=== PATIENT | female | born 1935 | race Caucasian/White ===

== ENCOUNTER 2020-07-25 08:01 | Emergency (ER) | payer MEDICARE, SELFPAY ==
--- NOTE | ~2020-07-25 | XR_ITS ---
XR wrist RT min 3V DATE: 07/25/2020 08:55 INDICATION: Fall. Right wrist injury. TECHNIQUE: 4 views COMPARISON: None FINDINGS: There is diffuse osteopenia. There are is prominent osteoarthritis at the triscaphe joint. There is mild osteoarthritis at the fir st carpometacarpal joint. There is prominent osteoarthritic change at the second and third metacarpop halangeal joints and especially the interphalangeal joint of the first digit and proximal interphalan geal joints of the third, fourth and fifth digits. No fracture or dislocation, periosteal reaction or bone destruction is detected. IMPRESSION: Polyarticular osteoarthritic arthritis Diffuse osteopenia No fracture or dislocation Reviewed, dictated and finalized at location A.
[2020-07-25 08:12] VITALS: BP 179/89; PULSE 86; RESP 16; TEMP 36.6; O2SAT 98
--- NOTE | 2020-07-25 10:47 | ED.GENADULT ---
HPI - General Adult General Chief complaint: Extremity Injury, Upper Stated complaint: fall, right wrist injury Time Seen by Provider: 07/25/20 08:59 Source: patient, family and RN notes reviewed Mode of arrival: ambulatory Limitations: dementia History of Present Illness HPI narrative: Patient is a 84-year-old female who presented to emergency department for concern of right wrist injury and pain patient presents with her son patient is at a memory care unit they were unsure as to the etiology of the pain son believes that she may have fallen patient on arrival is in the room alert and oriented to self pleasant and only complains of right wrist pain son denies other injuries or concerns Review of Systems Review of Systems: ROS unobtainable: Yes unobtainable due to medical condition PMFSH Past Medical History Medical History (Updated 07/25/20 @ 10:51 by Hira Galo PA-C) Chronic kidney disease (CKD) Dementia Hypertension Social History Social History (Updated 07/25/20 @ 10:49 by Hira Galo PA-C) Smoking status: Never smoker Exam Narrative: Exam Narrative: GENERAL: Well-appearing, well-nourished, and in no acute distress. HEAD: Normocephalic, atraumatic. EYES: PERRLA and EOMI. ENT: Nares clear, no rhinorrhea or epistaxis. Mucous membranes moist. CHEST: Clear to auscultation. No respiratory distress. No wheezes rales or rhonchi HEART: Regular rate and rhythm. No murmur heard. Normal peripheral pulses. ABDOMEN: Soft, nontender, nondistended EXTREMITIES: N tenderness in slight swelling and pain of the right wrist joint SKIN: Warm, dry, no rash. NEURO: Alert and oriented to self. . Neurovascularly intact. Cranial nerves II through XII grossly intact PSYCH: Normal mood and affect. Course Course Emergency Course: Patient will be placed in Aj wrap referred back to primary care son agrees with this plan does not want further evaluation and feels comfortable with her to go home Vital Signs Vital signs: Vital Signs Temperature 97.8 F 07/25/20 08:12 Pulse Rate 86 07/25/20 08:12 Respiratory Rate 16 07/25/20 08:12 Blood Pressure 179/89 H 07/25/20 08:12 Pulse Oximetry 98 07/25/20 08:12 Temperature 97.8 F 07/25/20 08:12 Pulse Rate 86 07/25/20 08:12 Respiratory Rate 16 07/25/20 08:12 Blood Pressure 179/89 H 07/25/20 08:12 Pulse Oximetry 98 07/25/20 08:12 Medical Decision Making MDM Narrative Medical decision making narrative: Patients injury or pain is consistent with musculoskeletal etiology. No signs of neurological or vascular compromise on exam. Compartments and tisues are soft without signs of compartment syndrome. Pain is felt appropriate for further evaluation on an outpatient basis. Vital Signs Vital Signs: Vital Signs Temperature 97.8 F 07/25/20 08:12 Pulse Rate 86 07/25/20 08:12 Respiratory Rate 16 07/25/20 08:12 Blood Pressure 179/89 H 07/25/20 08:12 Pulse Oximetry 98 07/25/20 08:12 Temperature 97.8 F 07/25/20 08:12 Pulse Rate 86 07/25/20 08:12 Respiratory Rate 16 07/25/20 08:12 Blood Pressure 179/89 H 07/25/20 08:12 Pulse Oximetry 98 07/25/20 08:12 Imaging Data Radiologist's impression: ITS Impressions Wrist X-Ray 07/25/20 09:02 IMPRESSION: Polyarticular osteoarthritic arthritis Diffuse osteopenia No fracture or dislocation Discharge Plan Discharge Clinical Impression: Injury of right wrist Patient Disposition: NH Nursing Home/Asst Living Condition: Stable Instructions: Antibiotic Form, Arthralgia (ED) Additional Instructions: Follow up with your primary care doctor in 5 days for re-evaluation. Go to ER for worsening pain, vision changes, nausea/vomiting, fever/chills, weakness, chest pain, shortness of breath, numbness/tingling, slurred speech, difficulty walking, change in mental status etc. or any other concerns. Take any prescribed medications as directed. Adam
[2020-07-25 11:12] VITALS: BP 134/75; PULSE 72; RESP 18; O2SAT 100
== END 2020-07-25 11:13 ==
PROVIDERS: Emergency Provider Emergency Medicine; PCP Internal Medicine
DX: S69.91XA Unspecified injury of right wrist, hand and finger(s), initial encounter (principal); X58.XXXA Exposure to other specified factors, initial encounter
CPT/HCPCS: 73110; 99283

== ENCOUNTER 2020-08-28 12:05 | Emergency (ER) | payer MEDICARE, SELFPAY ==
[2020-08-28] VITALS (14 sets, daily range): BP systolic 138–154; BP diastolic 66–83; PULSE 62–76; RESP 12–27; O2SAT 23–100
[2020-08-28 13:32] LABS: Basophils Absolute Auto 0.1 K/mm3 (0.0-0.1); Basophils Percent Auto 0.6 % (0.2-1.2); Eosinophils Absolute Auto 0.1 K/mm3 (0-0.3); Eosinophils Percent Auto 0.6 % (0-4.4); Hematocrit 33.6 % (37.0-47.0); Hemoglobin 10.9 g/dL (12.0-15.0); Immature Granulocyte Absolute 0.03 K/mm3 (0.00-0.031); Immature Granulocyte Percent A 0.3 % (0-0.5); Lymphocytes Absolute Auto 1.11 K/mm3 (0.9-3.2); Lymphocytes Percent Auto 11.1 % (18.3-44.2); Mean Corpuscular HGB Conc 32.4 g/dl (32-36); Mean Corpuscular Hemoglobin 32.3 pg (26-34); Mean Corpuscular Volume 99.7 fl (80-100); Mean Platelet Volume 9.3 fl (7.4-10.4); Monocytes Absolute Auto 0.8 K/mm3 (0.1-0.6); Monocytes Percent Auto 8.3 % (2.6-8.5); Neutrophils Absolute Auto 7.9 K/mm3 (1.3-6.7); Neutrophils Percent Auto 79.1 % (45.5-73.1); Platelet Count Result 240 k/mm3 (150-375); Red Blood Count 3.37 M/mm3 (4.2-5.4); Red Cell Distribution Width 13.7 % (11.5-14.5)
--- NOTE | 2020-08-28 13:37 | ECG_ITS ---
Measurements Intervals [place] Rate: 67 P: [place]: 0 QRS: -14 QRSD: 94 T: 10 QT: 446 QTc: 474 Interpretive Statements ATRIAL FIBRILLATION VOLTAGE CRITERIA FOR LVH BORDERLINE ST-T WAVE ABNORMALITY- DIFFUSE LEADS BASELINE ARTIFACT- II, III, AVR, AVF, V1-V6 ABNORMAL ECG Electronically Signed On 08-28-2020 13:40:56 CDT by Lencho Bermudez D.O.
[2020-08-28 13:42] LABS: Alanine Aminotransferase 28 U/L (4-35); Albumin Level 4.3 g/dL (3.5-5.1); Alkaline Phosphatase 78 U/L (38-126); Anion Gap 14 mmol/L (8-16); Aspartate Amino Transferase 39 U/L (14-36); Bilirubin,Total 0.6 mg/dL (0.2-1.3); Blood Urea Nitrogen 48 mg/dL (7-17); Calcium 8.9 mg/dL (8.4-10.2); Carbon Dioxide 25 mmol/L (22-30); Chloride 102 mmol/L (98-107); Estimated CRCL calculation 9 ml/min; Estimated Glomerular Filt Rate 10; Glucose 111 mg/dL (65-105); Lipase 193 U/L (23-300); Potassium 3.4 mmol/L (3.4-5.0); Sodium 141 mmol/L (137-145)
--- NOTE | 2020-08-28 13:48 | ED.GENADULT ---
HPI - General Adult General Chief complaint: Unspecified Stated complaint: MUSCLE SPASMS,NAUSEA Time Seen by Provider: 08/28/20 12:09 History of Present Illness HPI narrative: Patient is an 85-year-old female who presents ER with jerking movements of the arms and legs. Began today. Patient lives at [facility] due to dementia and being chronically ill. Receives dialysis Friday. Due for dialysis tomorrow. No recent medication change or other change. Son reports during dialysis on Friday patient had some intermittently low blood pressures. Staff was concerned about intermittent jerking of the arms and legs and referred patient to the ER. Patient has no history of restless leg syndrome or seizure. Related Data Allergies Allergy/AdvReac Type Severity Reaction Status Date / Time clonidine Allergy Unknown Verified 08/28/20 14:11 Review of Systems Review of Systems: ROS unobtainable: Yes unobtainable due to mental status PMFSH Past Medical History Medical History (Updated 08/28/20 @ 14:23 by Filipe Cisse MD) Chronic kidney disease (CKD) Dementia Dialysis patient Hypertension Social History Social History (Updated 07/25/20 @ 10:49 by Hira Galo PA-C) Smoking status: Never smoker Exam Narrative: Exam Narrative: GENERAL: Well-appearing, well-nourished, and in no acute distress. HEAD: Normocephalic, atraumatic. EYES: PERRL and EOMI. CHEST: Clear to auscultation. No respiratory distress. HEART: Regular rate and rhythm. Normal peripheral pulses. ABDOMEN: Soft, nontender, nondistended. EXTREMITIES: Normal range of motion. 2+ edema. SKIN: Warm, dry, no rash. NEURO: Alert and oriented x2. Patient will have 2 or 3 whole body jerks and then rest comfortably. She is in no distress and is conscious throughout. Does not appear to reflect seizure activity. Course Course Emergency Course: Unremarkable evaluation. No UTI. Will start on muscle x-ray to see if it helps with these intermittent jerks. Vital Signs Vital signs: Vital Signs Respiratory Rate 16 08/28/20 12:11 Blood Pressure 138/83 08/28/20 12:11 Pulse Oximetry 23 L 08/28/20 12:11 Pulse Rate 70 08/28/20 14:11 Respiratory Rate 24 H 08/28/20 14:11 Blood Pressure 154/71 H 08/28/20 13:31 Pulse Oximetry 99 08/28/20 14:11 Medical Decision Making Vital Signs Vital Signs: Vital Signs Respiratory Rate 16 08/28/20 12:11 Blood Pressure 138/83 08/28/20 12:11 Pulse Oximetry 23 L 08/28/20 12:11 Pulse Rate 70 08/28/20 14:11 Respiratory Rate 24 H 08/28/20 14:11 Blood Pressure 154/71 H 08/28/20 13:31 Pulse Oximetry 99 08/28/20 14:11 Lab Data Result diagrams: 08/28/20 13:25 08/28/20 13:25 Labs: Lab Results 08/28/20 08/28/20 08/28/20 Range/Units 13:25 13:25 13:57 WBC 10.0 (4.5-10.0) K/mm3 RBC 3.37 L (4.2-5.4) M/mm3 Hgb 10.9 L (12.0-15.0) g/dL Hct 33.6 L (37.0-47.0) % MCV 99.7 (80-100) fl MCH 32.3 (26-34) pg MCHC 32.4 (32-36) g/dl RDW 13.7 (11.5-14.5) % Plt Count 240 (150-375) k/mm3 MPV 9.3 (7.4-10.4) fl Immature Gran % (Auto) 0.3 (0-0.5) % Neut % (Auto) 79.1 H (45.5-73.1) % Lymph % (Auto) 11.1 L (18.3-44.2) % [place] % (Auto) 8.3 (2.6-8.5) % Eos % (Auto) 0.6 (0-4.4) % Baso % (Auto) 0.6 (0.2-1.2) % Lymph # (Auto) 1.11 (0.9-3.2) K/mm3 [place] # (Auto) 0.8 H (0.1-0.6) K/mm3 Eos # (Auto) 0.1 (0-0.3) K/mm3 Baso # (Auto) 0.1 (0.0-0.1) K/mm3 Abs Immat Gran (auto) 0.03 (0.00-0.031) K/mm3 Absolute Neuts (auto) 7.9 H (1.3-6.7) K/mm3 Absolute Nucleated RBC 0.0 (0.0-0.012) K/mm3 Nucleated RBC % 0.0 (0.0-0.2) % Sodium 141 (137-145) mmol/L Potassium 3.4 (3.4-5.0) mmol/L Chloride 102 (98-107) mmol/L Carbon Dioxide 25 (22-30) mmol/L Anion Gap 14 (8-16) mmol/L BUN 48 H (7-17) mg/dL Creatinine 4.20 H
[2020-08-28 14:12] LABS: Add Urine Microscopic? YES; Appearance Urine Clear (Clear); Bilirubin Urine Negative (Negative); Blood Urine Negative (Negative); Color Urine Yellow (Yellow); Glucose Urine UA Negative (Negative); Ketones Urine Negative (Negative); Leukocyte Esterase Ur Negative LEU/UL (Negative); Mucus Urine Rare /lpf; Nitrate Urine Negative (Negative); Protein Urine 2+ mg/dL (Negative); RBC Urine 0-2 /hpf (0-2); Specific Grav Ur 1.011 (1.001-1.035); Squamous Epithelial Cell Urine Few /hpf (Few); Urobilinogen Urine Negative mg/dL (<2.0); WBC Urine 0-3 /hpf
== END 2020-08-28 14:58 ==
PROVIDERS: Emergency Provider Emergency Medicine; PCP Nurse Practitioner Family
DX: G25.3 Myoclonus (principal); I12.0 Hypertensive chronic kidney disease with stage 5 chronic kidney disease or end stage renal disease; N18.6 End stage renal disease; Z99.2 Dependence on renal dialysis; F03.90 Unspecified dementia, unspecified severity, without behavioral disturbance, psychotic disturbance, mood disturbance, and anxiety; I48.91 Unspecified atrial fibrillation; R94.31 Abnormal electrocardiogram [ECG] [EKG]
CPT/HCPCS: 36415; 51701; 80053; 81001; 83690; 85025; 93005; 99283

== ENCOUNTER 2020-09-05 14:02 | Emergency (ER) | payer MEDICARE, SELFPAY ==
[2020-09-05 14:08] VITALS: BP 168/61; PULSE 74; RESP 28; TEMP 36.6; O2SAT 100
[2020-09-05 14:17] VITALS: BP 168/61; PULSE 74; RESP 28; TEMP 36.6; O2SAT 100
--- NOTE | 2020-09-05 14:30 | ED.GENADULT ---
HPI - General Adult General Chief complaint: Anxiety Stated complaint: anxiety/POS UTI Source: family Mode of arrival: ambulatory Limitations: dementia History of Present Illness HPI narrative: This is a 85-year-old female who presented to urgent care with increased confusion. According to patient daughter she has noted that her mother confusion has increased in the last couple of days. She is here today to rule out a urinary tract infection patient does have a history of UTIs. Patient notes that in the past with her UTIs she does become confused. Patient does deny any abdominal or back pain dysuria, hematuria urgency or frequency. The patient denies SOB, CP, palpitation, extremity numbness, lightheadedness, dizziness, constipation, diarrhea, chills, or fever. Patient was unable to urinate this day. UTI not ruled out due to patient's inability to urinate. Daughter will take patient back to [facility] and collect specimen and UA and sensitivity to be ran there. Related Data Home Medications Medication Instructions Recorded Confirmed Eliquis mg 09/05/20 buspirone mg 09/05/20 diltiazem HCl PO 09/05/20 furosemide 09/05/20 haloperidol 09/05/20 lovastatin mg 09/05/20 mirtazapine mg 09/05/20 pramipexole mg 09/05/20 tramadol mg 09/05/20 Allergies Allergy/AdvReac Type Severity Reaction Status Date / Time clonidine Allergy Unknown Verified 08/28/20 14:11 Review of Systems Review of Systems: Narrative: A 14 organ system Review of Systems was performed and pertinent positives included in the HPI, otherwise remaining ROS is negative. [facility] Past Medical History Medical History (Updated 09/05/20 @ 15:37 by SHAINA Huizar) Chronic kidney disease (CKD) Dementia Dialysis patient Hypertension Family History Family History (Updated 09/05/20 @ 14:31 by SHAINA Huizar) Other Family history non-contributory Social History Social History (Updated 07/25/20 @ 10:49 by Hira Galo PA-C) Smoking status: Never smoker Exam Narrative: Exam Narrative: GENERAL: This is a well-nourished, well-developed patient, in no apparent distress. HEAD: normocephalic, atraumatic. EYES: PERRL. Sclera clear/white. Vision is grossly intact. EARS: External ears normal, auditory canals clear and without drainage, TMs normal without perforation. Hearing grossly intact. NOSE: External nose normal with no obvious nasal discharge, nares without redness, no rhinorrhea. THROAT: Mucous membranes moist, posterior pharynx clear. NECK: Neck supple, non-tender without lymphadenopathy, masses or thyromegaly. CARDIOVASCULAR: Regular rate and rhythm without murmurs, gallops, or rubs. RESPIRATORY: Clear to auscultation. Breath sounds equal bilaterally. No wheezes, rales, or rhonchi. GASTROINTESTINAL: Abdomen soft, non-tender, nondistended. Bowel sounds are active. No hepato-splenomegaly, or palpable masses. No guarding. SKIN: warm, intact with no suspicious lesions or rash, good texture and turgor. NEURO: awake, alert, and oriented to person, place and time. There were no obvious focal neurologic abnormalities. Steady gait EXTREMITIES: Normal range of motion. No edema. No calf tenderness. Negative Homans sign bilaterally. BACK: Nontender without deformity or crepitance. No flank tenderness. Course Vital Signs Vital signs: Vital Signs Temperature 97.8 F 09/05/20 14:08 Pulse Rate 74 09/05/20 14:08 Respiratory Rate 28 H 09/05/20 14:08 Blood Pressure 168/61 H 09/05/20 14:08 Pulse Oximetry 100 09/05/20 14:08 Temperature 97.8 F 09/05/20 14:17 Pulse Rate 74 09/05/20 14:17 Respiratory Rate 28 H 09/05/20 14:17 Blood Pressure 168/61 H 09/05/20 14:17 Pulse Oximetry 100 09/05/20 14:17 Medical Decision Making Differential Diagnosis Differential Diagnosis: UTI versus pyelonephritis, versus worsening dementia versus anxiety Vital Signs Vital Signs: Vital Signs Temperature 97.8 F 0
--- NOTE | 2020-09-05 15:57 | PC.NURSE ---
Patient unable to void at time of visit. POC urinalysis not done on this date
== END 2020-09-05 15:42 | disposition home or self-care (01) ==
PROVIDERS: Emergency Provider Nurse Practitioner; PCP Nurse Practitioner Family
DX: R41.0 Disorientation, unspecified (principal); F03.90 Unspecified dementia, unspecified severity, without behavioral disturbance, psychotic disturbance, mood disturbance, and anxiety; I12.0 Hypertensive chronic kidney disease with stage 5 chronic kidney disease or end stage renal disease; N18.6 End stage renal disease; Z99.2 Dependence on renal dialysis; Z87.440 Personal history of urinary (tract) infections
CPT/HCPCS: 99212; G0463

== ENCOUNTER 2021-05-31 10:14 | Outpatient (CLI) | payer MEDICARE, SELFPAY ==
--- NOTE | ~2021-05-31 | CT_ITS ---
EXAMINATION: CT abdomen pelvis w con DATE: 05/31/2021 10:47 INDICATION: Abdominal mass. Swelling. TECHNIQUE: Computed tomography (CT) of the abdomen and pelvis was performed with 100 cc Omnipaque 350 intravenous contrast. The dose-length product was 287.07 mGy-cm. Automated exposure control and iter ative reconstruction technique were employed. COMPARISON: None. FINDINGS: There is subsegmental atelectasis of the lung bases. Cardiomegaly. Small pericardial effusi on. There is a hiatal hernia. There is a fat-containing upper abdominal wall ventral hernia. There is polycystic kidney disease. There are nonobstructing bilateral renal stones. No significant hydroneph rosis. There is a right inguinal hernia containing nonobstructed bowel and fluid. There is a left inguinal h ernia containing nonobstructed bowel. No bowel obstruction. No free air. There is gas in the bladder which may be due to recent instrumentation. Clinically correlate. Mild bladder wall thickening. Status post cholecystectomy with expected prominence of the bile ducts. There is a cyst in the right hepatic lobe. There is hepatomegaly. The spleen, pancreas, adrenal glands are unremarkable. Moderate lumbar spondylosis with grade 1 degenerative spondylolisthesis at L4-5. No focal lytic or blastic les ions. IMPRESSION: 1. Cardiomegaly with small pericardial effusion. 2: Bilateral inguinal hernias containing nonobstructed bowel. 3: Upper abdominal wall ventral hernia containing fat. 4: Hepatomegaly with mild intrahepatic biliary dilatation, likely due to prior cholecystectomy and pa tient age. 5: Polycystic kidney disease. Nonobstructing bilateral nephrolithiasis. 6: Mild bladder wall thickening. Consider cystitis in the appropriate clinical setting. Small amount of bladder lumen gas, likely from recent instrumentation. Clinically correlate. Reviewed, dictated and finalized at location B. IMPRESSION: 1. Cardiomegaly with small pericardial effusion. 2: Bilateral inguinal hernias containing nonobstructed bowel. 3: Upper abdominal wall ventral hernia containing fat. 4: Hepatomegaly with mild intrahepatic biliary dilatation, likely due to prior cholecystectomy and patient age. 5: Polycystic kidney disease. Nonobstructing bilateral nephrolithiasis. 6: Mild bladder wall thickening. Consider cystitis in the appropriate clinical setting. Small amount of bladder lumen gas, likely from recent instrumentation. Clinically correlate.
[2021-05-31 10:39] LABS: Estimated Glomerular Filt Rate 9
== END 2021-05-31 10:15 | disposition home or self-care (01) ==
LOC: ANHIMG 10:17
DX: R19.00 Intra-abdominal and pelvic swelling, mass and lump, unspecified site (principal); I51.7 Cardiomegaly; K40.20 Bilateral inguinal hernia, without obstruction or gangrene, not specified as recurrent; K43.9 Ventral hernia without obstruction or gangrene; N20.0 Calculus of kidney; Q61.3 Polycystic kidney, unspecified
CPT/HCPCS: 74177; Q9967

== ENCOUNTER 2021-12-22 10:59 | Emergency (ER) | payer MEDICARE, SELFPAY ==
[2021-12-22] VITALS (9 sets, daily range): BP systolic 132–157; BP diastolic 66–77; PULSE 72–83; RESP 16–27; TEMP 37; O2SAT 98–100
--- NOTE | ~2021-12-22 | CT_ITS ---
EXAMINATION: CT abdomen pelvis wo con DATE: 12/22/2021 13:19 INDICATION: Altered mental status. Abdominal pain. TECHNIQUE: Computed tomography (CT) of the abdomen and pelvis was performed without intravenous contr ast. The dose-length product was 448.14 mGy-cm. Automated exposure control and iterative reconstructi on technique were employed. COMPARISON: CT dated 05/31/2021. FINDINGS: Moderate cardiomegaly with pericardial effusion.. There is bibasilar atelectasis/scarring. There is polycystic kidney disease. Multiple bilateral renal stones. No significant hydronephrosis. T here is bilateral renal cortical atrophy. There are cholecystectomy clips. There is an upper abdomina l ventral hernia containing fat. There is a fat-containing periumbilical hernia. There is a right ing uinal hernia containing nonobstructed bowel. Moderate colonic fecal loading. There is hepatomegaly. T here is a left inguinal hernia containing fat. Nonobstructive bowel pattern. There is a surgical anas tomosis in the colon. IMPRESSION: 1. Polycystic kidney disease with multiple bilateral renal stones. No hydronephrosis. 2: Multiple ventral hernias containing fat. Bilateral inguinal hernias with right inguinal hernia co ntaining nonobstructed bowel and fluid. 3: Moderate cardiomegaly with pericardial effusion. 4: Hepatomegaly. Reviewed, dictated and finalized at location A. IMPRESSION: 1. Polycystic kidney disease with multiple bilateral renal stones. No hydroneph rosis. 2: Multiple ventral hernias containing fat. Bilateral inguinal hernias with ri ght inguinal hernia containing nonobstructed bowel and fluid. 3: Moderate cardiomegaly with pericardial effusion. 4: Hepatomegaly.
--- NOTE | ~2021-12-22 | CT_ITS ---
EXAMINATION: CT brain wo con DATE: 12/22/2021 13:19 INDICATION: Altered mental status TECHNIQUE: Computed tomography (CT) of the head was performed without intravenous contrast. The dose- length product was 605.33 mGy-cm. Automated exposure control and iterative reconstruction technique w ere employed. COMPARISON: None FINDINGS: No acute intracranial hemorrhage, infarction, mass or mass effect. No ventriculomegaly or m idline shift. Basilar cisterns are patent. Generalized atrophy. There are scattered moderate perivent ricular and subcortical white matter changes, most likely related to small vessel ischemic disease (m icroangiopathy). Paranasal sinuses and mastoids are pneumatized. No depressed skull fractures. IMPRESSION: 1. No acute intracranial abnormality. 2: Chronic age-related findings. Reviewed, dictated and finalized at location A.
--- NOTE | ~2021-12-22 | XR_ITS ---
XR chest 1V portable 12/22/2021 12:42 Indication: Hypertension. Procedure: AP portable chest Comparison: No prior studies for comparison. Findings: Cardiomegaly. No focal pneumonia, edema or effusion. There is atherosclerosis of the aorta. No pneumothorax. Impression: 1: Cardiomegaly. Reviewed, dictated and finalized at location A. Impression: 1: Cardiomegaly.
--- NOTE | 2021-12-22 12:07 | ECG_ITS ---
Measurements Intervals [place] Rate: 75 P: GA: 0 QRS: -17 QRSD: 94 T: 16 QT: 411 QTc: 460 Interpretive Statements ATRIAL FIBRILLATION VOLTAGE CRITERIA FOR LVH [MEETS CRITERIA IN ONE OF: R(aVL), S(V1), R(V5), R(V5/V6)+S(V1)] POSSIBLE SEPTAL MYOCARDIAL INFARCTION , OF INDETERMINATE AGE [30 ms Q WAVE IN V1/V2] COMPARED TO ECG 08/28/2020 12:12:52 DIFFERENT LEAD POSITION V2 Electronically Signed On 12-23-2021 10:12:36 CDT by Oli Muniz M.D.
[2021-12-22 12:44] LABS: Add Urine Microscopic? YES; Appearance Urine Clear (Clear); Bilirubin Urine Negative (Negative); Blood Urine Negative (Negative); Color Urine Yellow (Yellow); Glucose Urine UA Negative (Negative); Ketones Urine Negative (Negative); Leukocyte Esterase Ur 2+ LEU/UL (Negative); Nitrate Urine Negative (Negative); Protein Urine 1+ mg/dL (Negative); RBC Urine 0-2 /hpf (0-2); Specific Grav Ur 1.009 (1.001-1.035); Squamous Epithelial Cell Urine Rare /hpf (Few); Urobilinogen Urine Negative mg/dL (<2.0); WBC Urine 21-30 /hpf
--- NOTE | 2021-12-22 12:58 | ED.GENADULT ---
HPI - General Adult General Chief complaint: Altered Mental Status Stated complaint: erratic behavior , uti? Time Seen by Provider: 12/22/21 12:06 Source: RN notes reviewed History of Present Illness HPI narrative: Patient presents emergency department from [facility] for altered mental status. The history is per the patient and her daughter. Per the daughter the patient lives in [facility] with a history of dementia and states that the patient has been more confused over the past several days states that she frequently gets this way with urinary tract infections. Patient denies any fevers or chills, nausea vomiting or diarrhea notes occasional lower abdominal pain. The daughter the patient has a history of hernias. States patient does have a history of dialysis with dialysis on Wednesdays and Fridays she has not missed any dialysis Related Data Home Medications Medication Instructions Recorded Confirmed apixaban 2.5 mg tablet (Eliquis) mg 09/05/20 buspirone 7.5 mg tablet mg 09/05/20 diltiazem HCl 180 mg PO 09/05/20 capsule,extended release 24 hr furosemide 40 mg tablet 09/05/20 haloperidol 0.5 mg tablet 09/05/20 lovastatin 20 mg tablet mg 09/05/20 mirtazapine 45 mg tablet mg 09/05/20 pramipexole 0.25 mg tablet mg 09/05/20 tramadol 50 mg tablet mg 09/05/20 Allergies Allergy/AdvReac Type Severity Reaction Status Date / Time clonidine Allergy Unknown Verified 12/22/21 11:23 Review of Systems Review of Systems: Gen.: Denies fevers or chills ENT: Denies congestion Respiratory: Denies shortness of breath or cough CV: Denies chest pain or palpitations GI: Denies abdominal pain nausea, emesis or diarrhea reports history of frequent UTIs Musculoskeletal: Denies back pain or muscle pain Neuro reports altered mental status Skin: Denies rash Except as documented, all other systems reviewed and negative [facility] Past Medical History Medical History Chronic kidney disease (CKD) Dementia Dialysis patient Hypertension Family History Family History (Updated 09/05/20 @ 14:31 by SHAINA Huizar) Other Family history non-contributory Social History Social History (Reviewed 12/22/21 @ 14:07 by ALIZE Sheppard Smoking status: Never smoker Exam Narrative: APPEARANCE: No acute distress, nontoxic, resting in bed EYES: EOMI HEENT: Normocephalic, atraumatic, OMM RESPIRATORY: No respiratory distress Clear to auscultation bilaterally with no rhonchi wheezing or rales. CARDIOVASCULAR: Regular rate and rhythm without murmurs rubs or gallops. ABDOMINAL: Soft, nondistended, mild tenderness in right lower quadrant left lower quadrant no tenderness right upper quadrant left upper quadrant no rebound or guarding, bilateral inguinal hernias palpated that are soft and easily reducible MUSCULOSKELETAl: Moves all extremities. No clubbing, cyanosis or edema. NEURO: Awake and alert x 1. Following commands, speech normal, no focal deficits SKIN:: Warm, dry. No rashes lesions or abrasions PSYCHIATRIC: Normal affect/mood, Course Course Emergency Course: Discussed with patient results of workup and diagnosis. Discussed need for follow-up with primary care, proper use of medication, and reasons to return to the emergency department. Patient understands and agrees to current treatment plan Jayme with the daughter she is comfortable with patient returning patient's had no nausea or vomiting will start on antibiotics secondary to her dialysis we will renally dose Discussed with patient results of workup and diagnosis. Discussed need for follow-up with primary care, proper use of medication, and reasons to return to the emergency department. Patient understands and agrees to current treatment plan Vital Signs Vital signs: Vital Signs Temperature 98.6 F 12/22/21 11:19 Pulse Rate 76 12/22/21 11:19 Respiratory Rate 16 12/22/21 11:19 [place]oo
[2021-12-22 12:59] LABS: Basophils Absolute Auto 0.1 K/mm3 (0.0-0.1); Basophils Percent Auto 0.6 % (0.2-1.2); Eosinophils Absolute Auto 0.1 K/mm3 (0-0.3); Eosinophils Percent Auto 1.7 % (0-4.4); Hematocrit 32.5 % (37.0-47.0); Hemoglobin 10.3 g/dL (12.0-15.0); Immature Granulocyte Absolute 0.03 K/mm3 (0.00-0.031); Immature Granulocyte Percent A 0.4 % (0-0.5); Lymphocytes Absolute Auto 1.05 K/mm3 (0.9-3.2); Lymphocytes Percent Auto 12.7 % (18.3-44.2); Mean Corpuscular HGB Conc 31.7 g/dl (32-36); Mean Corpuscular Volume 100.9 fl (80-100); Mean Platelet Volume 8.9 fl (7.4-10.4); Neutrophils Percent Auto 72.6 % (45.5-73.1); Platelet Count Result 311 k/mm3 (150-375); Red Blood Count 3.22 M/mm3 (4.2-5.4); Red Cell Distribution Width 13.8 % (11.5-14.5); White Blood Count 8.3 K/mm3 (4.5-10.0)
[2021-12-22 13:15] LABS: Alanine Aminotransferase 22 U/L (6-35); Albumin Level 4.1 g/dL (3.5-5.1); Alkaline Phosphatase 70 U/L (38-126); Anion Gap 12 mmol/L (8-16); Aspartate Amino Transferase 30 U/L (14-36); Bilirubin,Total 0.5 mg/dL (0.2-1.3); Blood Urea Nitrogen 46 mg/dL (7-17); Calcium 8.6 mg/dL (8.4-10.2); Carbon Dioxide 31 mmol/L (22-30); Chloride 93 mmol/L (98-107); Estimated CRCL calculation 7 ml/min; Estimated Glomerular Filt Rate 7; Glucose 110 mg/dL (65-110); Potassium 3.9 mmol/L (3.4-5.0); Sodium 136 mmol/L (137-145)
== END 2021-12-22 14:43 | disposition home or self-care (01) ==
PROVIDERS: Emergency Provider Emergency Medicine; PCP Nurse Practitioner Family
DX: N39.0 Urinary tract infection, site not specified (principal); I12.9 Hypertensive chronic kidney disease with stage 1 through stage 4 chronic kidney disease, or unspecified chronic kidney disease; N18.9 Chronic kidney disease, unspecified; F03.90 Unspecified dementia, unspecified severity, without behavioral disturbance, psychotic disturbance, mood disturbance, and anxiety; Z79.01 Long term (current) use of anticoagulants; I51.7 Cardiomegaly; K43.9 Ventral hernia without obstruction or gangrene; K40.20 Bilateral inguinal hernia, without obstruction or gangrene, not specified as recurrent; I31.39 Other pericardial effusion (noninflammatory); R16.0 Hepatomegaly, not elsewhere classified; Q61.3 Polycystic kidney, unspecified; I48.91 Unspecified atrial fibrillation; R94.31 Abnormal electrocardiogram [ECG] [EKG]
CPT/HCPCS: 36415; 70450; 71045; 74176; 80053; 81001; 85025; 87086; 93005; 96365; 99284; J0696

== ENCOUNTER 2022-02-14 11:13 | Emergency (ER) | payer MEDICARE, SELFPAY ==
[2022-02-14 11:27] VITALS: BP 124/60; PULSE 91; RESP 18; TEMP 36.7; O2SAT 99
--- NOTE | 2022-02-14 11:27 | ECG_ITS ---
Measurements Intervals [place] Rate: 77 P: [place]: 0 QRS: -5 QRSD: 95 T: 34 QT: 406 QTc: 462 Interpretive Statements ATRIAL FIBRILLATION VOLTAGE CRITERIA FOR LVH [MEETS CRITERIA IN ONE OF: R(aVL), S(V1), R(V5), R(V5/V6)+S(V1)] COMPARED TO ECG 12/22/2021 12:49:40 NO SIGNIFICANT CHANGES Electronically Signed On 02-14-2022 11:55:49 ADMINISTRATIVE RECEPTIONIST by Nicolás Gonzalez M.D.
[2022-02-14 12:00] LABS: Basophils Absolute Auto 0.1 K/mm3 (0.0-0.1); Basophils Percent Auto 0.7 % (0.2-1.2); Eosinophils Absolute Auto 0.3 K/mm3 (0-0.3); Eosinophils Percent Auto 2.5 % (0-4.4); Hematocrit 33.7 % (37.0-47.0); Hemoglobin 10.6 g/dL (12.0-15.0); Immature Granulocyte Absolute 0.05 K/mm3 (0.00-0.031); Immature Granulocyte Percent A 0.5 % (0-0.5); Lymphocytes Absolute Auto 1.55 K/mm3 (0.9-3.2); Mean Corpuscular HGB Conc 31.5 g/dl (32-36); Mean Corpuscular Volume 101.8 fl (80-100); Mean Platelet Volume 9.1 fl (7.4-10.4); Monocytes Absolute Auto 1.3 K/mm3 (0.1-0.6); Monocytes Percent Auto 12.5 % (2.6-8.5); Neutrophils Absolute Auto 7.1 K/mm3 (1.3-6.7); Neutrophils Percent Auto 68.8 % (45.5-73.1); Platelet Count Result 250 k/mm3 (150-375); Red Blood Count 3.31 M/mm3 (4.2-5.4); Red Cell Distribution Width 14.3 % (11.5-14.5); White Blood Count 10.3 K/mm3 (4.5-10.0)
[2022-02-14 12:10] LABS: INR 1.1; Prothrombin Time 13.7 Seconds (11.1-14.7)
[2022-02-14 12:11] LABS: Partial Thromboplastin Time 28.9 SECONDS (22.3-36.8)
[2022-02-14 12:16] LABS: Alanine Aminotransferase 6 U/L (6-35); Albumin Level 4.2 g/dL (3.5-5.1); Alkaline Phosphatase 57 U/L (38-126); Anion Gap 10 mmol/L (8-16); Aspartate Amino Transferase 25 U/L (14-36); Bilirubin,Total 0.5 mg/dL (0.2-1.3); Blood Urea Nitrogen 47 mg/dL (7-17); Calcium 8.2 mg/dL (8.4-10.2); Carbon Dioxide 28 mmol/L (22-30); Chloride 95 mmol/L (98-107); Estimated CRCL calculation 7 ml/min; Estimated Glomerular Filt Rate 8; Glucose 83 mg/dL (65-110); Potassium 3.8 mmol/L (3.4-5.0); Sodium 133 mmol/L (137-145)
--- NOTE | 2022-02-14 13:03 | ED.AMS ---
HPI - Altered Mental Status General Chief Complaint: Altered Mental Status Stated Complaint: altered mental status Time Seen by Provider: 02/14/22 13:03 Source: patient and family Mode of arrival: ambulatory Limitations: no limitations History of Present Illness HPI narrative: Patient is an 86-year-old female with a history of dementia, hypertension, hyperlipidemia, recurrent UTIs, presenting to the emergency department for evaluation of increased agitation and aggressive behavior. History is provided by family secondary to the patient's dementia. Daughter present in room states that her mom has a tendency to become agitated and aggressive when she has urinary tract infection. They deny fever, chills, cough, or patient reporting pain. They states that she recently had hernia surgery and has some bruising to her abdomen but otherwise has not been reporting any abdominal pain. Incision site appears bruised but no breakdown or redness. At the time of my assessment patient is alert and oriented to person which is her baseline. She denies any pain. Patient's daughter states that the agitated behavior is abnormal for her. States that last night she was packing a garbage bag full of her belongings. Related Data Home Medications Medication Instructions Recorded Confirmed apixaban 2.5 mg tablet (Eliquis) mg 09/05/20 buspirone 7.5 mg tablet mg 09/05/20 diltiazem HCl 180 mg PO 09/05/20 capsule,extended release 24 hr furosemide 40 mg tablet 09/05/20 haloperidol 0.5 mg tablet 09/05/20 lovastatin 20 mg tablet mg 09/05/20 mirtazapine 45 mg tablet mg 09/05/20 pramipexole 0.25 mg tablet mg 09/05/20 tramadol 50 mg tablet mg 09/05/20 Allergies Allergy/AdvReac Type Severity Reaction Status Date / Time clonidine Allergy Unknown Verified 12/22/21 11:23 Review of Systems Review of Systems: ROS unobtainable: Yes unobtainable due to medical condition (dementia) [facility] Past Medical History Medical History Chronic kidney disease (CKD) Dementia Dialysis patient Hypertension Family History Family History (Updated 09/05/20 @ 14:31 by SHAINA Huizar) Other Family history non-contributory Social History Social History Smoking status: Never smoker Exam Narrative: GENERAL: Awake, alert HEAD: Normocephalic, atraumatic. EYES: PERRLA and EOMI. ENT: Nares clear, no rhinorrhea or epistaxis. Mucous membranes moist. NECK: Supple. CHEST: No respiratory distress, breathing even and non labored HEART: Regular rate, sinus rhythm ABDOMEN:Non distended, non tender; ecchymosis of the lower abdomen and an incision site on the right lower quadrant that is clean, dry, intact. Ecchymoses present EXTREMITIES: Normal range of motion. No edema. SKIN: Warm, dry, no rash. NEURO:No focal deficits. Alert and oriented x1-2, at baseline Course Vital Signs Vital signs: Vital Signs Temperature 36.7 C 02/14/22 11:27 Pulse Rate 91 02/14/22 11:27 Respiratory Rate 18 02/14/22 11:27 Blood Pressure 124/60 02/14/22 11:27 Pulse Oximetry 99 02/14/22 11:27 Temperature 36.7 C 02/14/22 11:27 Pulse Rate 79 02/14/22 13:55 Respiratory Rate 19 02/14/22 13:40 Blood Pressure 124/60 02/14/22 11:27 Pulse Oximetry 100 02/14/22 13:40 MDM - Altered Mental Status MDM Narrative Medical decision making narrative: Patient presenting for evaluation of aggressive behavior agitation overnight per daughter. At the time of assessment, ABCs are intact and vital signs are stable. Patient is currently awake alert and oriented at baseline. No focal deficits. Pt without pain; she has a reassuring, benign abdominal exam with what appears to be normal post operative course at this point. Her urine is lightly abnormal, but I compared it to her previous urine when she was treated for UTI and that showed no growth
[2022-02-14 13:14] LABS: Bacteria Urine Trace /hpf; Mucus Urine Rare /lpf; Squamous Epithelial Cell Urine Moderate /hpf (Few); WBC Urine 31-50 /hpf
[2022-02-14 13:21] LABS: Appearance Urine Clear (Clear); Bilirubin Urine Negative (Negative); Blood Urine 1+ (Negative); Color Urine Yellow (Yellow); Glucose Urine UA Negative (Negative); Ketones Urine Negative (Negative); Leukocyte Esterase Ur 2+ LEU/UL (Negative); Nitrate Urine Negative (Negative); Protein Urine 2+ mg/dL (Negative); Urobilinogen Urine 0.2 mg/dL (<2.0); pH Urine 6.5 (5.0-9.0)
[2022-02-14 13:24] LABS: Add Urine Microscopic? YES
[2022-02-14 13:40] VITALS: PULSE 77; RESP 19; O2SAT 100
[2022-02-14 13:55] VITALS: PULSE 79
[2022-02-14 14:39] VITALS: BP 132/67; PULSE 67; RESP 20; O2SAT 100
== END 2022-02-14 14:52 | disposition home or self-care (01) ==
PROVIDERS: Emergency Medicine; Emergency Provider Emergency Medicine; PCP Nurse Practitioner Family
DX: F03.911 Unspecified dementia, unspecified severity, with agitation (principal); R82.998 Other abnormal findings in urine; I12.0 Hypertensive chronic kidney disease with stage 5 chronic kidney disease or end stage renal disease; N18.6 End stage renal disease; E78.5 Hyperlipidemia, unspecified; Z87.440 Personal history of urinary (tract) infections
CPT/HCPCS: 36415; 80053; 81001; 85025; 85610; 85730; 87086; 93005; 99284

== ENCOUNTER 2022-08-17 16:31 | Emergency (ER) | payer MEDICARE, SELFPAY ==
--- NOTE | ~2022-08-17 | XR_ITS ---
Right Humerus Technique: AP and lateral views were obtained. Clinical History: Pain Findings: No fracture or dislocation is seen. Osseous alignment is anatomic. Visualized joint spaces are grossly preserved. Soft tissues are unremarkable. Impression: Unremarkable examination. No fracture or dislocation. Reviewed, dictated and finalized at location . Impression: Unremarkable examination. No fracture or dislocation.
[2022-08-17 16:41] VITALS: BP 181/84; PULSE 78; RESP 16; TEMP 36.6; O2SAT 98
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
== END 2022-08-17 17:45 | disposition home or self-care (01) ==
PROVIDERS: Emergency Provider Nurse Practitioner; PCP Nurse Practitioner Family
DX: M79.621 Pain in right upper arm (principal); W01.0XXA Fall on same level from slipping, tripping and stumbling without subsequent striking against object, initial encounter; I12.0 Hypertensive chronic kidney disease with stage 5 chronic kidney disease or end stage renal disease; N18.6 End stage renal disease; Z99.2 Dependence on renal dialysis; F03.90 Unspecified dementia, unspecified severity, without behavioral disturbance, psychotic disturbance, mood disturbance, and anxiety
CPT/HCPCS: 73060; 99213; G0463

== ENCOUNTER 2022-10-05 22:42 | Emergency (ER) | payer MEDICARE, SELFPAY ==
[2022-10-05 22:45] VITALS: BP 159/69; PULSE 74; RESP 16; TEMP 36.3; O2SAT 100
[2022-10-05 22:56] VITALS: BP 151/59; PULSE 77; RESP 15; TEMP 36.4; O2SAT 99
[2022-10-06 00:13] VITALS: BP 139/73; PULSE 71; RESP 20; O2SAT 98
[2022-10-06 00:28] LABS: Basophils Absolute Auto 0.1 K/mm3 (0.0-0.1); Basophils Percent Auto 0.7 % (0.2-1.2); Eosinophils Absolute Auto 0.1 K/mm3 (0-0.3); Eosinophils Percent Auto 1.3 % (0-4.4); Hematocrit 30.2 % (37.0-47.0); Hemoglobin 9.9 g/dL (12.0-15.0); Immature Granulocyte Absolute 0.03 K/mm3 (0.00-0.031); Immature Granulocyte Percent A 0.4 % (0-0.5); Lymphocytes Absolute Auto 1.29 K/mm3 (0.9-3.2); Lymphocytes Percent Auto 18.2 % (18.3-44.2); Mean Corpuscular HGB Conc 32.8 g/dl (32-36); Mean Corpuscular Hemoglobin 33.1 pg (26-34); Monocytes Absolute Auto 0.7 K/mm3 (0.1-0.6); Monocytes Percent Auto 9.3 % (2.6-8.5); Neutrophils Percent Auto 70.1 % (45.5-73.1); Platelet Count Result 237 k/mm3 (150-375); Red Blood Count 2.99 M/mm3 (4.2-5.4); Red Cell Distribution Width 14.3 % (11.5-14.5); White Blood Count 7.1 K/mm3 (4.5-10.0)
--- NOTE | 2022-10-06 00:56 | ED.GENADULT ---
HPI - General Adult General Chief complaint: Skin/Abscess/Foreign Body Stated complaint: rash on legs Time Seen by Provider: 10/05/22 23:39 History of Present Illness HPI narrative: This is an 87-year-old female on dialysis presenting with a rash. Patient is in dementia care and is a poor historian. She has no physical complaints this time. She does have a rash over her thighs that may have been itchy at 1 point earlier today. She is sent from correction to be evaluated emergency department. Related Data Home Medications Medication Instructions Recorded Confirmed apixaban 2.5 mg tablet (Eliquis) 2.5 mg PO BID 09/05/20 08/17/22 diltiazem HCl 180 mg 180 mg PO DAILY 09/05/20 08/17/22 capsule,extended release 24 hr furosemide 40 mg tablet 20 mg PO DAILY 09/05/20 08/17/22 buspirone 10 mg tablet 10 mg PO TID 08/17/22 08/17/22 calcium acetate(phosphat bind) 667 1,334 mg PO TIDWMEAL 08/17/22 08/17/22 mg capsule cephalexin 500 mg capsule 250 mg PO HS 08/17/22 08/17/22 ergocalciferol (vitamin D2) 1,250 1,250 mcg PO WEEKLY 08/17/22 08/17/22 mcg (50,000 unit) capsule (Vitamin D2) quetiapine 25 mg tablet 25 mg PO HS 08/17/22 08/17/22 trazodone 50 mg tablet 50 mg PO HS 08/17/22 08/17/22 trimethoprim 100 mg tablet 100 mg PO HS 08/17/22 08/17/22 vitamin B complex (B 1 tablet PO DAILY 08/17/22 08/17/22 Complex-Vitamin B12 tablet) vitamin E (dl, acetate) 180 mg 180 mg PO DAILY 08/17/22 08/17/22 (400 unit) capsule Allergies Allergy/AdvReac Type Severity Reaction Status Date / Time clonidine Allergy Unknown Verified 10/05/22 22:42 zolpidem [From Ambien] Allergy Unknown Verified 10/05/22 22:42 [facility] Past Medical History Medical History Chronic kidney disease (CKD) Dementia Dialysis patient Hypertension Family History Family History Other Family history non-contributory Social History Social History Smoking status: Never smoker Exam Narrative: APPEARANCE: No apparent distress. Head: atraumatic. EYES: EOMI, NOSE: Atraumatic NECK: Trachea midline RESPIRATORY: No increased rate of breathing CARDIOVASCULAR: RRR, AV fistula in left arm with palpable thrill ABDOMINAL: Non-distended MUSCULOSKELETAl: No obvious deformities NEURO: Alert. Moving 4/4 extremities SKIN:: purpura rash over the thighs PSYCHIATRIC: Normal affect Course Vital Signs Vital signs: Vital Signs Temperature 97.3 F L 10/05/22 22:45 Pulse Rate 74 10/05/22 22:45 Respiratory Rate 16 10/05/22 22:45 Blood Pressure 159/69 H 10/05/22 22:45 Pulse Oximetry 100 10/05/22 22:45 Oxygen Delivery Room Air 10/05/22 22:45 Temperature 97.6 F 10/05/22 22:56 Pulse Rate 67 10/06/22 01:01 Respiratory Rate 12 10/06/22 01:01 Blood Pressure 151/58 H 10/06/22 01:01 Pulse Oximetry 100 10/06/22 01:01 Oxygen Delivery Room Air 10/05/22 22:45 Medical Decision Making [facility] Narrative Medical decision making narrative: -Presentation: 87-year-old correction patient presenting with a purpura spots over the thighs. -DDX includes but is not limited to: calciphylaxis, allergic reaction, digital trauma and heparin use -Co-morbidities complicating care: end-stage renal disease, dementia -Social determinants of health: correction patient, dementia -External Chart Review: none -Hx from independent Sources: son at bedside -Independent interpretation of studies: CBC within acceptable limits. Platelets normal. metabolic panel showed end-stage renal disease. -Discussion of Management/Consultants: none -Dx tests considered but not ordered: none -Procedures: none -Interventions: none -Shared decision making / Disposition: Patient is afebrile. Normal vital signs. Rash does not seem to be bothering her at this point. Patient inst
[2022-10-06 01:01] VITALS: BP 151/58; PULSE 67; RESP 12; O2SAT 100
--- NOTE | 2022-10-06 01:54 | PC.NURSE ---
Called lab and spoke to Vicenta about the BMP being done. Per Vicenta it should be done in 10 more minutes
[2022-10-06 01:57] LABS: Anion Gap 14 mmol/L (8-16); Blood Urea Nitrogen 54 mg/dL (7-17); Calcium 8.4 mg/dL (8.4-10.2); Carbon Dioxide 24 mmol/L (22-30); Chloride 97 mmol/L (98-107); Estimated CRCL calculation 7 ml/min; Estimated Glomerular Filt Rate 8; Glucose 111 mg/dL (65-110); Potassium 4.2 mmol/L (3.4-5.0); Sodium 135 mmol/L (137-145)
[2022-10-06 02:10] VITALS: BP 166/69; PULSE 73; RESP 23; TEMP 36.6; O2SAT 100
== END 2022-10-06 02:11 ==
PROVIDERS: Emergency Provider Emergency Medicine; PCP Nurse Practitioner Family
DX: R21 Rash and other nonspecific skin eruption (principal); F03.90 Unspecified dementia, unspecified severity, without behavioral disturbance, psychotic disturbance, mood disturbance, and anxiety; I12.0 Hypertensive chronic kidney disease with stage 5 chronic kidney disease or end stage renal disease; N18.6 End stage renal disease; Z99.2 Dependence on renal dialysis; Z79.01 Long term (current) use of anticoagulants
CPT/HCPCS: 36415; 80048; 85025; 99283

== ENCOUNTER → 2023-02-11 08:46 | Outpatient (REF) | payer MEDICARE, SELFPAY | LOC: ANHLAB 08:46 | PROVIDERS: PCP Emergency Medicine; Visit Provider Plastic Surgery | DX: C44.311 Basal cell carcinoma of skin of nose (principal) | CPT/HCPCS: 88305 ==

== ENCOUNTER 2023-03-25 03:28 | Day surgery (SDC) | payer MEDICARE, SELFPAY ==
[2023-03-21 11:35] VITALS: BMI 22.1
--- NOTE | 2023-03-21 15:30 | PC.NURSE ---
Report to the Outpatient Waiting Room, entrance under the green pavilion located off [facility], at time __1:00PM on date __03/25/23 . Planned Procedure Time: __3:00PM . Time changes happen often and if your time is changed the preop area will call you the afternoon before. - You and your visitor will be asked to self-screen and do not enter if you have any COVID symptoms. - A mask is optional within the hospital at this time. Patients may have clear liquids (water, carbonated beverages, clear teas, apple juice) until 3 hours prior to surgery with a maximum of 20 ounces. *STOP CLEAR LIQUIDS 12:00PM - No food from midnight until time of surgery. Take the following medications with a SIP of water the morning of surgery: __BUSPIRONE, DILTIAZEM DO NOT STOP ANY OF YOUR OTHER PRESCRIPTION MEDICATIONS PRIOR TO SURGERY ?EXCEPT THE FOLLOWING Medications to discontinue per physician __HOLD ELIQUIS STARTING NOW(03/21/23, 2:45PM) PER RIKY AT DR MACIEL'S OFFICE. HOLD ALL VITAMINS/SUPPLEMENTS PER ANESTHESIA 3 DAYS PRE-OP- LAST DOSE 03/21/23. Please no make-up, nail nepalese, hairspray, perfume, deodorant, or body powder the day of surgery. No jewelry (including any body piercings) or valuables the day of surgery, leave them at home. Please take a shower or bath the night before, or the morning of, surgery with an antibacterial soap. Wear comfortable, loose fitting clothing. Children are encouraged to wear pajamas. - Jewelry must be removed prior to entering the operating room. Rings and piercings that are not removed may be cut off. - The hospital will not accept responsibility for valuables. - Please leave all valuables, including medications, at home the day of surgery. If you are going home after surgery, a licensed stock car driver must drive you home. - NO public transportation without another adult if you receive anesthesia. - We recommend that an adult stay with you for 24 hours following discharge. - We also recommend that you do not drive, make important decision, drink alcoholic beverages, or take any drugs that were not prescribed by your health care provider for at least 24 hours after your discharge time. Follow any additional instructions given to you from your surgeon. If you or anyone in your household have experienced Covid symptoms in the past week, please notify your surgeon or the nurse liaison at the phone number below for possible testing. Telephone instructions given to __[facility]__and asked if any additional questions and then verbalized understanding. Patient advised to call surgeon office or pre surgery nurse liaison [phone] if any additional questions.
--- NOTE | 2023-03-24 17:38 | PM.IMHP ---
H&P: HPI History of Present Illness Date/Time: 03/24/23 17:38 Chief Complaint: right ear canal mass Narrative: plan proceed Review of Systems Review of Systems: All systems reviewed & are unremarkable except as noted in HPI and below [facility] Past Medical History Medical History Basal cell carcinoma Belching Chronic diarrhea Chronic kidney disease (CKD) Dementia Dialysis patient Hypertension Family History Family History Other Family history non-contributory Social History Social History Smoking status: Never smoker Alcohol intake: never Substance use: never Lack of Transportation: No Lack of Food: Never True Current Housing: I Have Housing Concerned About Future Housing: No Difficulty Paying Gas/Electric Bills: No Difficulty Paying for Meds: No Currently Unemployed: No Education: High School Diploma/GED Difficulty w/ Childcare or Family Care: No Living arrangements: assisted living Spiritual care concerns: No Meds Home Medications and Allergies Home Medications Medication Instructions Recorded Confirmed Type apixaban 2.5 mg tablet (Eliquis) 2.5 mg PO BID 09/05/20 03/21/23 History acetaminophen 325 mg capsule 650 mg PO Q6H PRN pain #40 caps 08/17/22 03/21/23 Rx (Tylenol) calcium acetate(phosphat bind) 667 1,334 mg PO TIDWMEAL 08/17/22 03/21/23 History mg capsule cephalexin 500 mg capsule 250 mg PO HS 08/17/22 03/21/23 History quetiapine 25 mg tablet 25 mg PO HS #90 tabs 01/02/23 03/21/23 Rx buspirone 15 mg tablet 15 mg PO TID #270 tabs 01/03/23 03/21/23 Rx mecobalamin (vitamin B12) 500 mcg 500 mcg PO DAILY #90 tabs 01/03/23 03/21/23 Rx chewable tablet trazodone 150 mg tablet 150 mg PO QHS #90 tabs 01/03/23 03/21/23 Rx vitamin E (dl, acetate) 180 mg 180 mg PO DAILY #90 caps 01/03/23 03/21/23 Rx (400 unit) capsule famotidine 40 mg tablet 40 mg PO DAILY #30 tabs 01/23/23 03/21/23 Rx zinc oxide-cod liver oil 40 % 1 applic topical QAM AND QHS PRN 01/23/23 03/21/23 Rx topical paste (Desitin) skin irritation #454 grams ergocalciferol (vitamin D2) 1,250 See Rx Instructions .Route 03/04/23 03/21/23 Rx mcg (50,000 unit) capsule (Vitamin .COMPLEX #8 caps D2) diltiazem HCl 180 mg 180 mg PO QAM 03/21/23 03/21/23 History capsule,extended release 24 hr furosemide 20 mg tablet 20 mg PO QAM 03/21/23 03/21/23 History Allergies Allergy/AdvReac Type Severity Reaction Status Date / Time clonidine Allergy Unknown Verified 03/21/23 11:29 zolpidem [From Ambien] Allergy RED Verified 03/21/23 11:29 FACE/RASH Exam Narrative: right EAC male mass Assessment and Plan Assessment and plan (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 Plan will be right-sided antonio microscopy with excisional biopsy excision of mass. Mask or LMA okay. Total operative time about 30 minutes. Risks discussed included recurrence of mass significant morbidity given the patient's age. Bleeding infection damage to any surrounding structures need for further procedures failure to resolve symptoms
--- NOTE | 2023-03-25 07:49 | WPDHPUPDATE1 ---
History and Physical Update Update Date/Time: 03/25/23 07:49 History and Physical has been reviewed, including an updated exam of the patient. There are NO changes in the patient's condition. Risks, benefits, and alternatives have been discussed and questions answered. Patient agrees to proceed with procedure.
--- NOTE | 2023-03-25 09:13 | ECG_ITS ---
Measurements Intervals [place] Rate: 63 P: TN: 0 QRS: -18 QRSD: 113 T: 92 QT: 337 QTc: 345 Interpretive Statements ATRIAL FIBRILLATION INTRAVENTRICULAR CONDUCTION DELAY LEFT VENTRICULAR HYPERTROPHY WITH ST-T CHANGE NONSPECIFIC ST & T-WAVE ABNORMALITY- ANTEROLAT/INF LEADS BASELINE ARTIFACT- II, AVR, V4-V6 ABNORMAL ECG COMPARED TO ECG 02/14/2022 11:36:05 INTRAVENTRICULAR CONDUCTION DELAY NOW PRESENT ST-T WAVE ABNORMALITY NOW PRESENT Electronically Signed On 03-25-2023 10:45:54 CREPE LAMINATOR OPERATOR by Lencho Bermudez D.O.
[2023-03-25 09:53] VITALS: BP 143/60; PULSE 75; RESP 16; TEMP 37; O2SAT 100
[2023-03-25] MEDS: ACETAMINOPHEN 500 MG TABLET 1000 MG PO (09:56)
[2023-03-25 10:27] LABS: Anion Gap 10 mmol/L (8-16); Blood Urea Nitrogen 33 mg/dL (7-17); Calcium 8.6 mg/dL (8.4-10.2); Carbon Dioxide 31 mmol/L (22-30); Chloride 97 mmol/L (98-107); Estimated CRCL calculation 7 ml/min; Estimated Glomerular Filt Rate 7; Glucose 104 mg/dL (65-110); Potassium 3.5 mmol/L (3.4-5.0); Sodium 138 mmol/L (137-145)
[2023-03-25 10:29] LABS: Prothrombin Time 13.5 Seconds (11.1-14.7)
[2023-03-25 10:30] LABS: Partial Thromboplastin Time 27.2 SECONDS (22.3-36.8)
--- NOTE | 2023-03-25 12:16 | WPDHPUPDATE1 ---
History and Physical Update Update Date/Time: 03/25/23 12:16 Right ear examined cerumen removed the cyst is now gone. Patient has cured with the use of antibiotic drops. Cancel surgery.
== END 2023-03-25 13:00 | disposition home or self-care (01) ==
PROVIDERS: Anesthesiology; PCP Emergency Medicine; Visit Provider Otolaryngology
DX: L98.9 Disorder of the skin and subcutaneous tissue, unspecified (principal); Z53.8 Procedure and treatment not carried out for other reasons; I48.91 Unspecified atrial fibrillation; I12.9 Hypertensive chronic kidney disease with stage 1 through stage 4 chronic kidney disease, or unspecified chronic kidney disease; N18.9 Chronic kidney disease, unspecified; Z99.2 Dependence on renal dialysis; F03.90 Unspecified dementia, unspecified severity, without behavioral disturbance, psychotic disturbance, mood disturbance, and anxiety; Z79.01 Long term (current) use of anticoagulants
CPT/HCPCS: 36415; 80048; 85610; 85730; 93005; 99213; A9270; G0463

== ENCOUNTER 2023-04-12 09:36 | Emergency (ER) | payer MEDICARE, SELFPAY ==
--- NOTE | ~2023-04-12 | CT_ITS ---
EXAMINATION: CT brain wo con DATE: 04/12/2023 10:46 INDICATION: Status post fall. Trauma to the back of the head. Patient on blood thinners. TECHNIQUE: Computed tomography (CT) of the head was performed without intravenous contrast. The dose- length product was 605.33 mGy-cm. Automated exposure control and iterative reconstruction technique w ere employed. COMPARISON: CT dated 12/22/2021 FINDINGS: No acute intracranial hemorrhage, infarction, mass or mass effect. No ventriculomegaly or m idline shift. Basilar cisterns are patent. There is intracranial atherosclerosis. There are scattered mild periventricular and subcortical white matter changes, most likely related to small vessel ische mariama disease (microangiopathy). No depressed skull fractures. Mild mucosal thickening of the maxillary and ethmoid sinuses. Mastoids are pneumatized. IMPRESSION: 1. No acute intracranial abnormality. Reviewed, dictated and finalized at location A. ICAL QUALITY RN
--- NOTE | ~2023-04-12 | XR_ITS ---
XR chest 1V 04/12/2023 10:51 Indication: Chest pain after fall Procedure: AP view of the chest Comparison: 12/22/2021 Findings: Moderate cardiomegaly. Chronic left basilar atelectasis. No focal pneumonia, edema or effus ion. No acute osseous abnormality. No pneumothorax. Impression: 1: No acute cardiopulmonary disease. Reviewed, dictated and finalized at location A. R BRAKE OPERATOR Impression: 1: No acute cardiopulmonary disease.
--- NOTE | ~2023-04-12 | CT_ITS ---
EXAMINATION: CT cervical spine wo con DATE: 04/12/2023 10:46 INDICATION: Neck pain after fall TECHNIQUE: Computed tomography (CT) of the cervical spine was performed without intravenous contrast. The dose-length product was 187 mGy-cm. Automated exposure control and iterative reconstruction tech nique were employed. COMPARISON: None FINDINGS: There is disc narrowing at all cervical spine levels. There is degenerative anterolisthesis at C3-4 and C4-5 with advanced multilevel uncinate and facet hypertrophy. There is degenerative ante rolisthesis at C7-T1. No evidence for perched facet. Odontoid process is normal. Craniovertebral junc tion is normal. There is carotid atherosclerosis. IMPRESSION: 1. No acute abnormality of the cervical spine. 2: Severe cervical spondylosis. Reviewed, dictated and finalized at location A. SER COTTON GINNING
[2023-04-12 09:43] VITALS: BP 174/76; PULSE 71; RESP 16; TEMP 36.9; O2SAT 97
--- NOTE | 2023-04-12 10:31 | ED.FALL ---
HPI - Fall General Chief Complaint: Fall Stated Complaint: lower back pain, witnessed GLF History of Present Illness HPI Narrative: 87-year-old female with a history of ESRD on hemodialysis, AFib chronically anticoagulated with Eliquis, dementia, hypertension reports for evaluation via EMS from [facility] or ground level fall that occurred prior to arrival. Patient's daughter/POA are bedside who provided history. States they were told that the patient was getting up from the table at breakfast, became unsteady, tried to grab a hold of her neighbors walker and fell backwards. She landed on her head and back. She did not lose consciousness. Patient is A&O x1 which is her baseline per the patient's daughter. The patient denies any pain including headache, vision changes, focal numbness or weakness, chest pain or shortness of breath, abdominal pain, upper lower extremity injury. Patient's daughter at bedside states that the patient was complaining of headache, neck pain back pain after the injury, however the patient is currently denying these complaints. She denies saddle anesthesia. She does report history of chronic bowel and bladder incontinence which is unchanged from baseline. Related Data Home Medications Medication Instructions Recorded Confirmed apixaban 2.5 mg tablet (Eliquis) 2.5 mg PO BID 09/05/20 03/27/23 calcium acetate(phosphat bind) 667 1,334 mg PO TIDWMEAL 08/17/22 03/27/23 mg capsule cephalexin 500 mg capsule 250 mg PO HS 08/17/22 03/27/23 diltiazem HCl 180 mg 180 mg PO QAM 03/21/23 03/27/23 capsule,extended release 24 hr furosemide 20 mg tablet 20 mg PO QAM 03/21/23 03/27/23 Allergies Allergy/AdvReac Type Severity Reaction Status Date / Time clonidine Allergy Unknown Verified 04/12/23 09:55 zolpidem [From Ambien] Allergy RED Verified 04/12/23 09:55 FACE/RASH Review of Systems Review of Systems: CONSTITUTIONAL: Denies fever, chills, or sweats. EYES: Denies visual changes, redness, or discharge. ENT: Denies rhinorrhea, congestion, sore throat, or otalgia. CARDIOVASCULAR: Denies chest pain, palpitations, or edema. RESPIRATORY: Denies cough or dyspnea. GASTROINTESTINAL: Denies abdominal pain, nausea, vomiting, or diarrhea. GENITOURINARY: Denies dysuria or hematuria. SKIN: Denies rash or itching. MUSCULOSKELETAL: See HPI NEUROLOGIC: Denies headache, numbness, or weakness. PSYCHIATRIC: Denies anxiety or depression. [facility] Past Medical History Medical History Basal cell carcinoma Belching Chronic diarrhea Chronic kidney disease (CKD) Dementia Dialysis patient Hypertension Family History Family History Other Family history non-contributory Social History Social History Smoking status: Never smoker Alcohol intake: never Substance use: never Lack of Transportation: No Lack of Food: Never True Current Housing: I Have Housing Concerned About Future Housing: No Difficulty Paying Gas/Electric Bills: No Difficulty Paying for Meds: No Currently Unemployed: No Education: High School Diploma/GED Difficulty w/ Childcare or Family Care: No Living arrangements: assisted living Spiritual care concerns: No Exam Narrative: GENERAL: Well-appearing, well-nourished, and in no acute distress. HEAD: Normocephalic, atraumatic. No lacerations, abrasions, hematoma or ecchymosis to the skull. No step-offs or deformities. EYES: PERRLA and EOMI. ENT: Nares clear, no rhinorrhea or epistaxis. Mucous membranes moist. NECK: No midline cervical spinous tenderness, step-offs or deformities. BACK: No thoracolumbar spinous tenderness, step-offs or deformities. CHEST: Clear to auscultation. No respiratory distress. No tenderness or ecchymosis to chest wall. HEART: Regular rate and rhythm. No mur
--- NOTE | 2023-04-12 10:32 | ECG_ITS ---
Measurements Intervals [place] Rate: 55 P: GA: 0 QRS: -13 QRSD: 98 T: 120 QT: 440 QTc: 424 Interpretive Statements ATRIAL FIBRILLATION WITH SLOW VENTRICULAR RESPONSE LEFT VENTRICULAR HYPERTROPHY WITH ST-T CHANGE CANNOT RULE OUT SEPTAL INFARCT, AGE INDETERMINATE BORDERLINE ST-T WAVE ABNORMALITY- ANTEROLAT/INF LEADS BASELINE ARTIFACT- II, V5-V6 ABNORMAL ECG COMPARED TO ECG 03/25/2023 10:28:28 HEART RATE HAS DECREASED Electronically Signed On 04-12-2023 16:06:57 AX SURVEY WORKER by Lencho Bermudez D.O.
[2023-04-12 11:17] LABS: Basophils Absolute Auto 0.1 K/mm3 (0.0-0.1); Eosinophils Absolute Auto 0.1 K/mm3 (0-0.3); Eosinophils Percent Auto 1.8 % (0-4.4); Hematocrit 33.8 % (37.0-47.0); Hemoglobin 10.6 g/dL (12.0-15.0); Immature Granulocyte Absolute 0.01 K/mm3 (0.00-0.031); Immature Granulocyte Percent A 0.2 % (0-0.5); Lymphocytes Absolute Auto 1.08 K/mm3 (0.9-3.2); Lymphocytes Percent Auto 21.9 % (18.3-44.2); Mean Corpuscular HGB Conc 31.4 g/dl (32-36); Mean Corpuscular Hemoglobin 32.3 pg (26-34); Mean Platelet Volume 9.3 fl (7.4-10.4); Monocytes Absolute Auto 0.5 K/mm3 (0.1-0.6); Monocytes Percent Auto 9.9 % (2.6-8.5); Neutrophils Absolute Auto 3.2 K/mm3 (1.3-6.7); Neutrophils Percent Auto 65.2 % (45.5-73.1); Platelet Count Result 222 k/mm3 (150-375); Red Blood Count 3.28 M/mm3 (4.2-5.4); Red Cell Distribution Width 13.2 % (11.5-14.5); White Blood Count 4.9 K/mm3 (4.5-10.0)
[2023-04-12 11:24] LABS: Appearance Urine Clear (Clear); Bacteria Urine None Seen /hpf; Bilirubin Urine Negative (Negative); Blood Urine Negative (Negative); Color Urine Yellow (Yellow); Glucose Urine UA Negative (Negative); Ketones Urine Negative (Negative); Leukocyte Esterase Ur Negative LEU/UL (Negative); Nitrate Urine Negative (Negative); Non Pathogenic Casts 0-2; Protein Urine 2+ mg/dL (Negative); RBC Urine 0-2 /hpf (0-2); Specific Grav Ur 1.008 (1.001-1.035); Squamous Epithelial Cell Urine None seen /hpf (Few); Urobilinogen Urine 0.2 mg/dL (<2.0); WBC Urine 0-5 /hpf
[2023-04-12 11:25] LABS: Add Urine Microscopic? YES
[2023-04-12 11:26] LABS: Magnesium 2.2 mg/dL (1.6-2.3); Phosphorus 3.3 mg/dL (2.5-4.5)
[2023-04-12 11:27] LABS: Alanine Aminotransferase 11 U/L (6-35); Albumin Level 3.6 g/dL (3.5-5.1); Alkaline Phosphatase 60 U/L (38-126); Anion Gap 6 mmol/L (8-16); Aspartate Amino Transferase 18 U/L (14-36); Bilirubin,Total 0.6 mg/dL (0.2-1.3); Blood Urea Nitrogen 31 mg/dL (7-17); Calcium 8.4 mg/dL (8.4-10.2); Carbon Dioxide 30 mmol/L (22-30); Chloride 103 mmol/L (98-107); Estimated Glomerular Filt Rate 9; Glucose 116 mg/dL (65-110); Potassium 3.7 mmol/L (3.4-5.0); Sodium 139 mmol/L (137-145)
[2023-04-12 13:03] VITALS: BP 153/67; PULSE 60; RESP 13; O2SAT 100
[2023-04-12] MEDS: SODIUM CHLORIDE 0.9% IV 1,000 ML 999 ML IV CONT (13:49)
[2023-04-12 13:51] VITALS: BP 186/77; PULSE 58; RESP 16; O2SAT 100
--- NOTE | 2023-04-12 14:00 | PC.NURSE ---
family concerned about giving fluids due to dialysis. JOLYNN Avina made aware. stopped fluids per Kailyn NEIL.
--- NOTE | 2023-04-12 14:05 | PC.NURSE ---
update given to yaya at [place]. call with any further information as needed [phone], yaya
== END 2023-04-12 15:44 ==
PROVIDERS: Emergency Provider Physician Assistant; PCP Emergency Medicine
DX: S09.90XA Unspecified injury of head, initial encounter (principal); I48.91 Unspecified atrial fibrillation; I12.0 Hypertensive chronic kidney disease with stage 5 chronic kidney disease or end stage renal disease; N18.6 End stage renal disease; Z99.2 Dependence on renal dialysis; Z79.01 Long term (current) use of anticoagulants; F03.90 Unspecified dementia, unspecified severity, without behavioral disturbance, psychotic disturbance, mood disturbance, and anxiety; Z85.828 Personal history of other malignant neoplasm of skin; W18.39XA Other fall on same level, initial encounter
CPT/HCPCS: 36415; 70450; 71045; 72125; 80053; 81001; 81003; 83735; 84100; 85025; 93005; 99284; J7030

== ENCOUNTER 2023-04-19 17:14 | Emergency (ER) | payer MEDICARE, SELFPAY ==
[2023-04-19 17:23] VITALS: BP 180/80; PULSE 84; RESP 16; TEMP 36.3; O2SAT 100
[2023-04-19 17:40] VITALS: BP 167/77; PULSE 73; RESP 16; TEMP 36.3; O2SAT 100
--- NOTE | 2023-04-19 17:59 | ED.GENADULT ---
HPI - General Adult General Chief complaint: Unspecified Stated complaint: bleeding from dialysis port Time Seen by Provider: 04/19/23 17:38 Source: patient and family Mode of arrival: ambulatory Limitations: dementia History of Present Illness HPI narrative: This is a 87 year old female that presents to the ER for bleeding from dialysis access site. Has fistula present in the left arm. She had dialysis yesterday and has been having trouble with it bleeding since. Her facility has had to change her bandage multiple times today. No other concerns. Related Data Home Medications Medication Instructions Recorded Confirmed apixaban 2.5 mg tablet (Eliquis) 2.5 mg PO BID 09/05/20 04/14/23 calcium acetate(phosphat bind) 667 1,334 mg PO TIDWMEAL 08/17/22 04/14/23 mg capsule cephalexin 500 mg capsule 250 mg PO HS 08/17/22 04/14/23 diltiazem HCl 180 mg 180 mg PO QAM 03/21/23 04/14/23 capsule,extended release 24 hr furosemide 20 mg tablet 20 mg PO QAM 03/21/23 04/14/23 Allergies Allergy/AdvReac Type Severity Reaction Status Date / Time clonidine Allergy Unknown Verified 04/14/23 08:59 zolpidem [From Ambien] Allergy RED Verified 04/14/23 08:59 FACE/RASH Review of Systems Review of Systems: CONSTITUTIONAL: Denies fever SKIN: Denies rash All systems reviewed & are unremarkable except as noted in HPI and below PMFSH Past Medical History Medical History Basal cell carcinoma Belching Chronic diarrhea Chronic kidney disease (CKD) Dementia Dialysis patient Hypertension Family History Family History Other Family history non-contributory Social History Social History Smoking status: Never smoker Alcohol intake: never Substance use: never Lack of Transportation: No Lack of Food: Never True Current Housing: I Have Housing Concerned About Future Housing: No Difficulty Paying Gas/Electric Bills: No Difficulty Paying for Meds: No Currently Unemployed: No Education: High School Diploma/GED Difficulty w/ Childcare or Family Care: No Living arrangements: assisted living Spiritual care concerns: No Exam Narrative: GENERAL: Well-appearing, well-nourished, and in no acute distress. HEAD: Normocephalic, atraumatic. EYES: EOMI. CHEST: Clear to auscultation. No respiratory distress. No wheezes rales or rhonchi HEART: Regular rate and rhythm. No murmur heard. Normal peripheral pulses. EXTREMITIES: Normal range of motion. No edema or erythema. SKIN: Warm, dry, no rash. NEURO: No focal deficits. Alert and oriented x3. PSYCH: Normal mood and affect Course Course Emergency Course: Patient's bleeding controlled with pressure to the area Vital Signs Vital signs: Vital Signs Temperature 97.3 F L 04/19/23 17:23 Pulse Rate 84 04/19/23 17:23 Respiratory Rate 16 04/19/23 17:23 Blood Pressure 180/80 H 04/19/23 17:23 Pulse Oximetry 100 04/19/23 17:23 Oxygen Delivery Room Air 04/19/23 17:23 Temperature 97.4 F L 04/19/23 17:40 Pulse Rate 73 04/19/23 17:40 Respiratory Rate 16 04/19/23 17:40 Blood Pressure 167/77 H 04/19/23 17:40 Pulse Oximetry 100 04/19/23 17:40 Oxygen Delivery Room Air 04/19/23 17:40 Medical Decision Making MDM Narrative Medical decision making narrative: Patient presents to the emergency department for bleeding her dialysis access site in the left arm. Her vitals are stable. She is afebrile and nontoxic appearing. No erythema or edema of the arm. Bleeding was controlled with pressure to the area. Patient bandaged. Stable for discharge back to her facility Vital Signs Vital Signs: Vital Signs Temperature 97.3 F L 04/19/23 17:23 Pulse Rate 84 04/19/23 17:23 Respiratory Rate 16 04/19/23 17:23 Blood Pressure 180/80 H 04/19/23 17:
--- NOTE | 2023-04-19 18:10 | PC.NURSE ---
Dialysis clamp removed
[2023-04-19 18:50] VITALS: BP 171/79; PULSE 79; RESP 16; TEMP 36.6; O2SAT 100
== END 2023-04-19 18:52 ==
PROVIDERS: Emergency Provider Physician Assistant; PCP Emergency Medicine
DX: T82.838A Hemorrhage due to vascular prosthetic devices, implants and grafts, initial encounter (principal); I12.0 Hypertensive chronic kidney disease with stage 5 chronic kidney disease or end stage renal disease; N18.6 End stage renal disease; Z99.2 Dependence on renal dialysis; F03.90 Unspecified dementia, unspecified severity, without behavioral disturbance, psychotic disturbance, mood disturbance, and anxiety; Z85.828 Personal history of other malignant neoplasm of skin; Y84.1 Kidney dialysis as the cause of abnormal reaction of the patient, or of later complication, without mention of misadventure at the time of the procedure
CPT/HCPCS: 99282

== ENCOUNTER 2023-06-14 21:08 | Emergency (ER) | payer MEDICARE, SELFPAY ==
[2023-06-14] VITALS (17 sets, daily range): BP systolic 136–156; BP diastolic 59–76; PULSE 60–72; RESP 15–28; TEMP 37.2; O2SAT 70–100
--- NOTE | ~2023-06-14 | CT_ITS ---
EXAMINATION: CT brain wo con DATE: 06/14/2023 22:48 INDICATION: Fall. Posterior hematoma. TECHNIQUE: Computed tomography (CT) of the head was performed without intravenous contrast. The mA wa s adjusted according to patient size. Iterative reconstruction technique was employed. Exam dose: 75 6.67 mGy-cm total exam DLP. COMPARISON: 04/12/2023 CT brain FINDINGS: There is cerebellar and central and cortical cerebral atrophy. No intracranial mass lesion or hemorrhage or cerebrovascular accident is evident. No midline shift or mass effect effect. No subdural or epidural hematoma. Posterior right parietal cephalohematoma. No coup or contrecoup intracranial injury is detected. Bilateral vertebral artery, basilar artery and bilateral carotid siphon internal carotid artery calci fications. There is nonspecific diminished attenuation of the cerebral white matter, likely due to ch ronic small vessel ischemic changes. No skull fracture or bone destruction. The paranasal sinuses and mastoid air cells are well-developed and aerated. IMPRESSION: Right posterior parietal cephalohematoma; no skull fracture or acute intracranial findin g Reviewed, dictated and finalized at Location A. Reviewed, dictated and finalized at location A. IMPRESSION: Right posterior parietal cephalohematoma; no skull fracture or acu te intracranial finding
--- NOTE | 2023-06-14 21:22 | ECG_ITS ---
Measurements Intervals [place] Rate: 70 P: [place]: 0 QRS: -18 QRSD: 96 T: 68 QT: 381 QTc: 411 Interpretive Statements ATRIAL FIBRILLATION DELAYED PRECORDIAL R/S TRANSITION LEFT VENTRICULAR HYPERTROPHY WITH ST-T CHANGE CANNOT RULE OUT SEPTAL INFARCT, AGE INDETERMINATE BORDERLINE ST-T WAVE ABNORMALITY- INF/LAT LEADS BASELINE ARTIFACT- I, II, III, AVR, AVL, AVF, V1 ABNORMAL ECG COMPARED TO ECG 04/12/2023 11:54:29 HEART RATE HAS INCREASED Electronically Signed On 06-15-2023 8:00:29 CDT by Lencho Bermudez D.O.
--- NOTE | 2023-06-14 21:23 | ED.FALL ---
HPI - Fall General Chief Complaint: Fall Stated Complaint: FLG on eliquis with loc Time Seen by Provider: 06/14/23 21:20 Source: patient and family Limitations: no limitations History of Present Illness HPI Narrative: Patient was found at the entry way; believed to be a ground level fall. Can not recall details of fall. Unclear if she had been in bed just prior or had been walking around for a bit of time before. 2 other falls recently. Unclear loss of consciousness. Denies any pain in them initially but does state that her bilateral lower legs feel achy. Her only pain complaing is a headache; has a posterior hematoma. No chest pain, difficulty breathing, abdominal pain. ESRD; Undergoes HD M/W/ and had full session yesterday. She is slightly tremulous; family states she gets this way when she is anxious/scared. Patient's shoulders are asymmetric; holds right shoulder girdle elevated inferiorly; family states this is chronic as she has a known rotator cuff tear. Related Data Home Medications Medication Instructions Recorded Confirmed apixaban 2.5 mg tablet (Eliquis) 2.5 mg PO BID 09/05/20 04/14/23 calcium acetate(phosphat bind) 667 1,334 mg PO TIDWMEAL 08/17/22 04/14/23 mg capsule cephalexin 500 mg capsule 250 mg PO HS 08/17/22 04/14/23 diltiazem HCl 180 mg 180 mg PO QAM 03/21/23 04/14/23 capsule,extended release 24 hr furosemide 20 mg tablet 20 mg PO QAM 03/21/23 04/14/23 diclofenac sodium 1 % topical gel topical 06/14/23 Allergies Allergy/AdvReac Type Severity Reaction Status Date / Time clonidine Allergy Unknown Verified 06/14/23 21:27 zolpidem [From Ambien] Allergy RED Verified 06/14/23 21:27 FACE/RASH PMFSH Past Medical History Medical History Afib Basal cell carcinoma Belching Chronic diarrhea Dementia Dialysis patient ESRD (end stage renal disease) on dialysis Hyperlipidemia Hypertension Inguinal hernia Insomnia Right rotator cuff tear Spasticity Vitamin D deficiency Family History Family History Other Family history non-contributory Social History Social History (Updated 06/14/23 @ 21:30 by Ling Duff MD) Smoking status: Never smoker Alcohol intake: never Substance use: never Lack of Transportation: No Lack of Food: Never True Current Housing: I Have Housing Concerned About Future Housing: No Difficulty Paying Gas/Electric Bills: No Difficulty Paying for Meds: No Currently Unemployed: No Education: High School Diploma/GED Difficulty w/ Childcare or Family Care: No Living arrangements: assisted living Occupation/Education: retired 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 HEAD: Posterior scalp hematoma without overlying laceration. No bleeding. EYES: Non injected, non icteric ENT: Nares clear, no rhinorrhea or epistaxis. NECK: Supple. CHEST: Clear to auscultation. No respiratory distress. HEART: Regular rate and rhythm. . ABDOMEN: Soft, nondistended. No tenderness to palpation/rigidity/guarding. EXTREMITIES: Normal range of motion. No edema. No crepitus to palpation. Pelvis stable to compression. Dialysis access in LUE with palpable thrill. No TTP of r shoulder girdle which is held inferiorly compared to left; SKIN: Warm, dry, no rash. NEURO: No focal deficits. Alert but not oriented to provide health history. Slightly tremulous. PSYCH: Normal mood and affect. Course Vital Signs Vital signs: Vital Signs Temperature 98.9 F 06/14/23 21:12 Pulse Rate 72 06/14/23 21:12 Respiratory Rate 21 H 06/14/23 21:12 Blood Pressure 156/61 H 06/14/23 21:12 Pulse Oximetry 100 06/14/23 21:12 Oxygen Delivery Room Air 06/14/23 21:12 Temperature 98.9
[2023-06-14 21:31] LABS: Basophils Percent Auto 0.7 % (0.2-1.2); Eosinophils Absolute Auto 0.1 K/mm3 (0-0.3); Eosinophils Percent Auto 2.4 % (0-4.4); Hematocrit 30.9 % (37.0-47.0); Hemoglobin 9.9 g/dL (12.0-15.0); Immature Granulocyte Absolute 0.03 K/mm3 (0.00-0.031); Immature Granulocyte Percent A 0.5 % (0-0.5); Lymphocytes Percent Auto 23.7 % (18.3-44.2); Mean Corpuscular Hemoglobin 32.1 pg (26-34); Mean Corpuscular Volume 100.3 fl (80-100); Mean Platelet Volume 9.7 fl (7.4-10.4); Monocytes Absolute Auto 0.6 K/mm3 (0.1-0.6); Monocytes Percent Auto 10.9 % (2.6-8.5); Neutrophils Absolute Auto 3.4 K/mm3 (1.3-6.7); Neutrophils Percent Auto 61.8 % (45.5-73.1); Platelet Count Result 234 k/mm3 (150-375); Red Blood Count 3.08 M/mm3 (4.2-5.4); Red Cell Distribution Width 13.4 % (11.5-14.5); White Blood Count 5.5 K/mm3 (4.5-10.0)
[2023-06-14 21:41] LABS: Alanine Aminotransferase 13 U/L (6-35); Albumin Level 3.7 g/dL (3.5-5.1); Alkaline Phosphatase 76 U/L (38-126); Anion Gap 10 mmol/L (4-12); Aspartate Amino Transferase 21 U/L (14-36); Bilirubin,Total 0.4 mg/dL (0.2-1.3); Blood Urea Nitrogen 42 mg/dL (7-17); Calcium 8.8 mg/dL (8.4-10.2); Carbon Dioxide 26 mmol/L (22-30); Chloride 98 mmol/L (98-107); Estimated CRCL calculation 7 ml/min; Estimated Glomerular Filt Rate 8; Glucose 144 mg/dL (65-110); Potassium 3.8 mmol/L (3.4-5.0); Sodium 134 mmol/L (137-145)
[2023-06-14 21:50] LABS: Creatine Kinase 50 U/L (30-135)
[2023-06-14] MEDS: ACETAMINOPHEN 500 MG TABLET 1000 MG PO (23:39)
[2023-06-15 00:05] VITALS: PULSE 74; RESP 22; O2SAT 100
[2023-06-15 00:15] VITALS: PULSE 71; RESP 26; O2SAT 100
[2023-06-15 00:17] VITALS: BP 142/69; PULSE 69; RESP 27; O2SAT 100
[2023-06-15 00:33] VITALS: PULSE 70; RESP 19; O2SAT 99
[2023-06-15 01:13] VITALS: BP 133/82; PULSE 68; RESP 18; O2SAT 97
--- NOTE | 2023-06-15 01:16 | PC.NURSE ---
rn to rn report given to tyron chaves dunlow. no questions.
== END 2023-06-15 01:16 ==
PROVIDERS: Emergency Provider Student in an Organized Health Care Education/Training Program; PCP Emergency Medicine
DX: I48.91 Unspecified atrial fibrillation (principal); S00.03XA Contusion of scalp, initial encounter; W19.XXXA Unspecified fall, initial encounter; D53.9 Nutritional anemia, unspecified; I13.11 Hypertensive heart and chronic kidney disease without heart failure, with stage 5 chronic kidney disease, or end stage renal disease; N18.6 End stage renal disease; Z99.2 Dependence on renal dialysis; F03.90 Unspecified dementia, unspecified severity, without behavioral disturbance, psychotic disturbance, mood disturbance, and anxiety; E78.5 Hyperlipidemia, unspecified; E55.9 Vitamin D deficiency, unspecified; Z85.828 Personal history of other malignant neoplasm of skin; Z79.01 Long term (current) use of anticoagulants
CPT/HCPCS: 36415; 70450; 80053; 82550; 85025; 93005; 99284; A9270

== ENCOUNTER 2023-12-05 16:53 | Inpatient (IN) | payer MEDICARE, SELFPAY ==
[2023-12-05] VITALS (22 sets, daily range): BP systolic 129–173; BP diastolic 53–124; PULSE 65–81; RESP 15–25; TEMP 36.4–36.7; O2SAT 95–100; BMI 23.4
--- NOTE | ~2023-12-05 | XR_ITS ---
EXAMINATION: XR surgery orthopedic DATE: 12/07/2023 09:52 INDICATION: Intertrochanteric fracture of proximal left femur. TECHNIQUE: 7 intraoperative fluoroscopic views of left femur were obtained. I was not present. Fluoro scopy exposure time was 4 minutes 25 seconds. COMPARISON: Left hip radiographs 12/05/2023 FINDINGS: There is an intertrochanteric fracture of proximal femur in near-anatomic alignment status post open reduction internal fixation with antegrade intramedullary oliver, 2 femoral head/neck screws, and distal interlocking screw. There is mild left hip osteoarthritis. IMPRESSION: 1. Intertrochanteric fracture of proximal left femur status post open reduction internal fixation. 2. Mild left hip osteoarthritis. Reviewed, dictated and finalized at location A.
--- NOTE | ~2023-12-05 | XR_ITS ---
EXAMINATION: XR fluoroscopy no charge DATE: 12/07/2023 09:52 INDICATION: Left lower limb injury. TECHNIQUE: 3 intraoperative fluoroscopic views of left ankle were obtained. I was not present. Fluoro scopy exposure time was 4 minutes 25 seconds. COMPARISON: Left ankle radiographs 12/05/2023 FINDINGS: Alignment is normal. No fracture. Joint spaces are normal. IMPRESSION: 1. No fracture. Reviewed, dictated and finalized at location A. IMPRESSION: 1. No fracture.
--- NOTE | ~2023-12-05 | CT_ITS ---
Impression: CT brain wo con, CT cervical spine wo con Ordering provider: Ana Bogres PA-C History: 88 years Female with . fall . Comparison: May 28, 2023 Technique: CT of the head without contrast. Radiation reduction technique utilized.The dose-length product was 908 mGy-cm. FINDINGS: BRAIN PARENCHYMA AND CSF SPACES: Mild leukoaraiosis and diffuse cortical atrophy. Mild atheromatous d isease. The previously No midline shift, mass effect or hemorrhage. The brain parenchyma and CSF spa dwain are otherwise normal. VISUALIZED PARANASAL SINUSES: Well aerated. MASTOIDS: Well aerated. BONES: The bones appear intact. SOFT TISSUES: Visualized nasopharynx is normal. Superficial soft tissues are normal. IMPRESSION: No acute intracranial findings. CT brain wo con, CT cervical spine wo con Ordering provider: Ana Borges PA-C History: . fall . Comparison: None. Technique: CT of the cervical spine was performed without contrast. Sagittal and coronal reformatted images were also obtained and reviewed. Automated exposure control and iterative reconstruction janeth hnique were employed. The dose-length product was 140.98 mGy-cm. (accession [id number]), (accessi on [id number]) FINDINGS: VERTEBRAE: Anterolisthesis at the level of C3-C4. Retrolisthesis at the level of C5-C6 No subluxation or acute fracture. The occipital condyles are intact. DISC SPACES: Narrowing of the disc C3-C4, C4-C5, C5-C6 and C6-C7. Multilevel facet joint disease. Mul tilevel uncovertebral joint osteoarthritic changes. PARASPINOUS SOFT TISSUES: Normal. IMPRESSION: No definite acute osseous abnormality cervical spine. Anterolisthesis at the level of C3-C4. Retrolisthesis at the level of C5-C6. Multilevel degenerative disc disease. Reviewed, dictated and finalized at location A. Impression: CT brain wo con, CT cervical spine wo con Ordering provider: Ana Borges PA-C History: 88 years Female with . fall . Comparison: May 28, 2023 Technique: CT of the head without contrast. Radiation reduction technique utilized.The dose-length product was 908 mGy-cm. FINDINGS: BRAIN PARENCHYMA AND CSF SPACES: Mild leukoaraiosis and diffuse cortical atroph y. Mild atheromatous disease. The previously No midline shift, mass effect or h emorrhage. The brain parenchyma and CSF spaces are otherwise normal. VISUALIZED PARANASAL SINUSES: Well aerated. MASTOIDS: Well aerated. BONES: The bones appear intact. SOFT TISSUES: Visualized nasopharynx is normal. Superficial soft tissues are n ormal. IMPRESSION: No acute intracranial findings. CT brain wo con, CT cervical spine wo con Ordering provider: Ana Borges PA-C History: . fall . Comparison: None. Technique: CT of the cervical spine was performed without contrast. Sagittal a nd coronal reformatted images were also obtained and reviewed. Automated expos ure control and iterative reconstruction technique were employed. The dose-jacque th product was 140.98 mGy-cm. (accession [id number]), (accession [id number] [facility]) FINDINGS: VERTEBRAE: Anterolisthesis at the level of C3-C4. Retrolisthesis at the level o f C5-C6 No subluxation or acute fracture. The occipital condyles are intact. DISC SPACES: Narrowing of the disc C3-C4, C4-C5, C5-C6 and C6-C7. Multilevel fa cet joint disease. Multilevel uncovertebral joint osteoarthritic changes. PARASPINOUS SOFT TISSUES: Normal
--- NOTE | ~2023-12-05 | XR_ITS ---
XR hip LT 2V w AP pelvis Ordering provider: Ana Borges PA-C History: . FALL . Comparison: None. FINDINGS: BONES: Left intertrochanteric femoral fracture angulation seen in the area of the fracture. HIP JOINT SPACES: Normal. SACROILIAC JOINT SPACES/LUMBAR SPINE: The sacroiliac joint spaces are normal. Mild degenerative glynn es of the visualized lower lumbar spine. PUBIC SYMPHYSIS: Pubic symphysitis. SOFT TISSUES: Normal. IMPRESSION: Left intertrochanteric fracture. Reviewed, dictated and finalized at location A.
--- NOTE | ~2023-12-05 | XR_ITS ---
XR chest 1V portable Ordering provider: Luis Purcell MD History: 88 years Female with . SOB . Comparison: March 05, 2024 FINDINGS: MEDIASTINUM: The cardiac silhouette is moderately enlarged. Prominent brody LUNGS: No effusions or pneumothorax. Minimal opacification in the left lung bases noted. Pneumonia is not excluded. Follow-up advised. OTHER: No free air under the diaphragm. IMPRESSION: Minimal opacification in the left lung base suggestive of pneumonia. Follow-up advised. Reviewed, dictated and finalized at location A.
--- NOTE | ~2023-12-05 | XR_ITS ---
XR ankle LT 2V Ordering provider: Ana Borges PA-C History: . fall . Comparison: None. FINDINGS: BONES: Possible fracture in the distal fibula. Otherwise, No acute fracture or dislocation. JOINT SPACES: The ankle mortise is normal. Narrowing of the subtalar joint. SOFT TISSUES: Normal. Calcaneus spur. IMPRESSION: Possible fracture in the distal fibula. Follow-up advised. Otherwise, No acute osseous abnormality le ft ankle. Reviewed, dictated and finalized at location A. IMPRESSION: Possible fracture in the distal fibula. Follow-up advised. Otherwise, No acute osseous abnormality left ankle.
--- NOTE | ~2023-12-05 | XR_ITS ---
XR chest 1V Ordering provider: Ana Borges PA-C History: 88 years Female with . fall . Comparison: April 12, 2023 FINDINGS: MEDIASTINUM: The cardiac silhouette is moderately enlarged. Congestive brody. LUNGS: No infiltrates or pneumothorax. Blunting of the right costophrenic angle which may indicate atelectasis versus minimal effusion. OTHER: No free air under the diaphragm. Degenerative spine. IMPRESSION: Cardiomegaly with congestive brody. No acute lung lesion seen. Reviewed, dictated and finalized at location A.
--- NOTE | ~2023-12-05 | CT_ITS ---
EXAMINATION:CT diagnostic chest wo con DATE: 12/08/2023 14:25 INDICATION: Sepsis. TECHNIQUE: Computed tomography (CT) of the chest was performed without intravenous contrast. Automate d exposure control and iterative reconstruction technique were employed. The dose-length product (DLP ) was 167.24 mGy-cm. COMPARISON: CT abdomen and pelvis 12/22/2021 FINDINGS: The lungs demonstrate mild atelectasis. A calcified right lung nodule and calcified right h ilar and mediastinal lymph nodes are consistent with old granulomatous disease. There is a small righ t pleural effusion. Cardiomegaly is noted. There are coronary artery calcifications. There is a moder ate-sized pericardial effusion. There are changes of cholecystectomy. There are cysts in the kidneys measuring up to 2.8 cm on the left. There are stones in the kidneys measuring up to 7 mm on the right . There is moderate thoracic spondylosis. IMPRESSION: 1. Small right pleural effusion. 2. Moderate-sized pericardial effusion. Reviewed, dictated and finalized at location A.
--- NOTE | ~2023-12-05 | XR_ITS ---
XR ankle RT 2V Ordering provider: Ana Borges PA-C History: . fall . Comparison: None. FINDINGS: BONES: No acute fracture or dislocation. JOINT SPACES: Normal. SOFT TISSUES: Soft tissue swelling over the lateral malleolus. Calcaneal spur. IMPRESSION: No definite acute osseous abnormality of the right ankle. Reviewed, dictated and finalized at location A.
--- NOTE | 2023-12-05 18:13 | ECG_ITS ---
Test Date: 2023-12-05 19:37:28 Measurements Intervals [place] Rate: 80 P: 0 [place]: 0 QRS: -42 QRSD: 117 T: 102 QT: 416 QTc: 480 Interpretive Statements ATRIAL FIBRILLATION LEFT AXIS DEVIATION INTRAVENTRICULAR CONDUCTION DELAY LEFT VENTRICULAR HYPERTROPHY WITH ST-T CHANGE MINIMAL Q WAVES- HIGH LATERAL LEADS CANNOT R/O SEPTAL INFARCT, AGE INDETERMINATE BASELINE ARTIFACT- I, II, III, AVR, AVL, AVF, V1 ABNORMAL ECG No previous ECG available for comparison Electronically Signed On 12-06-2023 08:07:31 CDT by Lencho Bermudez D.O.
--- NOTE | 2023-12-05 18:13 | ED.FALL ---
HPI - Fall General Chief Complaint: Fall <Ana Borges PA-C - Last Filed: 12/05/23 20:42> Stated Complaint: fall - hip injury <Ana Borges PA-C - Last Filed: 12/05/23 20:42> Time Seen by Provider: 12/05/23 17:04 <Ana Borges PA-C - Last Filed: 12/05/23 20:42> History of Present Illness HPI Narrative: 88-year-old female with history of AFib chronically anticoagulated on Eliquis, ESRD on M// dialysis schedule, hypertension and dementia presents to the ED via EMS from [facility] with daughters at bedside for a fall. Per alf the patient was going to the restroom when she fell. Staff heard the fall and came into the bathroom immediately. No LOC. Staff found the patient with her pants around her knees. The patient is complaining of pain to her left hip. The daughter state that she is normally able to ambulate without assistance but has not been able to since the fall. She is also reacted to palpation over ankles, however patient's daughter states this is not abnormal for her and that her legs are normally sensitive. Patient's daughter does note that she is normally A&O 1 at baseline, however currently she is A&O x 0. The daughter states that she can become more confused when she is anxious. The patient also presents with a skin avulsion to her left elbow with overlying Steri-Strips. Patient's daughter states she is up-to-date on tetanus. Pt did go to dialysis today at [facility]. She is normally able to ambulate independently and without assistance. <Ana Borges PA-C - Last Filed: 12/05/23 20:42> Related Data Home Medications: Home Medications Medication Instructions Recorded Confirmed apixaban 2.5 mg tablet (Eliquis) 2.5 mg PO BID 09/05/20 10/30/23 calcium acetate(phosphat bind) 667 1,334 mg PO TIDWMEAL 08/17/22 10/30/23 mg capsule cephalexin 500 mg capsule 250 mg PO HS 08/17/22 10/30/23 diltiazem HCl 180 mg 180 mg PO QAM 03/21/23 10/30/23 capsule,extended release 24 hr furosemide 20 mg tablet 20 mg PO QAM 03/21/23 10/30/23 diclofenac sodium 1 % topical gel topical 06/14/23 10/30/23 <Ana Borges PA-C - Last Filed: 12/05/23 20:42> Allergies/Adverse Reactions: Allergies Allergy/AdvReac Type Severity Reaction Status Date / Time clonidine Allergy Unknown Verified 12/05/23 17:11 zolpidem [From Ambien] Allergy RED Verified 12/05/23 17:11 FACE/RASH <Ana Borges PA-C - Last Filed: 12/05/23 20:42> Review of Systems Review of Systems: All systems reviewed & are unremarkable except as noted in HPI and below <Ana Borges PA-C - Last Filed: 12/05/23 20:42> PMFSH Past Medical History Medical History: Medical History Afib Basal cell carcinoma Belching Chronic diarrhea Dementia Dialysis patient ESRD (end stage renal disease) on dialysis Hyperlipidemia Hypertension Inguinal hernia Insomnia Right rotator cuff tear Spasticity Vitamin D deficiency <Ana Borges PA-C - Last Filed: 12/05/23 20:42> Family History Family History: Family History Other Family history non-contributory <Ana Borges PA-C - Last Filed: 12/05/23 20:42> Social History Social History: Social History Smoking status: Never smoker Alcohol intake: never Substance use: never Lack of Transportation: No Lack of Food: Never True Current Housing: I Have Housing Concerned About Future Housing: No Difficulty Paying Gas/Electric Bills: No Difficulty Paying for Meds: No Currently Unemployed: No Education: High School Diploma/GED Difficulty w/ Childcare or Family Care: No Living arrangements: assisted living Occupation/Education: retired 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
[2023-12-05] MEDS: MORPHINE SULFATE (*CRX) 2 MG/ML INJ IV PUSH ×2 (18:14→19:47)
[2023-12-05 19:04] LABS: Basophils Absolute Auto 0.1 K/mm3 (0.0-0.1); Basophils Percent Auto 0.7 % (0.2-1.2); Eosinophils Absolute Auto 0.1 K/mm3 (0-0.3); Eosinophils Percent Auto 0.7 % (0-4.4); Hematocrit 29.7 % (37.0-47.0); Hemoglobin 9.7 g/dL (12.0-15.0); Immature Granulocyte Absolute 0.05 K/mm3 (0.00-0.031); Immature Granulocyte Percent A 0.7 % (0-0.5); Lymphocytes Absolute Auto 0.82 K/mm3 (0.9-3.2); Lymphocytes Percent Auto 10.8 % (18.3-44.2); Mean Corpuscular HGB Conc 32.7 g/dl (32-36); Mean Corpuscular Hemoglobin 32.2 pg (26-34); Mean Corpuscular Volume 98.7 fl (80-100); Mean Platelet Volume 9.2 fl (7.4-10.4); Monocytes Absolute Auto 0.5 K/mm3 (0.1-0.6); Monocytes Percent Auto 7.1 % (2.6-8.5); Neutrophils Absolute Auto 6.1 K/mm3 (1.3-6.7); Platelet Count Result 216 k/mm3 (150-375); Red Blood Count 3.01 M/mm3 (4.2-5.4); Red Cell Distribution Width 13.9 % (11.5-14.5); White Blood Count 7.6 K/mm3 (4.5-10.0)
[2023-12-05 19:16] LABS: Alanine Aminotransferase 10 U/L (6-35); Albumin Level 3.9 g/dL (3.5-5.1); Alkaline Phosphatase 77 U/L (38-126); Anion Gap 10 mmol/L (4-12); Aspartate Amino Transferase 21 U/L (14-36); Bilirubin,Total 0.4 mg/dL (0.2-1.3); Blood Urea Nitrogen 15 mg/dL (7-17); Calcium 8.6 mg/dL (8.4-10.2); Carbon Dioxide 32 mmol/L (22-30); Chloride 94 mmol/L (98-107); Estimated CRCL calculation 11 ml/min; Estimated Glomerular Filt Rate 14; Glucose 149 mg/dL (65-110); Potassium 3.8 mmol/L (3.4-5.0); Sodium 136 mmol/L (137-145)
[2023-12-05 20:03] LABS: Add Urine Microscopic? YES; Appearance Urine Clear (Clear); Bacteria Urine None Seen /hpf; Bilirubin Urine Negative (Negative); Blood Urine Negative (Negative); Color Urine Yellow (Yellow); Glucose Urine UA Negative (Negative); Ketones Urine Negative (Negative); Leukocyte Esterase Ur Negative LEU/UL (Negative); Nitrate Urine Negative (Negative); Non Pathogenic Casts 0-2; Protein Urine 2+ mg/dL (Negative); RBC Urine 0-2 /hpf (0-2); Specific Grav Ur 1.008 (1.001-1.035); Squamous Epithelial Cell Urine None Seen /hpf (Few); Urobilinogen Urine 0.2 mg/dL (<2.0); WBC Urine 0-5 /hpf (0-3)
--- NOTE | 2023-12-05 20:41 | PM.IMHP ---
H&P: HPI History of Present Illness Date/Time: 12/05/23 20:41 Chief Complaint: Fall Narrative: This is an 88-year-old female with past medical history significant for dementia, atrial fibrillation, rate controlled anticoagulated, [facility]. Was brought for evaluation to the emergency room after she was found on the floor, no loss of consciousness. Preliminary workup was significant for left hip fracture Impression: CT brain wo con, CT cervical spine wo con Ordering provider: Ana Borges PA-C History: 88 years Female with . fall . Comparison: May 28, 2023 Technique: CT of the head without contrast. Radiation reduction technique utilized.The dose-length product was 908 mGy-cm. FINDINGS: BRAIN PARENCHYMA AND CSF SPACES: Mild leukoaraiosis and diffuse cortical atrophy. Mild atheromatous disease. The previously No midline shift, mass effect or hemorrhage. The brain parenchyma and CSF spaces are otherwise normal. VISUALIZED PARANASAL SINUSES: Well aerated. MASTOIDS: Well aerated. BONES: The bones appear intact. SOFT TISSUES: Visualized nasopharynx is normal. Superficial soft tissues are normal. IMPRESSION: No acute intracranial findings. XR hip LT 2V w AP pelvis Ordering provider: Ana Borges PA-C History: . FALL . Comparison: None. FINDINGS: BONES: Left intertrochanteric femoral fracture angulation seen in the area of the fracture. HIP JOINT SPACES: Normal. SACROILIAC JOINT SPACES/LUMBAR SPINE: The sacroiliac joint spaces are normal. Mild degenerative changes of the visualized lower lumbar spine. PUBIC SYMPHYSIS: Pubic symphysitis. SOFT TISSUES: Normal. IMPRESSION: Left intertrochanteric fracture. Review of Systems Review of Systems: ROS unobtainable: Yes unobtainable due to medical condition ( dementia) [facility] Past Medical History Medical History Afib Basal cell carcinoma Belching Chronic diarrhea Dementia Dialysis patient ESRD (end stage renal disease) on dialysis Hyperlipidemia Hypertension Inguinal hernia Insomnia Right rotator cuff tear Spasticity Vitamin D deficiency Family History Family History (Updated 12/05/23 @ 22:32 by Bhavana Bustamante RN) Father Cancer Mother Diabetes mellitus Social History Social History Smoking status: Never smoker Alcohol intake: never Substance use: never Substance use type: does not use Do You Feel Safe in your Home?: Yes Lack of Transportation: No Lack of Food: Never True Current Housing: I Have Housing Concerned About Future Housing: No Difficulty Paying Gas/Electric Bills: No Difficulty Paying for Meds: No Currently Unemployed: No Education: High School Diploma/GED Difficulty w/ Childcare or Family Care: No Living arrangements: assisted living Occupation/Education: retired 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 Spiritual care concerns: No Meds Home Medications and Allergies Home Medications Medication Instructions Recorded Confirmed Type apixaban 2.5 mg tablet (Eliquis) 2.5 mg PO BID 09/05/20 12/05/23 History calcium acetate(phosphat bind) 667 1,334 mg PO TIDWMEAL 08/17/22 12/05/23 History mg capsule cephalexin 500 mg capsule 250 mg PO HS 08/17/22 12/05/23 History famotidine 40 mg tablet 40 mg PO DAILY #30 tabs 01/23/23 12/05/23 Rx diltiazem HCl 180 mg 180 mg PO QAM 03/21/23 12/05/23 History capsule,extended release 24 hr furosemide 20 mg tablet 20 mg PO QAM 03/21/23 12/05/23 History diclofenac sodium 1 % topical gel 1 ea topical QID PRN arthritis 06/14/23 12/05/23 History acetaminophen 325 mg capsule 650 mg PO Q6H PRN pain #120 caps 07/01/23 12/05/23 Rx (Tylenol) quetiapine 25 mg tablet 25 mg PO HS #90 tabs 07/04/23 12/05/23 Rx cholestyramine (with
--- NOTE | 2023-12-05 21:56 | ADMGEN ---
This patient, Ambar Bustamante, was admitted to Medical Room 255-01. Patient/family oriented to hospital policies and general routines including ID bracelet, bed and alarms, visiting hours, pain management, procedures, bathroom and other care routines, personal items, smoking policy, room service/diet, and visiting hours. Information on how to activate the Rapid Response Team has been discussed. Patient/Family are encouraged to report perceived risks to care and to ask questions if they do not understand what they are told or what they should do.
[2023-12-06] MEDS: MORPHINE SULFATE (*CRX) 2 MG/ML INJ IV PUSH ×4 (03:06→16:26)
[2023-12-06 06:00] VITALS: BP 114/47; PULSE 80; RESP 18; TEMP 37.2; O2SAT 100
[2023-12-06 08:19] VITALS: O2SAT 91
[2023-12-06] MEDS: FAMOTIDINE 20 MG TABLET 40 MG PO (08:45)
[2023-12-06] MEDS: ESCITALOPRAM OXALATE 5 MG TABLET PO (08:45)
[2023-12-06] MEDS: CALCIUM ACETATE 667 MG TABLET 1334 MG PO ×3 (08:46→16:19)
[2023-12-06] MEDS: dilTIAZem HCL CD 180 MG CAP.24HR PO (08:46)
[2023-12-06] MEDS: PROCHLORPERAZINE EDISYLATE 10 MG/2 ML VIAL IV PUSH (09:54)
--- NOTE | 2023-12-06 11:04 | PM.IMPN ---
Progress Note: A&P Assessment and Plan (1) Closed intertrochanteric fracture of left femur: Qualifiers: Encounter type: initial encounter Fracture alignment: displaced Qualified Code(s): S72.142A - Displaced intertrochanteric fracture of left femur, initial encounter for closed fracture Code(s): S72.142A - Displaced intertrochanteric fracture of left femur, initial encounter for closed fracture Status: Acute Assessment and Plan: HIp Xray reviewed PRN pain control awaiting orthopedic surgery eval PT/OT (2) ESRD (end stage renal disease) on dialysis: Code(s): N18.6 - End stage renal disease; Z99.2 - Dependence on renal dialysis Status: Acute Assessment and Plan: continue hemo dialysis nephrology consult (3) Afib: Qualifiers: Atrial fibrillation type: permanent Qualified Code(s): I48.21 - Permanent atrial fibrillation Code(s): I48.91 - Unspecified atrial fibrillation Status: Acute Assessment and Plan: rate controlled and anticoagulated Continue diltiazem, eliquis on hold due to possible ORIF (4) Fall: Code(s): W19.XXXA - Unspecified fall, initial encounter Status: Acute Assessment and Plan: fall precautions PT/OT Plan DVT prophylaxis on SCDs, Eliquis on hold Subjective Date/time seen: 12/06/23 11:04 Interval history: Patient comfortable at bedside awaiting otho eval Review of Systems Review of Systems: ROS unobtainable: Yes unobtainable due to medical condition ( dementia) Exam Narrative: General: alert and comfortable, oriented to self only Eyes: EOMI, PERRLA ENNT External ears normal, Neck is supple, no masses, Respiratory systems: Clear to auscultation Cardiovascular S1, S2, normal rhythm, no murmur, rub, or gallop; no thrill or palpable murmurs on palpation. Gastrointestinal: soft, non-tender, and non-distended abdomen with no masses; BS present Skin: no rash, lesions, ulcerations, subcutaneous nodules or induration Musculoskeletal: decreased left LE rang of motion due to pain Neurologic: Alert and oriented x1 only which is baseline, non focal Objective Data Vital Signs Vital Signs: Vital Signs - 24 hr 12/05/23 16:54 12/05/23 17:15 12/05/23 17:05 Temperature 97.7 F Pulse Rate 67 67 70 Respiratory Rate 16 16 25 H Blood Pressure 157/73 H 148/60 H Pulse Oximetry 100 98 Oxygen Delivery Room Air Fraction of Inspired Oxygen 12/05/23 17:20 12/05/23 17:33 12/05/23 17:45 Temperature Pulse Rate 65 69 73 Respiratory Rate 17 19 24 H Blood Pressure Pulse Oximetry Oxygen Delivery Fraction of Inspired Oxygen 12/05/23 17:46 12/05/23 18:00 12/05/23 18:01 Temperature Pulse Rate 74 70 74 Respiratory Rate 23 H 16 15 Blood Pressure 160/124 H 156/106 H Pulse Oximetry Oxygen Delivery Fraction of Inspired Oxygen 12/05/23 18:15 12/05/23 18:59 12/05/23 19:00 Temperature Pulse Rate 74 71 74 Respiratory Rate 18 20 16 Blood Pressure 173/68 H 148/67 H Pulse Oximetry 99 Oxygen Delivery Fraction of Inspired Oxygen 12/05/23 19:01 12/05/23 19:02 12/05/23 19:15 Temperature Pulse Rate 78 66 74 Respiratory Rate 18 21 H 24 H Blood Pressure 137/63 Pulse Oximetry 96 Oxygen Delivery Fraction of Inspired Oxygen 12/05/23 19:17 12/05/23 20:16 12/05/23 20:34 Temperature Pulse Rate 77 81 73 Respiratory Rate 19 17 18 Blood Pressure 135/53 L 134/69 Pulse Oximetry 97 96 97 Oxygen Delivery Fraction of Inspired Oxygen 12/05/23 20:57 12/05/23 21:00 12/05/23 21:01 Temperature 98.1 F Pulse Rate 78 75 78 Respiratory Rate 17 17 17 Blood Pressure 129/58 L Pulse Oximetry 96 96 96 Oxygen Delivery Fraction of Inspired Oxygen 12/05/23 21:58 12/05/23 22:06 12/06/23 06:00 Temperature 97.5 F L 98.9 F Pulse Rate 77 80 Respiratory Rate 18 18 Blood Pressure 130/53 L 114/47 L Pulse O
--- NOTE | 2023-12-06 11:22 | PCPTNOTE ---
HOLD PT evaluation: 1120: awaiting ortho consult, ankle fracture
--- NOTE | 2023-12-06 11:58 | PM.CNOR ---
Assessment and Plan Assessment and plan (1) Closed intertrochanteric fracture of left femur: Qualifiers: Encounter type: initial encounter Fracture alignment: displaced Qualified Code(s): S72.142A - Displaced intertrochanteric fracture of left femur, initial encounter for closed fracture Code(s): S72.142A - Displaced intertrochanteric fracture of left femur, initial encounter for closed fracture Status: Acute Assessment and Plan: MIN IS AN 88 YO FEMALE S/P FALL AT GROUND LEVEL NOW WITH A DISPLACED LEFT INTERTROCHANTERIC FEMUR FRACTURE. I HAVE EXAMINED THE XRAYS OF THE LEFT ANKLE AND I DO NOT APPRECIATE A FRACTURE. WE WILL IMAGE THE ANKLE AGAIN UNDER FLUOROSCOPY. SHE WILL REQUIRE INSERTION OF A TROCHANTERIC FEMORAL DAMON ONCE SHE IS CLEARED BY MEDICINE. I HAVE DISCUSSED THE PROCEDURE AT LENGTH WITH THE FAMILY. SHE IS AT A HIGHER RISK THAN AVERAGE FOR A COMPLICATION DUE TO HER DIALYSIS AND ANTICOAGULATION. WE DISCUSSED THE COMPLICATIONS OF MOSTLY INFECTION AND DELAYED VS NON UNION OF THE FRACTURE AND THE NEED FOR FURTHER SURGERY, AND THE FAMILY UNDERSTANDS. HISTORY, EXAM AND RADIOGRAPHS REVIEWED WITH THE PATIENT. REFERRING PHYSICIAN RECORDS AND IMAGES REVIEWED. CONDITION, NATURE, ETIOLOGY AND COURSE OF NATURAL HISTORY REVIEWED. CONSERVATIVE AND OPERATIVE TREATMENT OPTIONS REVIEWED WELL THE RISKS AND BENEFITS OF EACH. DISCUSSED NONOPERATIVE AND OPERATIVE TREATMENT OPTIONS WITH THE PATIENT. THE PATIENT'S QUESTIONS WERE ANSWERED. THE PATIENT DESIRES OPERATIVE TREATMENT. DISCUSSED INSERTION OF LEFT TROCHANTERIC FEMORAL ROD . RISKS OF SURGERY INCLUDING BUT NOT LIMITED TO NEUROVASCULAR DAMAGE, WOUND COMPLICATIONS, BLOOD CLOT, PULMONARY EMBOLUS, STROKE, IN, ANESTHETIC RISKS UP TO AND INCLUDING WERE REVIEWED. CONTINUED PAIN AND POSSIBLE DYSFUNCTION WERE EXPLAINED. NO GUARANTEES WERE OFFERED. THE PATIENT AND FAMILY UNDERSTANDS AND WISHES TO PROCEED. WE WILL PROCEED ONCE SHE HAS BEEN CLEARED BY MEDICINE SERVICES History of Present Illness HPI Consult date: 12/06/23 Chief complaint: Left Intertrochanteric Fracture Narrative: MIN IS AN 88 YO FEMALE WHOS IS CURRENTLY IN MEMORY CARE WHO FELL ONTO HER LEFT HIP. SHE HAD PAIN AND SWELLING AND WAS BROUGHT TO [facility]. SHE WAS FOUND TO HAVE A LEFT INTERTROCHANTERIC FEMUR FRACTURE AND A POSSIBLE LEFT LATERAL MALLEOLUS FRACTURE. SHE WAS ADMITTED FOR ORTHOPEDIC CONSULT. SHE IS ALSO ON DIALYSIS AND HAS MULTIPLE MEDICAL PROBLEMS. SHE IS ALSO ON ELIQUIS. SHE HAS DEMENTIA AND IS A POOR HISTORIAN. HER FAMILY IS PRESENT FOR HISTORY TAKING. SHE DENIES ANY OTHER EXTREMITY PAIN. HISTORY, EXAM AND RADIOGRAPHS REVIEWED WITH THE PATIENT. REFERRING PHYSICIAN RECORDS AND IMAGES REVIEWED. CONDITION, NATURE, ETIOLOGY AND COURSE OF NATURAL HISTORY REVIEWED. CONSERVATIVE AND OPERATIVE TREATMENT OPTIONS REVIEWED WELL THE RISKS AND BENEFITS OF EACH. [facility] Past Medical History Medical History Afib Basal cell carcinoma Belching Chronic diarrhea Dementia Dialysis patient ESRD (end stage renal disease) on dialysis Hyperlipidemia Hypertension Inguinal hernia Insomnia Right rotator cuff tear Spasticity Vitamin D deficiency Family History Family History Father Cancer Mother Diabetes mellitus Social History Social History Smoking status: Never smoker Alcohol intake: never Substance use: never Substance use type: does not use Do You Feel Safe in your Home?: Yes Lack of Transportation: No Lack of Food: Never True Current Housing: I Have Housing Concerned About Future Housing: No Difficulty Paying Gas/Electric Bills: No Difficulty Paying for Meds: No Currently Unemployed: No Education: High School Diploma/GED Difficulty w/ Childcare or Family Care: No Living arran
--- NOTE | 2023-12-06 12:39 | PM.CNNEP ---
Assessment and Plan Assessment and plan (1) ESRD (end stage renal disease) on dialysis: Code(s): N18.6 - End stage renal disease; Z99.2 - Dependence on renal dialysis Status: Acute Assessment and Plan: the patient has end-stage renal disease. Dr. Cristina Infante takes care of her at [place]. She does not come to this hospital. The patient has been on dialysis for 8 years. Hypertension is the cause of the end-stage renal disease. She had her last treatment yesterday. Electrolytes look okay. Volume status looks okay. Will recheck labs tomorrow. She will go to surgery tomorrow and we can do her dialysis on Friday. (2) Fall: Code(s): W19.XXXA - Unspecified fall, initial encounter Status: Acute Assessment and Plan: The patient fell and this led to fracture of the left hip and also left fibula. The former is going to get operated on and the latter is getting wrapping. (3) Hypertension: Qualifiers: Hypertension type: unspecified Qualified Code(s): I10 - Essential (primary) hypertension Code(s): I10 - Essential (primary) hypertension Status: Acute Assessment and Plan: Systolic running from the 110s to 140s. She does occasionally have higher levels which are related to pain most likely. (4) Afib: Qualifiers: Atrial fibrillation type: permanent Qualified Code(s): I48.21 - Permanent atrial fibrillation Code(s): I48.91 - Unspecified atrial fibrillation Status: Acute Assessment and Plan: Heart rate is under good control. (5) Erythropoietin deficiency anemia: Code(s): D63.1 - Anemia in chronic kidney disease Status: Acute Assessment and Plan: hemoglobin is 9.7. She will get Epogen on Friday with her dialysis (6) Renal osteodystrophy: Code(s): N25.0 - Renal osteodystrophy Status: Acute Assessment and Plan: will check a phosphorus level in the morning History of Present Illness Reason for Consult Consult date: 12/06/23 Chief Complaint Chief complaint: Left Intertrochanteric Fracture History of Present Illness Narrative: Ambar is a very pleasant 88-year-old lady who has multiple medical problems including senile dementia of the Alzheimer-type in Memory Care, end-stage renal disease on dialysis for 8 years due to hypertension, chronic diarrhea, hyperlipidemia, vitamin-D deficiency, right rotator cuff tear, insomnia, inguinal hernia. The patient went to dialysis yesterday and did well during the treatment. She was discharged to her facility and unfortunately at the facility she fell and broke her left hip and her left fibula. Her lower leg is in a wrap. she has seen and he is going to take her to surgery tomorrow. The patient says she feels okay. She did receive some morphine. Family is in the room and they gave me most of the history. She cannot really give a review of systems but seems comfortable. She is due for dialysis on Friday. She usually does well. Occasionally she cramps. She does make a lot of urine and rarely has to have any fluid removed. Review of Systems Review of Systems: ROS unobtainable: Yes unobtainable due to medical condition PMFSH Past Medical History Medical History Afib Basal cell carcinoma Belching Chronic diarrhea Dementia Dialysis patient ESRD (end stage renal disease) on dialysis Hyperlipidemia Hypertension Inguinal hernia Insomnia Right rotator cuff tear Spasticity Vitamin D deficiency Family History Family History Father Cancer Mother Diabetes mellitus Social History Social History Smoking status: Never smoker Alcohol intake: never Substance use: never Substance use type: does not use Do You Feel Safe in
--- NOTE | 2023-12-06 13:09 | PCOTNOTE ---
Attempted OT evaluation; per EMR and Ortho consult pt. will have surgery to place a left femoral oliver placed once cleared medically. Will complete evaluation after surgery.
--- NOTE | 2023-12-06 13:09 | PCPTNOTE ---
received PT orders. Pt is going to be scheduled for surgery. HOLD until post op.
--- NOTE | 2023-12-06 13:30 | PCOTNOTE ---
Pt. scheduled to have surgery today. Will complete OT evaluation after surgery.
[2023-12-06 14:00] VITALS: BP 96/49; PULSE 73; RESP 16; TEMP 37.2; O2SAT 94
[2023-12-06] MEDS: SENNA/DOCUSATE SODIUM TABLET 2 TAB PO (16:19)
--- NOTE | 2023-12-06 19:34 | WPDANESEPP ---
Anes - Eval Pre Procedure Procedure: Operation Date: 12/07/23 08:00 Proposed Procedures p Intertrochanteric Nail(Left) - Earl Da Silva MD Date/Time: 12/06/23 19:34 Pre Op Diagnosis: Left Intertrochanteric Fracture Patient Data Age: 88 Gender: F Height: 1.68 m Weight: 65.9 kg Last Vital Signs Temp 37.2 C 12/06/23 14:00 Pulse 73 12/06/23 14:00 Resp 16 12/06/23 14:00 BP 96/49 L 12/06/23 14:00 Pulse Ox 94 12/06/23 14:00 O2 Del Method Room Air 12/06/23 08:46 FiO2 21 12/06/23 08:19 Allergies Allergy/AdvReac Type Severity Reaction Status Date / Time clonidine Allergy Unknown Verified 12/05/23 17:11 zolpidem [From Ambien] Allergy RED Verified 12/05/23 17:11 FACE/RASH Home Medications Medication Instructions Recorded Confirmed Type apixaban 2.5 mg tablet (Eliquis) 2.5 mg PO BID 09/05/20 12/05/23 History calcium acetate(phosphat bind) 667 1,334 mg PO TIDWMEAL 08/17/22 12/05/23 History mg capsule cephalexin 500 mg capsule 250 mg PO HS 08/17/22 12/05/23 History famotidine 40 mg tablet 40 mg PO DAILY #30 tabs 01/23/23 12/05/23 Rx diltiazem HCl 180 mg 180 mg PO QAM 03/21/23 12/05/23 History capsule,extended release 24 hr furosemide 20 mg tablet 20 mg PO QAM 03/21/23 12/05/23 History diclofenac sodium 1 % topical gel 1 ea topical QID PRN arthritis 06/14/23 12/05/23 History acetaminophen 325 mg capsule 650 mg PO Q6H PRN pain #120 caps 07/01/23 12/05/23 Rx (Tylenol) quetiapine 25 mg tablet 25 mg PO HS #90 tabs 07/04/23 12/05/23 Rx cholestyramine (with sugar) 4 gram 4 g PO .every other day #30 ea 07/16/23 12/05/23 Rx powder for susp in a packet cyanocobalamin (vitamin B-12) 500 500 mcg PO DAILY #90 tabs 10/06/23 12/05/23 Rx mcg tablet trazodone 150 mg tablet 150 mg PO QHS #90 tabs 10/06/23 12/05/23 Rx vitamin E (dl, acetate) 180 mg 180 mg PO DAILY #90 caps 10/06/23 12/05/23 Rx (400 unit) capsule escitalopram oxalate 5 mg tablet 5 mg PO DAILY #30 tabs 11/04/23 12/05/23 Rx ergocalciferol (vitamin D2) 1,250 50,000 unit PO WEEKLY 12/05/23 12/05/23 History mcg (50,000 unit) capsule (Vitamin D2) Laboratory Tests 12/05/23 12/06/23 19:51 12:26 Urine Color Yellow (Yellow) Urine Appearance Clear (Clear) Urine pH 8.0 (5.0-9.0) Ur Specific [place] 1.008 (1.001-1.035) Urine Protein 2+ H mg/dL (Negative) Urine Glucose (UA) Negative mg/dL (Negative) Urine Ketones Negative mg/dL (Negative) Ur Blood (Man) Negative (Negative) Urine Nitrate Negative (Negative) Urine Bilirubin Negative (Negative) Urine Urobilinogen 0.2 mg/dL (<2.0) Leukocyte Esterase Rfl Negative BRUCE/UL (Negative) Urine RBC 0-2 /hpf (0-2) Urine WBC 0-5 /hpf (0-3) Ur Squamous Epith Cells None seen /hpf (Few) Urine Bacteria None seen /hpf Urine Casts 0-2 Blood Type O Positive Antibody Screen Negative Patient hx anesthesia problems: other (increased confusion after anesthesia) Family hx anesthesia problems: none Results Review: All pre-operative results and documents have been reviewed as part of the pre-operative evaluation. [facility] Past Medical History Medical History (Updated 12/06/23 @ 12:49 by Bakari Saavedra MD) Afib Basal cell carcinoma Belching Chronic diarrhea Dementia Dialysis patient ESRD (end stage renal disease) on dialysis Hyperlipidemia Hypertension Inguinal hernia Insomnia Right rotator cuff tear Spasticity Vitamin D deficiency Family History Family History Father Cancer Mother Diabetes mellitus Social History Social History Smoking status: Never smoker Alcohol intake: never Substance use: never Substance use type: does not use Do You Feel Safe in your Home?: Yes Lack
[2023-12-06] MEDS: traZODone HCL 50 MG TABLET 150 MG PO (21:38)
[2023-12-06] MEDS: QUEtiapine FUMARATE 25 MG TABLET PO (21:38)
[2023-12-06 21:58] VITALS: BP 123/46; PULSE 71; RESP 18; TEMP 37.3; O2SAT 90
[2023-12-07] VITALS (17 sets, daily range): BP systolic 94–149; BP diastolic 35–85; PULSE 66–118; RESP 12–24; TEMP 36.5–37.4; O2SAT 90–100
[2023-12-07] MEDS: CHOLESTYRAMINE (W/ SUGAR) 4 GM POWD.PACK PO (01:49)
[2023-12-07] MEDS: LACTATED RINGERS 1,000 ML 75 ML IV CONT (03:44)
[2023-12-07 05:11] LABS: Basophils Percent Auto 0.4 % (0.2-1.2); Eosinophils Absolute Auto 0.1 K/mm3 (0-0.3); Hematocrit 26.3 % (37.0-47.0); Hemoglobin 8.2 g/dL (12.0-15.0); Immature Granulocyte Absolute 0.04 K/mm3 (0.00-0.031); Immature Granulocyte Percent A 0.4 % (0-0.5); Lymphocytes Absolute Auto 1.48 K/mm3 (0.9-3.2); Lymphocytes Percent Auto 16.2 % (18.3-44.2); Mean Corpuscular HGB Conc 31.2 g/dl (32-36); Mean Corpuscular Hemoglobin 31.9 pg (26-34); Mean Corpuscular Volume 102.3 fl (80-100); Mean Platelet Volume 9.5 fl (7.4-10.4); Monocytes Percent Auto 11.2 % (2.6-8.5); Neutrophils Absolute Auto 6.5 K/mm3 (1.3-6.7); Neutrophils Percent Auto 70.8 % (45.5-73.1); Platelet Count Result 172 k/mm3 (150-375); Red Blood Count 2.57 M/mm3 (4.2-5.4); Red Cell Distribution Width 14.2 % (11.5-14.5); White Blood Count 9.1 K/mm3 (4.5-10.0)
[2023-12-07 05:32] LABS: Alanine Aminotransferase 8 U/L (6-35); Albumin Level 3.4 g/dL (3.5-5.1); Alkaline Phosphatase 68 U/L (38-126); Anion Gap 8 mmol/L (4-12); Aspartate Amino Transferase 22 U/L (14-36); Bilirubin,Total 0.8 mg/dL (0.2-1.3); Blood Urea Nitrogen 30 mg/dL (7-17); Calcium 8.7 mg/dL (8.4-10.2); Carbon Dioxide 31 mmol/L (22-30); Chloride 93 mmol/L (98-107); Estimated CRCL calculation 6 ml/min; Estimated Glomerular Filt Rate 7; Glucose 90 mg/dL (65-110); Phosphorus 4.3 mg/dL (2.5-4.5); Potassium 4.2 mmol/L (3.4-5.0); Sodium 132 mmol/L (137-145)
--- NOTE | 2023-12-07 08:00 | WPDANESEPPF ---
Anes - Initial Pre Proc Eval Procedure: Operation Date: 12/07/23 08:00 Proposed Procedures p Intertrochanteric Nail(Left) - Earl Da Silva MD Date/Time: 12/07/23 08:00 Surgeon: Pankaj Valenzuela MD Pre Op Diagnosis: Left Intertrochanteric Fracture Patient Data Age: 88 Gender: F Height: 1.68 m Weight: 65.9 kg Last Vital Signs Temp 36.6 C 12/07/23 05:58 Pulse 69 12/07/23 05:58 Resp 18 12/07/23 05:58 BP 138/65 12/07/23 05:58 Pulse Ox 98 12/07/23 05:58 O2 Del Method Room Air 12/06/23 21:38 FiO2 21 12/06/23 08:19 Allergies Allergy/AdvReac Type Severity Reaction Status Date / Time clonidine Allergy Unknown Verified 12/05/23 17:11 zolpidem [From Ambien] Allergy RED Verified 12/05/23 17:11 FACE/RASH Home Medications Medication Instructions Recorded Confirmed Type apixaban 2.5 mg tablet (Eliquis) 2.5 mg PO BID 09/05/20 12/05/23 History calcium acetate(phosphat bind) 667 1,334 mg PO TIDWMEAL 08/17/22 12/05/23 History mg capsule cephalexin 500 mg capsule 250 mg PO HS 08/17/22 12/05/23 History famotidine 40 mg tablet 40 mg PO DAILY #30 tabs 01/23/23 12/05/23 Rx diltiazem HCl 180 mg 180 mg PO QAM 03/21/23 12/05/23 History capsule,extended release 24 hr furosemide 20 mg tablet 20 mg PO QAM 03/21/23 12/05/23 History diclofenac sodium 1 % topical gel 1 ea topical QID PRN arthritis 06/14/23 12/05/23 History acetaminophen 325 mg capsule 650 mg PO Q6H PRN pain #120 caps 07/01/23 12/05/23 Rx (Tylenol) quetiapine 25 mg tablet 25 mg PO HS #90 tabs 07/04/23 12/05/23 Rx cholestyramine (with sugar) 4 gram 4 g PO .every other day #30 ea 07/16/23 12/05/23 Rx powder for susp in a packet cyanocobalamin (vitamin B-12) 500 500 mcg PO DAILY #90 tabs 10/06/23 12/05/23 Rx mcg tablet trazodone 150 mg tablet 150 mg PO QHS #90 tabs 10/06/23 12/05/23 Rx vitamin E (dl, acetate) 180 mg 180 mg PO DAILY #90 caps 10/06/23 12/05/23 Rx (400 unit) capsule escitalopram oxalate 5 mg tablet 5 mg PO DAILY #30 tabs 11/04/23 12/05/23 Rx ergocalciferol (vitamin D2) 1,250 50,000 unit PO WEEKLY 12/05/23 12/05/23 History mcg (50,000 unit) capsule (Vitamin D2) Laboratory Tests 12/06/23 12/07/23 12:26 04:58 WBC 9.1 K/mm3 (4.5-10.0) RBC 2.57 L M/mm3 (4.2-5.4) Hgb 8.2 L g/dL (12.0-15.0) Hct 26.3 L % (37.0-47.0) MCV 102.3 H fl (80-100) MCH 31.9 pg (26-34) MCHC 31.2 L g/dl (32-36) RDW 14.2 % (11.5-14.5) Plt Count 172 k/mm3 (150-375) MPV 9.5 fl (7.4-10.4) Immature Gran % (Auto) 0.4 % (0-0.5) Neut % (Auto) 70.8 % (45.5-73.1) Lymph % (Auto) 16.2 L % (18.3-44.2) Henry % (Auto) 11.2 H % (2.6-8.5) Eos % (Auto) 1.0 % (0-4.4) Baso % (Auto) 0.4 % (0.2-1.2) Lymph # (Auto) 1.48 K/mm3 (0.9-3.2) Henry # (Auto) 1.0 H K/mm3 (0.1-0.6) Eos # (Auto) 0.1 K/mm3 (0-0.3) Baso # (Auto) 0.0 K/mm3 (0.0-0.1) Abs Immat Gran (auto) 0.04 H K/mm3 (0.00-0.031) Absolute Neuts (auto) 6.5 K/mm3 (1.3-6.7) Absolute Nucleated RBC 0.000 K/mm3 (0.0-0.012) Nucleated RBC % 0.0 % (0.0-0.2) Sodium 132 L mmol/L (137-145) Potassium 4.2 mmol/L (3.4-5.0) Chloride 93 L mmol/L (98-107) Carbon Dioxide 31 H mmol/L (22-30) Anion Gap 8 mmol/L (4-12) BUN 30 H D mg/dL (7-17) Creatinine 5.90 H mg/dL (0.7-1.0) Estim Creat Clear Calc 6 ml/min Estimated GFR 7 L (59 - ) Glucose 90 mg/dL (65-110) Calcium 8.7 mg/dL (8.4-10.2) Phosphorus 4.3 mg/dL (2.5-4.5) Magnesium 2.0 mg/dL (1.6-2.3) Total Bilirubin 0.8 mg/dL (0.2-1.3) AST 22 U/L (14-36) ALT 8 U/L (6-35) Alkaline Phosphatase 68 U/L (38-126) Total Protein 6.0 L g/dL (6.3-8.2) Albumin 3.4 L g/dL (3.5-5.1) Blood Type
--- NOTE | 2023-12-07 08:10 | WPDHPUPDATE1 ---
History and Physical Update Update Date/Time: 12/07/23 08:10 History and Physical has been reviewed, including an updated exam of the patient. There are NO changes in the patient's condition. Risks, benefits, and alternatives have been discussed and questions answered. Patient agrees to proceed with procedure.
[2023-12-07] MEDS: ceFAZolin 2 GM/D5W 50 ML 2 GM/50 ML BAG IVPB ×3 (08:12→23:03)
--- NOTE | 2023-12-07 09:32 | PM.PNNEP ---
Progress Note: A&P Assessment and Plan (1) ESRD (end stage renal disease) on dialysis: Code(s): N18.6 - End stage renal disease; Z99.2 - Dependence on renal dialysis Status: Acute Assessment and Plan: the patient has end-stage renal disease. Dr. Cristina Infante takes care of her at [place]. She does not come to this hospital. The patient has been on dialysis for 8 years. Hypertension is the cause of the end-stage renal disease. She is due for treatment tomorrow. Will order this. (2) Fall: Code(s): W19.XXXA - Unspecified fall, initial encounter Status: Acute Assessment and Plan: The patient fell and this led to fracture of the left hip and also left fibula. Patient is going for surgery this morning (3) Hypertension: Qualifiers: Hypertension type: unspecified Qualified Code(s): I10 - Essential (primary) hypertension Code(s): I10 - Essential (primary) hypertension Status: Acute Assessment and Plan: Systolic running in a good range. She does occasionally have higher levels which are related to pain most likely. (4) Afib: Qualifiers: Atrial fibrillation type: permanent Qualified Code(s): I48.21 - Permanent atrial fibrillation Code(s): I48.91 - Unspecified atrial fibrillation Status: Acute Assessment and Plan: Heart rate is under good control. The latest pulse is 69 (5) Erythropoietin deficiency anemia: Code(s): D63.1 - Anemia in chronic kidney disease Status: Acute Assessment and Plan: hemoglobin is 9.7. She will get Epogen on Friday with her dialysis (6) Renal osteodystrophy: Code(s): N25.0 - Renal osteodystrophy Status: Acute Assessment and Plan: phosphorus level is good Subjective Date/time seen: 12/07/23 09:32 Interval history: Blaire is feeling okay this morning. Family in the room. Patient was seen at 7:30 a.m.. She is going to go for the surgery this morning. Review of Systems Cardiovascular: Cardiovascular: Reports no additional cardiovascular complaints Respiratory: Respiratory: Reports no additional respiratory complaints Gastrointestinal: Gastrointestinal: Reports no additional gastrointestinal complaints Genitourinary: Genitourinary: Reports no additional female genitourinary complaints Exam Narrative: WDWN in NAD skin no rash head ncat lungs clear cor reg no rub abd BS+ nontender and soft ext no edema. Objective Data Vital Signs Vital Signs: Vital Signs - 24 hr 12/06/23 14:00 12/06/23 21:58 12/07/23 01:58 Temperature 98.9 F 99.1 F 98.5 F Pulse Rate 73 71 118 H Respiratory Rate 16 18 18 Blood Pressure 96/49 L 123/46 L 118/55 L Pulse Oximetry 94 90 93 Oxygen Delivery 12/06/23 21:38 12/07/23 05:58 Temperature 97.9 F Pulse Rate 69 Respiratory Rate 18 Blood Pressure 138/65 Pulse Oximetry 98 Oxygen Delivery Room Air Intake/Output Intake/Output: Intake & Output 12/04/23 12/05/23 12/06/23 12/07/23 23:59 23:59 23:59 23:59 Intake Total 0 Output Total 560 280 Balance -560 -280 Meds/Results Medications: Active Medications Generic Name Dose Route Start Last Admin Trade Name Freq PRN Reason Stop Dose Admin Acetaminophen 650 mg 12/06/23 00:39 Acetaminophen 325 Mg Tablet PO Q6H PRN Pain Rated 1-3 Calcium Acetate 1,334 mg 12/06/23 08:00 12/06/23 16:19 Calcium Acetate 667 Mg Tablet PO 1,334 mg TIDWM RENETTA Administration Cholestyramine Resin 4 gm 12/06/23 21:00 12/07/23 01:49 Cholestyramine (W/ Sugar) 4 Gm Powd.Pack PO 4 gm Q48H RENETTA Administration Diltiazem HCl 180 mg 12/06/23 09:00 12/06/23 08:46 Diltiazem Hcl Cd 180 Mg Cap.24hr PO 180 mg QAM RENETTA Administration Escitalopram Oxalate 5 mg 12/06/23 09:00 12/06/23 08:45 Escitalopram Oxalate 5 Mg Tablet PO 5 mg DAILY RENETTA Administration Fa
[2023-12-07] MEDS: TRANEXAMIC ACID 1,000 MG/10 ML AMPUL 650 MG IV PUSH (09:40)
[2023-12-07] MEDS: SODIUM CHLORIDE 0.9% IV 500 ML 30 ML IV CONT (10:00)
--- NOTE | 2023-12-07 11:35 | PCPTNOTE ---
Pt just returning from AM surgery and is still lethargic. Will return in the PM to assess ability to proceed with evaluation
--- NOTE | 2023-12-07 11:55 | PM.IMPN ---
Progress Note: A&P Assessment and Plan (1) Closed intertrochanteric fracture of left femur: Qualifiers: Encounter type: initial encounter Fracture alignment: displaced Qualified Code(s): S72.142A - Displaced intertrochanteric fracture of left femur, initial encounter for closed fracture Code(s): S72.142A - Displaced intertrochanteric fracture of left femur, initial encounter for closed fracture Status: Acute Assessment and Plan: Hip Xray reviewed PRN pain control for OR today PT/OT Ortho on board (2) ESRD (end stage renal disease) on dialysis: Code(s): N18.6 - End stage renal disease; Z99.2 - Dependence on renal dialysis Status: Acute Assessment and Plan: continue hemo dialysis nephrology following (3) Afib: Qualifiers: Atrial fibrillation type: permanent Qualified Code(s): I48.21 - Permanent atrial fibrillation Code(s): I48.91 - Unspecified atrial fibrillation Status: Acute Assessment and Plan: rate controlled and anticoagulated Continue diltiazem, eliquis on hold due to possible ORIF (4) Fall: Code(s): W19.XXXA - Unspecified fall, initial encounter Status: Acute Assessment and Plan: fall precautions PT/OT (5) Anemia: Code(s): D64.9 - Anemia, unspecified Status: Acute Assessment and Plan: Hb 8.2, from 9.7, MCV 102.3 B12, Folate and Iron profile pending monitor h and H Plan DVT prophylaxis on SCDs, Eliquis on hold Subjective Date/time seen: 12/07/23 11:55 Interval history: Patient going for OR this morning Review of Systems Review of Systems: ROS unobtainable: Yes unobtainable due to medical condition ( dementia) Exam Narrative: General: alert and comfortable, oriented to self only Eyes: EOMI, PERRLA ENNT External ears normal, Neck is supple, no masses, Respiratory systems: Clear to auscultation Cardiovascular S1, S2, normal rhythm, no murmur, rub, or gallop; no thrill or palpable murmurs on palpation. Gastrointestinal: soft, non-tender, and non-distended abdomen with no masses; BS present Skin: no rash, lesions, ulcerations, subcutaneous nodules or induration Musculoskeletal: decreased left LE rang of motion due to pain Neurologic: Alert and oriented x1 only which is baseline, non focal Const: General: comfortable, no acute distress, well developed, alert, awake and average body habitus Nutritional Appearance: average body habitus Orientation/consciousness: oriented to person HENMT: Head: normal to inspection, normocephalic and atraumatic Ears: hearing grossly normal bilaterally Face/Nose/Sinus: normal facial exam Face and sinus: normal facial exam Eyes: General: appearance normal, both eyes and all related structures Pupils: Equal, round and reactive pupils present EOM: EOMs intact bilaterally Neck: Neck: full ROM, no lymphadenopathy and no JVD Thyroid: thyroid normal Lymphatic: no lymphadenopathy noted Resp: Effort & Inspection: normal respiratory effort and able to speak in complete sentences Auscultation: clear to auscultation bilaterally Cardio: Jugular venous distension: no JVD Rate: regular rate Rhythm: regular rhythm Heart sounds: S1 normal heart sound present and S2 normal heart sound present : General: Yes deferred Skin: Rashes: no rashes Wounds: no wounds Neuro: General: oriented to person, no focal motor deficits, CN's II-XI intact bilaterally, Unable to assess gait and other ( demented) Cranial nerves: Yes CN's II-XII intact bilaterally and Yes Equal, round and reactive pupils present Cognition (Neuro): abnormal cognition ( demented) Speech: normal speech Gait exam (Neuro): Unable to assess gait Motor exam (neuro): 5/5 motor strength present throughout Extrem: General: normal to inspection, full ROM, no joint enlargement and no pedal edema Other: left leg externally rotated and shortened Objective Data Vital
[2023-12-07 12:30] LABS: Iron 25 ug/dL (37-170)
[2023-12-07 12:40] LABS: Percent Iron Saturation 12 % (20-50)
[2023-12-07] MEDS: CALCIUM ACETATE 667 MG TABLET 1334 MG PO ×2 (13:00→17:59)
[2023-12-07] MEDS: FAMOTIDINE 20 MG TABLET 40 MG PO (13:01)
[2023-12-07] MEDS: dilTIAZem HCL CD 180 MG CAP.24HR PO (13:01)
[2023-12-07] MEDS: ESCITALOPRAM OXALATE 5 MG TABLET PO (13:01)
[2023-12-07] MEDS: oxyCODONE/ACETAMINOPHEN (*CRX) 5-325 MG TABLET 1 TABLET PO ×2 (13:01→23:01)
[2023-12-07] MEDS: ONDANSETRON INJ 4 MG/2 ML VIAL IV PUSH (13:04)
[2023-12-07] MEDS: SODIUM CHLORIDE 0.9% IV 1,000 ML 125 ML IV CONT (13:12)
[2023-12-07] MEDS: DICLOFENAC SODIUM 1% 100 GM GEL (*BKC) 1 APPLIC TOPICAL (13:31)
[2023-12-07 14:00] LABS: Folic Acid 6.4 ng/mL (2.76->20); Vitamin B12 > 1000.0 pg/mL (239-931)
--- NOTE | 2023-12-07 14:02 | W.PM.PROC2 ---
Procedure Note - Detailed Date of Procedure 12/07/23 Pre-op Diagnosis Left Intertrochanteric Fracture Post-op Diagnosis Same Procedure Performed INSERTION GAMMA DAMON LEFT HIP, LEFT ANKLE EVALUATION UNDER FLUOROSCOPY Surgeon Earl Da Silva MD Anesthesia General Description of Procedure THE PATIENT WAS TAKEN TO THE OPERATING ROOM AND PLACED ON A FRACTURE TABLE AFTER GIVEN GENERAL ANESTHESIA. THE LEFT ANKLE WAS IMAGED UNDER FLUOROSCOPY AND THERE WAS NO EVIDENCE OF A LATERAL MALLEOLUS FRACTURE. NEXT, THE LEFT LOWER EXTREMITY WAS PLACED IN A TRACTION BOOT AND USING SOME TRACTION AND INTERNAL ROTATION THE INTER TROCHANTERIC FRACTURE WAS REDUCED TO ANATOMIC POSITION. NEXT THE LEFT LOWER EXTREMITY WAS PREPPED AND DRAPED IN THE STERILE FASHION. AN INCISION WAS MADE PROXIMAL TO THE TIP OF THE GREATER TROCHANTER AND DISSECTION CONTINUED TILL THE TIP OF THE GREATER TROCHANTER WAS PALPATED. A GUIDE PIN WAS PLACED DOWN THE FEMORAL CANAL AND PAST THE FRACTURE SITE. THIS WAS CHECKED ON FLUOROSCOPY AND FOUND TO BE IN GOOD POSITION. AN INITIAL REAMER WAS USED TO REAM THE FEMORAL CANAL. A 10 BY 200 MM ARTHREX DAMON WAS INSERTED TILL THE CORRECT POSITION WAS IDENTIFIED ON XRAY. A GUIDE PIN WAS INSERTED THROUGH THE FEMORAL NECK AT [address] TILL IT REACHED THE TIP OF THE SUB CHONDRAL BONE SEEN ON XRAY. AFTER REAMING, LAG SCREW WAS INSERTED MEASURING 105 MM. XRAYS SHOWED IT TO BE IN GOOD POSITION. THE LAG SCREW WAS LOCKED PROXIMALLY WITH A LOCKING MECHANISM. NEXT A DEROTATIONAL SCREW WAS PLACED PROXIMAL TO THE LAG SCREW AND WAS SHOWN TO BE IN GOOD POSITION. NEXT A DISTAL LOCKING SCREW WAS PLACED ACROSS THE DAMON AND WAS IN GOOD POSITION ON XRAY. THE TRACTION WAS RELEASED. THE WOUNDS WERE WASHED. THE DEEP FASCIA WAS REPAIRED WITH 0 VICRYL SUTURE, THE SUB CUTANEOUS LAYER WITH 2-0 VICRYL, AND THE SKIN WITH ALESSANDRA. THE WOUNDS WERE WASHED AND THEN STERILE DRESSING WAS APPLIED. PATIENT WAS EXTUBATED AND SENT TO RECOVERY ROOM. Estimated Blood Loss 150 Urine Output 140 Complications No immediate complications Condition Stable Disposition PACU
--- NOTE | 2023-12-07 14:22 | PCPTNOTE ---
Attempted to see patient. Pt unable to remain awake and follow insturction. Chart reviewed, left ankle under fluroscopy is negative for fracture. L ORIF WBAT per most recent duplicate weight bearing order.
[2023-12-07] MEDS: SENNA/DOCUSATE SODIUM TABLET 2 TAB PO (17:58)
[2023-12-07] MEDS: CEPHALEXIN 250 MG CAPSULE PO (21:57)
[2023-12-07] MEDS: APIXABAN 2.5 MG TABLET PO (21:57)
[2023-12-07] MEDS: QUEtiapine FUMARATE 25 MG TABLET PO (21:57)
[2023-12-08] VITALS (22 sets, daily range): BP systolic 90–127; BP diastolic 33–102; PULSE 67–84; RESP 16–18; TEMP 36.6–38.1; O2SAT 94–100
[2023-12-08] MEDS: SODIUM CHLORIDE 0.9% IV 1,000 ML 125 ML IV CONT ×2 (00:01→08:27)
[2023-12-08] MEDS: HYDROmorphone HCL INJ (*CRX) 1 MG/ML SYR IV PUSH ×2 (01:54→08:07)
[2023-12-08 06:02] LABS: Basophils Percent Auto 0.3 % (0.2-1.2); Eosinophils Absolute Auto 0.1 K/mm3 (0-0.3); Eosinophils Percent Auto 0.9 % (0-4.4); Immature Granulocyte Absolute 0.04 K/mm3 (0.00-0.031); Immature Granulocyte Percent A 0.5 % (0-0.5); Lymphocytes Absolute Auto 0.49 K/mm3 (0.9-3.2); Lymphocytes Percent Auto 6.2 % (18.3-44.2); Mean Corpuscular HGB Conc 31.8 g/dl (32-36); Mean Corpuscular Hemoglobin 32.8 pg (26-34); Mean Corpuscular Volume 103.1 fl (80-100); Monocytes Absolute Auto 0.8 K/mm3 (0.1-0.6); Monocytes Percent Auto 10.5 % (2.6-8.5); Neutrophils Absolute Auto 6.5 K/mm3 (1.3-6.7); Neutrophils Percent Auto 81.6 % (45.5-73.1); Platelet Count Result 138 k/mm3 (150-375); Red Blood Count 1.95 M/mm3 (4.2-5.4); Red Cell Distribution Width 14.4 % (11.5-14.5); White Blood Count 7.9 K/mm3 (4.5-10.0)
[2023-12-08 06:19] LABS: Albumin Level 2.8 g/dL (3.5-5.1); Alkaline Phosphatase 58 U/L (38-126); Anion Gap 9 mmol/L (4-12); Aspartate Amino Transferase 22 U/L (14-36); Bilirubin,Total 0.4 mg/dL (0.2-1.3); Blood Urea Nitrogen 39 mg/dL (7-17); Calcium 7.4 mg/dL (8.4-10.2); Carbon Dioxide 27 mmol/L (22-30); Chloride 96 mmol/L (98-107); Estimated CRCL calculation 5 ml/min; Estimated Glomerular Filt Rate 6; Glucose 120 mg/dL (65-110); Magnesium 1.9 mg/dL (1.6-2.3); Phosphorus 4.6 mg/dL (2.5-4.5); Potassium 4.2 mmol/L (3.4-5.0); Sodium 132 mmol/L (137-145)
[2023-12-08 06:26] LABS: Hemoglobin 6.4 g/dL (12.0-15.0)
[2023-12-08 06:27] LABS: Hematocrit 20.1 % (37.0-47.0)
[2023-12-08 06:35] LABS: Alanine Aminotransferase < 6 U/L (6-35)
[2023-12-08 06:50] LABS: Hepatitis B Surface Antigen Negative (Negative)
[2023-12-08 07:08] LABS: Hepatitis B Surface Anti Res Positive
--- NOTE | 2023-12-08 07:53 | PCPTNOTE ---
Attempted PT evaluation, pt Hemoglobin too low (pt to receive blood this date) and pt leaving for dialysis at 8 AM. Will follow
--- NOTE | 2023-12-08 08:04 | PCOTNOTE ---
Received OT orders. Pt with hemoglobin of 6.4. Will hold OT this am and wait until pt is medically stable.
[2023-12-08] MEDS: ceFAZolin 2 GM/D5W 50 ML 2 GM/50 ML BAG IVPB (08:37)
[2023-12-08 08:45] LABS: MRSA (PCR) NOT DETECTED (NOT DETECTE)
[2023-12-08] MEDS: ALBUMIN HUMAN 25% 12.5 GM/50ML 100 ML 50 GM (09:50)
--- NOTE | 2023-12-08 10:33 | P.PNNP_ITS ---
Progress Note: A&P Assessment and Plan (1) End stage renal disease: Code(s): N18.6 - End stage renal disease Status: Chronic Assessment and Plan: * HD today * continue M/W/F dialysis schedule while hospitalized * follow electrolytes, volume status, and clearance * primary ambulatory analyst = Dr. Cristina Infante (2) Closed intertrochanteric fracture of left femur: Qualifiers: Encounter type: initial encounter Fracture alignment: displaced Qualified Code(s): S72.142A - Displaced intertrochanteric fracture of left femur, initial encounter for closed fracture Code(s): S72.142A - Displaced intertrochanteric fracture of left femur, initial encounter for closed fracture Status: Acute Assessment and Plan: * as noted by admission imaging * Orthopedic Surgery following * s/p repai and gamma oliver insertion (on 12/07/23) * pain control * PT/OT as tolerated (3) Hypertension: Qualifiers: Hypertension type: unspecified Qualified Code(s): I10 - Essential (primary) hypertension Code(s): I10 - Essential (primary) hypertension Status: Chronic Assessment and Plan: * running a bit soft at this time * however, maybe a manifestation of low H/H and pain medications * follow trend of hemodynamics (4) Afib: Qualifiers: Atrial fibrillation type: permanent Qualified Code(s): I48.21 - Permanent atrial fibrillation Code(s): I48.91 - Unspecified atrial fibrillation Status: Acute Assessment and Plan: * rate control strategy * anticoagulation on hold (5) Anemia: Code(s): D64.9 - Anemia, unspecified Status: Acute Assessment and Plan: * due to ESRD and recent operative intervention * an element of iron deficiency noted by anemia studies * PRBC transfusion per protocol * IV venofer * follow trend of H/H (6) Fall: Code(s): W19.XXXA - Unspecified fall, initial encounter Status: Acute Assessment and Plan: * fall precautions * PT/OT as tolerated Will continue to follow. Subjective Date/time seen: 12/08/23 10:33 Interval history: Follow-up for end stage renal disease on hemodialysis. Chart reviewed -- assuming care from Dr. Saavedra; tolerating dialysis treatment at the time of my visit (seen on HD at 10:20AM); very sleepy/lethargic when seen with relative hypotension noted although reported just received some pain medications; low H/H noted so getting PRBC transfusion with dialysis; s/p insertion of gamma oliver in left hip for repair of hip fracture in OR yesterday and seems to have tolerated it reasonably well. Exam Narrative: General: elderly female in NAD but sleepy/lethargic at this time Heart: normal S1 and S2; no rub Lungs: clear anterioly Abdomen: soft, nontender, nondistended, positive bowel sounds Extremities: no cyanosis or clubbing; no edema Skin: warm and dry Objective Data Vital Signs Vital Signs: Vital Signs Temp Pulse Resp BP Pulse Ox O2 Del Method O2 Flow Rate 12/08/23 10:30 68 95/47 L 12/08/23 10:00 67 90/33 L 12/08/23 09:45 84 92/46 L 12/08/23 09:41 73 117/102 H 12/08/23 09:22 100.6 F H 70 18 92/48 L 95 12/08/23 09:22 0 12/08/23 10:00 99.9 F H 67 18 90/33 L 95 12/08/23 09:45 100.6 F H 73 18 117/102 H 94
--- NOTE | 2023-12-08 10:33 | PM.PNNEP ---
Progress Note: A&P Assessment and Plan (1) End stage renal disease: Code(s): N18.6 - End stage renal disease Status: Chronic Assessment and Plan: HD today continue M/W/F dialysis schedule while hospitalized follow electrolytes, volume status, and clearance primary popped corn oven attendant = Dr. Cristina Infante (2) Closed intertrochanteric fracture of left femur: Qualifiers: Encounter type: initial encounter Fracture alignment: displaced Qualified Code(s): S72.142A - Displaced intertrochanteric fracture of left femur, initial encounter for closed fracture Code(s): S72.142A - Displaced intertrochanteric fracture of left femur, initial encounter for closed fracture Status: Acute Assessment and Plan: as noted by admission imaging Orthopedic Surgery following s/p repai and gamma oliver insertion (on 12/07/23) pain control PT/OT as tolerated (3) Hypertension: Qualifiers: Hypertension type: unspecified Qualified Code(s): I10 - Essential (primary) hypertension Code(s): I10 - Essential (primary) hypertension Status: Chronic Assessment and Plan: running a bit soft at this time however, maybe a manifestation of low H/H and pain medications follow trend of hemodynamics (4) Afib: Qualifiers: Atrial fibrillation type: permanent Qualified Code(s): I48.21 - Permanent atrial fibrillation Code(s): I48.91 - Unspecified atrial fibrillation Status: Acute Assessment and Plan: rate control strategy anticoagulation on hold (5) Anemia: Code(s): D64.9 - Anemia, unspecified Status: Acute Assessment and Plan: due to ESRD and recent operative intervention an element of iron deficiency noted by anemia studies PRBC transfusion per protocol IV venofer follow trend of H/H (6) Fall: Code(s): W19.XXXA - Unspecified fall, initial encounter Status: Acute Assessment and Plan: fall precautions PT/OT as tolerated Will continue to follow. Subjective Date/time seen: 12/08/23 10:33 Interval history: Follow-up for end stage renal disease on hemodialysis. Chart reviewed -- assuming care from Dr. Saavedra; tolerating dialysis treatment at the time of my visit (seen on HD at 10:20AM); very sleepy/lethargic when seen with relative hypotension noted although reported just received some pain medications; low H/H noted so getting PRBC transfusion with dialysis; s/p insertion of gamma oliver in left hip for repair of hip fracture in OR yesterday and seems to have tolerated it reasonably well. Exam Narrative: General: elderly female in NAD but sleepy/lethargic at this time Heart: normal S1 and S2; no rub Lungs: clear anterioly Abdomen: soft, nontender, nondistended, positive bowel sounds Extremities: no cyanosis or clubbing; no edema Skin: warm and dry Objective Data Vital Signs Vital Signs: Vital Signs Temp Pulse Resp BP Pulse Ox O2 Del Method O2 Flow Rate 12/08/23 10:30 68 95/47 L 12/08/23 10:00 67 90/33 L 12/08/23 09:45 84 92/46 L 12/08/23 09:41 73 117/102 H 12/08/23 09:22 100.6 F H 70 18 92/48 L 95 12/08/23 09:22 0 12/08/23 10:00 99.9 F H 67 18 90/33 L 95 12/08/23 09:45 100.6 F H 73 18 117/102 H 94 12/08/23 06:48 98.3 F 80 18 118/65 95 12/08/23 01:53 98.4 F 74 18 119/49 L 95 12/07/23 21:30 Room Air 12/07/23 21:13 98.6 F 66 18 149/85 H 98 12/07/23 20:00 98.6 F 66 18 149/85 H 98 12/07/23 18:00 98.7 F 74 16 94/35 L 98 12/07/23 13:58 98.0 F 74 16 106/39 L 98 Intake/Output Intake/Output: Intake & Output 12/05/23 12/06/23 12/07/23 12/08/23 23:59 23:59 23:59 23:59 Intake Total 0 1170.0 1350 Output Total 560 430 50 Balance -560 740.0 1300 Meds/Results Medications: Active Medications Generic Name Dose Route Start Last Admin T
[2023-12-08 11:02] LABS: Glucose Point of Care 132 mg/dl (65-105)
--- NOTE | 2023-12-08 11:06 | PM.IMPN ---
Progress Note: A&P Assessment and Plan (1) Closed intertrochanteric fracture of left femur: Qualifiers: Encounter type: initial encounter Fracture alignment: displaced Qualified Code(s): S72.142A - Displaced intertrochanteric fracture of left femur, initial encounter for closed fracture Code(s): S72.142A - Displaced intertrochanteric fracture of left femur, initial encounter for closed fracture Status: Acute Assessment and Plan: Hip Xray reviewed PRN pain control s/p Left intramedullary nail PT/OT Ortho on board awaiting PT/OT eval for placement (2) ESRD (end stage renal disease) on dialysis: Code(s): N18.6 - End stage renal disease; Z99.2 - Dependence on renal dialysis Status: Acute Assessment and Plan: continue hemo dialysis nephrology following (3) Afib: Qualifiers: Atrial fibrillation type: permanent Qualified Code(s): I48.21 - Permanent atrial fibrillation Code(s): I48.91 - Unspecified atrial fibrillation Status: Acute Assessment and Plan: rate controlled and anticoagulated Continue diltiazem, eliquis on hold due to possible ORIF (4) Fall: Code(s): W19.XXXA - Unspecified fall, initial encounter Status: Acute Assessment and Plan: fall precautions PT/OT (5) Anemia: Code(s): D64.9 - Anemia, unspecified Status: Acute Assessment and Plan: Hb 8.2, from 9.7, MCV 102.3 B12 >1000, Folate 6.4, and Isat 12 Venofer 100mg once Occult blood stool GI consult for possible GI bleed since patient dropped from 9.7 to 6.4 this admission monitor h and H (6) Fever: Code(s): R50.9 - Fever, unspecified Status: Acute Assessment and Plan: Patient having fever this morning with T 100.6 and Blood pressure 90/33 CT chest ordered Blood,sputum and urine culture ordered MRSA pending Continue gentle rehydration Started on Cefepime and Doxycycline adjust with clinical course monitor closely on telmetry Plan DVT prophylaxis on eLIQUIS Subjective Date/time seen: 12/08/23 11:06 Interval history: Patient lethargic this morning and unable to swallow ST and dietitian consulted Hb 6.4 will receive 1 unit pRBC during dialysis S/p Intramedullary nail for left intertrochanteric fracture Review of Systems Review of Systems: ROS unobtainable: Yes unobtainable due to medical condition ( dementia) Exam Narrative: General: alert and comfortable, oriented to self only Eyes: EOMI, PERRLA ENNT External ears normal, Neck is supple, no masses, Respiratory systems: Clear to auscultation Cardiovascular S1, S2, normal rhythm, no murmur, rub, or gallop; no thrill or palpable murmurs on palpation. Gastrointestinal: soft, non-tender, and non-distended abdomen with no masses; BS present Skin: no rash, lesions, ulcerations, subcutaneous nodules or induration Musculoskeletal: decreased left LE rang of motion due to pain Neurologic: Alert and oriented x1 only which is baseline, non focal Const: General: comfortable, no acute distress, well developed, alert, awake and average body habitus Nutritional Appearance: average body habitus Orientation/consciousness: oriented to person HENMT: Head: normal to inspection, normocephalic and atraumatic Ears: hearing grossly normal bilaterally Face/Nose/Sinus: normal facial exam Face and sinus: normal facial exam Eyes: General: appearance normal, both eyes and all related structures Pupils: Equal, round and reactive pupils present EOM: EOMs intact bilaterally Neck: Neck: full ROM, no lymphadenopathy and no JVD Thyroid: thyroid normal Lymphatic: no lymphadenopathy noted Resp: Effort & Inspection: normal respiratory effort and able to speak in complete sentences Auscultation: clear to auscultation bilaterally Cardio: Jugular venous distension: no JVD Rate: regular rate Rhythm: regular rhythm Heart sounds: S1 normal heart sound p
--- NOTE | 2023-12-08 11:55 | PC.NURSE ---
This AM patient was found to be very confused and unable to follow commands. Patient was agitated and pulling and grabbing at her surgical incision. Patient given ordered IV dilaudid and was found to be less agitated but more fatigued and less responsive. Dr. Teixeira at bedside for assessment of patient and directed to change NS to 75/hr, and make NPO and add speech evaluation. Patient not able to follow commands at this time and appears to not have fully swallowed night time medication. Holding PO medications until swallow eval. Patient to dialysis around 0915 and blood started with dialysis nurse at 0945. Dialysis nurse finishing and monitoring patient's blood transfusion during dialysis.
[2023-12-08 11:56] LABS: Lactic Acid Reflex 0.8 mmol/L (0.7-2.0)
--- NOTE | 2023-12-08 11:56 | P.CDI_ITS ---
IRON DEFICIENCY ANEMIA CDI Query Clarification Request Anemia has been documented Please clarify the status of the patient's anemia, if known. Risk Factors: Gamma oliver L hip placed 12/06 Clinical Indicators: hgb on 12/04 was 9.7, 12/06: 8.2, 12/07: 6.4, iron 25, TIBC 216, Ferritin 1070 Treatment: 1 unit PRBC, x1 Iron sucrose Anemia has been documented, please specify type of anemia if known: * Acute blood loss anemia * Chronic blood loss anemia * Anemia of chronic disease (CKD,neoplasm, other) * Aplastic anemia * Dilutional anemia * Iron Deficiency anemia * Pernicious anemia * Nutritional anemia (e.g., scorbutic anemia) * Other anemia * Unknown/unable to determine
--- NOTE | 2023-12-08 11:56 | WPDCDIQUERY2 ---
CDI Query Clarification Request Anemia has been documented Please clarify the status of the patient's anemia, if known. Risk Factors: Gamma oliver L hip placed 12/06 Clinical Indicators: hgb on 12/04 was 9.7, 12/06: 8.2, 12/07: 6.4, iron 25, TIBC 216, Ferritin 1070 Treatment: 1 unit PRBC, x1 Iron sucrose Anemia has been documented, please specify type of anemia if known: Acute blood loss anemia Chronic blood loss anemia Anemia of chronic disease (CKD,neoplasm, other) Aplastic anemia Dilutional anemia Iron Deficiency anemia Pernicious anemia Nutritional anemia (e.g., scorbutic anemia) Other anemia Unknown/unable to determine
--- NOTE | 2023-12-08 12:26 | PC.NURSE ---
Per Dr. Teixeira, stop continuous fluids for now. Will reassess later and per Dr. Teixeira add gentle boluses as needed.
[2023-12-08] MEDS: EPOETIN ALFA-EPBX 10,000 UNITS/ML VIAL 10000 UNITS IV PUSH (12:37)
--- NOTE | 2023-12-08 14:48 | PCSTNOTE ---
Attempted BSE 10:10 and then again 2:30 and both times patient was awake from room in Dialysis and CT Scan. Will try again tomorrow.
[2023-12-08] MEDS: IRON SUCROSE COMPLEX 100 MG in SODIUM CHLORIDE 0.9% IV 50 ML 220 MG IVPB (14:56)
--- NOTE | 2023-12-08 14:59 | WPDANESPN ---
Anes - Prog Note Post-Op Date/Time: 12/08/23 14:59 Cardiovascular status: normal (anemia, iron infusion, dialysis) Respiratory status: normal Airway patency: baseline Mental status: other (confused, lethargic, h/o dementia) Post-Op hydration status: normal Vital Signs: Last Vital Signs Temp 37.4 C 12/08/23 13:36 Pulse 79 12/08/23 13:36 Resp 16 12/08/23 13:36 BP 103/53 L 12/08/23 13:36 Pulse Ox 95 12/08/23 13:36 O2 Del Method Room Air 12/08/23 08:00 O2 Flow Rate 0 12/08/23 09:22 FiO2 0 12/08/23 09:22 Pain Score (VAS): 05/24 I/O: Intake & Output 12/07/23 12/08/23 12/08/23 23:59 07:59 15:59 Intake Total 1050.0 1350 Output Total 10 50 700 Balance 1040.0 -50 650 Laboratory Tests 12/08/23 05:38 12/08/23 05:38 12/06/23 12/08/23 12/08/23 12:26 05:38 07:29 WBC 7.9 RBC 1.95 L Hgb 6.4 L* Hct 20.1 L* MCV 103.1 H MCH 32.8 MCHC 31.8 L RDW 14.4 Plt Count 138 L MPV 10.0 Immature Gran % (Auto) 0.5 Neut % (Auto) 81.6 H Lymph % (Auto) 6.2 L Dickson % (Auto) 10.5 H Eos % (Auto) 0.9 Baso % (Auto) 0.3 Lymph # (Auto) 0.49 L Dickson # (Auto) 0.8 H Eos # (Auto) 0.1 Baso # (Auto) 0.0 Abs Immat Gran (auto) 0.04 H Absolute Neuts (auto) 6.5 Absolute Nucleated RBC 0.000 Nucleated RBC % 0.0 Sodium 132 L Potassium 4.2 Chloride 96 L Carbon Dioxide 27 Anion Gap 9 BUN 39 H Creatinine 6.90 H Estim Creat Clear Calc 5 Estimated GFR 6 L Glucose 120 H POC Capillary Glucose Lactic Acid Calcium 7.4 L Phosphorus 4.6 H Magnesium 1.9 Total Bilirubin 0.4 AST 22 ALT < 6 L Alkaline Phosphatase 58 Total Protein 5.0 L Albumin 2.8 L Nasal MRSA (PCR) Not detected Hep Bs Antigen Negative Hep Bs Antibody Positive Blood Type O Positive Antibody Screen Negative Crossmatch See Detail 12/08/23 12/08/23 08:44 11:37 WBC RBC Hgb Hct MCV MCH MCHC RDW Plt Count MPV Immature Gran % (Auto) Neut % (Auto) Lymph % (Auto) Dickson % (Auto) Eos % (Auto) Baso % (Auto) Lymph # (Auto) Dickson # (Auto) Eos # (Auto) Baso # (Auto) Abs Immat Gran (auto) Absolute Neuts (auto) Absolute Nucleated RBC Nucleated RBC % Sodium Potassium Chloride Carbon Dioxide Anion Gap BUN Creatinine Estim Creat Clear Calc Estimated GFR Glucose POC Capillary Glucose 132 H Lactic Acid 0.8 Calcium Phosphorus Magnesium Total Bilirubin AST ALT Alkaline Phosphatase Total Protein Albumin Nasal MRSA (PCR) Hep Bs Antigen Hep Bs Antibody Blood Type Antibody Screen Crossmatch Post-procedural complaints: other Patient Feedback: Patient satisfied with anesthetic care. Other Findings: possible Post operative cognitive dysfunction. exacerbation of dementia. patient is not communicating verbally. She has been receiving IV pain medications. she had dialysis today.
[2023-12-08] MEDS: CEFEPIME 1 GM/NS 50 ML 1 GM/50 ML BAG IVPB (15:05)
--- NOTE | 2023-12-08 15:27 | PCSTNOTE ---
Please refer to the Bedside Swallow Evaluation in the EMR. Please note, silent aspiration cannot be ruled out at bedside.
--- NOTE | 2023-12-08 15:58 | PM.PNORT ---
Progress Note: A&P Assessment and Plan (1) Closed intertrochanteric fracture of left femur: Qualifiers: Encounter type: initial encounter Fracture alignment: displaced Qualified Code(s): S72.142A - Displaced intertrochanteric fracture of left femur, initial encounter for closed fracture Code(s): S72.142A - Displaced intertrochanteric fracture of left femur, initial encounter for closed fracture Status: Acute Assessment and Plan: POD #1 : INSERTION GAMMA DAMON LEFT HIP, LEFT ANKLE EVALUATION UNDER FLUOROSCOPY PT/OT to begin with improved mentation and medical stability. WBAT. Walker. HIGH FALL RISK. Pain control. Unable to take medications by mouth currently due to decreased mental status. No IV Tylenol available in hospital. Patient unable to have IV ibuprofen given renal status. Plan to HOLD narcotics to see if improvement in mentation occurs. Will plan for Tylenol suppositories. Postoperative anemia. 150 cc blood output intraoperatively per OR report. Patient received 1 unit of PRBCs during HD today. Repeat CBC. GI consulted by medicine team as well. No evidence of hematoma on thigh/leg. Concern for patient's inability to tolerate PO intake. Gentle hydration may be required. Defer to medicine and nephrology team. Failed bedside swallow study. SCDs. Incentive Spirometry Use to resume with improved mentation. Monitor Dressing. Change tomorrow. Ice Hip. Protect skin. Monitor Vitals. Monitor I/Os. (2) Closed left fibular fracture: Qualifiers: Encounter type: initial encounter Fibula location: distal Fracture morphology: unspecified fracture morphology Qualified Code(s): S82.832A - Other fracture of upper and lower end of left fibula, initial encounter for closed fracture Code(s): S82.402A - Unspecified fracture of shaft of left fibula, initial encounter for closed fracture Status: Acute Assessment and Plan: Fluoroscopic views of the left ankle which occurred intraoperatively reveal no fracture. No bruising or swelling noted today. Continue to monitor. (3) Fever: Code(s): R50.9 - Fever, unspecified Status: Acute Assessment and Plan: Chest CT reveals small right pleural effusion and moderate-sized pericardial effusion. (4) Dementia: Qualifiers: Dementia type: vascular dementia Dementia severity: unspecified severity Dementia behavioral or psychological symptom: with anxiety Qualified Code(s): F01.54 - Vascular dementia, unspecified severity, with anxiety Code(s): F03.90 - Unspecified dementia, unspecified severity, without behavioral disturbance, psychotic disturbance, mood disturbance, and anxiety Status: Acute Assessment and Plan: HOLD narcotics. (5) Dialysis patient: Code(s): Z99.2 - Dependence on renal dialysis Status: Acute Assessment and Plan: HD today. Patient failed bedside swallow study. May require gentle hydration. Defer to nephrology and/or hospitalist team. (6) Personal history of colon cancer: Code(s): Z85.038 - Personal history of other malignant neoplasm of large intestine Status: Acute Assessment and Plan: GI consulted due to anemia. Suspect possibly due to postoperative anemia given recent surgical intervention. 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 Da Silva, who agrees with current plan as indicated above. No further recommendations from Dr. Da Silva at this time. Subjective Subjective Date/Time Seen: 12/08/23 15:58 Post Op day: 1 Interval history: POD #1: INSERTION GAMMA DAMON LEFT HIP, LEFT ANKLE EVALUATION UNDER FLUOROSCOPY Patient is confused today. Returned from HD with family at bedside. Alert but unable to answer questions or talk. T
--- NOTE | 2023-12-08 16:14 | WPDGICN ---
Assessment and Plan Assessment and plan (1) Acute on chronic anemia: Code(s): D64.9 - Anemia, unspecified Status: Acute Assessment and Plan: she already has chronic anemia related to dialysis acute drop most likely from recent hip surgery, no report of overt gib- even if occult blood in stool is positive I do not recommend colonoscopy at this time. Daughters also agreeable that they prefer to monitor transfuse to keep hgb>7 will follow as needed (2) ESRD (end stage renal disease) on dialysis: Code(s): N18.6 - End stage renal disease; Z99.2 - Dependence on renal dialysis Status: Chronic Assessment and Plan: on dialysis (3) Closed intertrochanteric fracture of left femur: Qualifiers: Encounter type: initial encounter Fracture alignment: displaced Qualified Code(s): S72.142A - Displaced intertrochanteric fracture of left femur, initial encounter for closed fracture Code(s): S72.142A - Displaced intertrochanteric fracture of left femur, initial encounter for closed fracture Status: Acute Assessment and Plan: s/p surgery (4) Dementia: Qualifiers: Dementia type: vascular dementia Dementia severity: unspecified severity Dementia behavioral or psychological symptom: with anxiety Qualified Code(s): F01.54 - Vascular dementia, unspecified severity, with anxiety Code(s): F03.90 - Unspecified dementia, unspecified severity, without behavioral disturbance, psychotic disturbance, mood disturbance, and anxiety Status: Acute Assessment and Plan: she is more drowsy per daughters (5) Afib: Qualifiers: Atrial fibrillation type: permanent Qualified Code(s): I48.21 - Permanent atrial fibrillation Code(s): I48.91 - Unspecified atrial fibrillation Status: Acute GI Consult Note Consult date/time: 12/08/23 16:14 Reason for consult: anemia HPI: Ambar Bustamante is a 88 year old female with h/o colon cancer s/p partial colectomy about 10 years ago, dementia, a fib on eliquis, chronic anemia, esrd on dialysis who was admitted after she fell down with subsequent left hip fracture. She underwent surgery and then noted worsening anemia with hgb 6.4 (baseline 9-10 but she is on procrit with dialysis). No overt gib. Daughters at bedside. She is lethargic and history obtained from family and record. Review of Systems Review of Systems: ROS unobtainable: Yes unobtainable due to mental status PMFSH Past Medical History Medical History (Updated 12/08/23 @ 16:19 by Eliel Roque MD) Acute on chronic anemia Afib Basal cell carcinoma Belching Chronic diarrhea Dementia Dialysis patient ESRD (end stage renal disease) on dialysis Hyperlipidemia Hypertension Inguinal hernia Insomnia Right rotator cuff tear Spasticity Vitamin D deficiency Family History Family History Father Cancer Mother Diabetes mellitus Social History Social History Smoking status: Never smoker Alcohol intake: never Substance use: never Substance use type: does not use Do You Feel Safe in your Home?: Yes Lack of Transportation: No Lack of Food: Never True Current Housing: I Have Housing Concerned About Future Housing: No Difficulty Paying Gas/Electric Bills: No Difficulty Paying for Meds: No Currently Unemployed: No Education: High School Diploma/GED Difficulty w/ Childcare or Family Care: No Living arrangements: assisted living Occupation/Education: retired 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
[2023-12-08] MEDS: ACETAMINOPHEN 650 MG SUPPOSITORY RECTAL (18:18)
[2023-12-08] MEDS: DOXYCYCLINE 100 MG/NS 100 ML 100 MG/100 ML BAG IVPB (18:18)
[2023-12-08 18:23] LABS: Hematocrit 26.8 % (37.0-47.0); Hemoglobin 8.8 g/dL (12.0-15.0); Mean Corpuscular HGB Conc 32.8 g/dl (32-36); Mean Corpuscular Hemoglobin 31.9 pg (26-34); Mean Corpuscular Volume 97.1 fl (80-100); Mean Platelet Volume 9.8 fl (7.4-10.4); Platelet Count Result 150 k/mm3 (150-375); Red Blood Count 2.76 M/mm3 (4.2-5.4); Red Cell Distribution Width 18.2 % (11.5-14.5); White Blood Count 9.9 K/mm3 (4.5-10.0)
[2023-12-08 20:04] LABS: Glucose Point of Care 113 mg/dl (65-105)
[2023-12-09 04:00] LABS: Glucose Point of Care 102 mg/dl (65-105)
[2023-12-09] MEDS: DOXYCYCLINE 100 MG/NS 100 ML 100 MG/100 ML BAG IVPB ×2 (05:17→17:53)
[2023-12-09 05:44] LABS: Basophils Percent Auto 0.3 % (0.2-1.2); Eosinophils Absolute Auto 0.1 K/mm3 (0-0.3); Hematocrit 26.3 % (37.0-47.0); Hemoglobin 8.5 g/dL (12.0-15.0); Immature Granulocyte Absolute 0.09 K/mm3 (0.00-0.031); Immature Granulocyte Percent A 0.9 % (0-0.5); Lymphocytes Absolute Auto 0.62 K/mm3 (0.9-3.2); Lymphocytes Percent Auto 6.4 % (18.3-44.2); Mean Corpuscular HGB Conc 32.3 g/dl (32-36); Mean Corpuscular Hemoglobin 31.7 pg (26-34); Mean Corpuscular Volume 98.1 fl (80-100); Mean Platelet Volume 10.5 fl (7.4-10.4); Monocytes Absolute Auto 1.1 K/mm3 (0.1-0.6); Monocytes Percent Auto 11.1 % (2.6-8.5); Neutrophils Absolute Auto 7.8 K/mm3 (1.3-6.7); Neutrophils Percent Auto 80.3 % (45.5-73.1); Platelet Count Result 166 k/mm3 (150-375); Red Blood Count 2.68 M/mm3 (4.2-5.4); Red Cell Distribution Width 17.7 % (11.5-14.5); White Blood Count 9.7 K/mm3 (4.5-10.0)
[2023-12-09 06:00] VITALS: BP 153/71; PULSE 85; RESP 16; TEMP 36.7; O2SAT 97
[2023-12-09 06:28] LABS: Albumin Level 3.5 g/dL (3.5-5.1); Alkaline Phosphatase 73 U/L (38-126); Anion Gap 10 mmol/L (4-12); Aspartate Amino Transferase 35 U/L (14-36); Bilirubin,Total 0.9 mg/dL (0.2-1.3); Blood Urea Nitrogen 21 mg/dL (7-17); Calcium 8.5 mg/dL (8.4-10.2); Carbon Dioxide 30 mmol/L (22-30); Chloride 98 mmol/L (98-107); Estimated CRCL calculation 9 ml/min; Estimated Glomerular Filt Rate 11; Glucose 102 mg/dL (65-110); Potassium 3.8 mmol/L (3.4-5.0); Sodium 138 mmol/L (137-145)
[2023-12-09 07:00] VITALS: BP 148/65; PULSE 89; RESP 16; TEMP 36.6; O2SAT 100
[2023-12-09 07:08] LABS: Alanine Aminotransferase < 6 U/L (6-35)
[2023-12-09 09:00] VITALS: O2SAT 96
--- NOTE | 2023-12-09 09:21 | PM.PNORT ---
Progress Note: A&P Assessment and Plan (1) Closed intertrochanteric fracture of left femur: Qualifiers: Encounter type: initial encounter Fracture alignment: displaced Qualified Code(s): S72.142A - Displaced intertrochanteric fracture of left femur, initial encounter for closed fracture Code(s): S72.142A - Displaced intertrochanteric fracture of left femur, initial encounter for closed fracture Status: Acute Assessment and Plan: POD #2: INSERTION GAMMA DAMON LEFT HIP, LEFT ANKLE EVALUATION UNDER FLUOROSCOPY PT/OT to begin. WBAT. Walker. HIGH FALL RISK. Pain control. HOLD all narcotics. Improving mentation. Repeat swallow study and then possible transition back to PO Tylenol. Continue Tylenol suppository in the interim. Ice. Postoperative anemia. 150 cc blood output intraoperatively per OR report. Patient received 1 unit of PRBCs during HD on 12/07. Repeat CBC reveals significant improvement in HgB. GI consulted by medicine team for concern for GIB. Suspect anemia is related to postoperative status. Per GI, transfuse for HgB <7. No evidence of hematoma on thigh/leg. SCDs. Incentive Spirometry Use to resume with improved mentation. Monitor Dressing. Change daily. Ice Hip. Protect skin. Monitor Vitals. Monitor I/Os. Repeat Swallow Study. (2) Closed left fibular fracture: Qualifiers: Encounter type: initial encounter Fibula location: distal Fracture morphology: unspecified fracture morphology Qualified Code(s): S82.832A - Other fracture of upper and lower end of left fibula, initial encounter for closed fracture Code(s): S82.402A - Unspecified fracture of shaft of left fibula, initial encounter for closed fracture Status: Acute Assessment and Plan: Fluoroscopic views of the left ankle which occurred intraoperatively reveal no fracture. No bruising or swelling noted today. Continue to monitor. (3) Fever: Code(s): R50.9 - Fever, unspecified Status: Acute Assessment and Plan: Chest CT reveals small right pleural effusion and moderate-sized pericardial effusion. Afebrile overnight. (4) Dementia: Qualifiers: Dementia type: vascular dementia Dementia severity: unspecified severity Dementia behavioral or psychological symptom: with anxiety Qualified Code(s): F01.54 - Vascular dementia, unspecified severity, with anxiety Code(s): F03.90 - Unspecified dementia, unspecified severity, without behavioral disturbance, psychotic disturbance, mood disturbance, and anxiety Status: Acute Assessment and Plan: HOLD narcotics. Improved mentation today. (5) Dialysis patient: Code(s): Z99.2 - Dependence on renal dialysis Status: Acute Assessment and Plan: HD MWF. Patient failed bedside swallow study on 12/07. Repeat today with the hope of resuming PO intake for hydration and nutrition. (6) Personal history of colon cancer: Code(s): Z85.038 - Personal history of other malignant neoplasm of large intestine Status: Acute Assessment and Plan: GI consulted due to anemia by medicine team. Suspect possibly due to postoperative anemia given recent surgical intervention. 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 Da Silva, who agrees with current plan as indicated above. No further recommendations from Dr. Da Silva at this time. Subjective Subjective Date/Time Seen: 12/09/23 09:21 Post Op day: 2 Interval history: POD #2: INSERTION GAMMA DAMON LEFT HIP, LEFT ANKLE EVALUATION UNDER FLUOROSCOPY Significant improvement in mentation today. Able to speak. Still confused to location/situation. Review of Systems Review of Systems: All systems reviewed & are unremarkable except as noted in HPI and below
[2023-12-09 10:00] VITALS: BP 158/66; PULSE 93; RESP 16; TEMP 37.5; O2SAT 98
--- NOTE | 2023-12-09 10:51 | PCSTNOTE ---
Please refer to the Bedside Swallow Evaluation in the EMR. Please note, silent aspiration cannot be ruled out at bedside.
--- NOTE | 2023-12-09 11:33 | P.PNNP_ITS ---
Progress Note: A&P Assessment and Plan (1) End stage renal disease: Code(s): N18.6 - End stage renal disease Status: Chronic Assessment and Plan: * HD tomorrow * continue M/W/F dialysis schedule while hospitalized * follow electrolytes, volume status, and clearance * primary shank stitcher = Dr. Cristina Infante (2) Closed intertrochanteric fracture of left femur: Qualifiers: Encounter type: initial encounter Fracture alignment: displaced Qualified Code(s): S72.142A - Displaced intertrochanteric fracture of left femur, initial encounter for closed fracture Code(s): S72.142A - Displaced intertrochanteric fracture of left femur, initial encounter for closed fracture Status: Acute Assessment and Plan: * as noted by admission imaging * Orthopedic Surgery following * s/p repair and gamma oliver insertion (on 12/07/23) * pain control * PT/OT as tolerated (3) Hypertension: Qualifiers: Hypertension type: unspecified Qualified Code(s): I10 - Essential (primary) hypertension Code(s): I10 - Essential (primary) hypertension Status: Chronic Assessment and Plan: * running a bit soft at this time * however, maybe a manifestation of low H/H and pain medications * follow trend of hemodynamics (4) Afib: Qualifiers: Atrial fibrillation type: permanent Qualified Code(s): I48.21 - Permanent atrial fibrillation Code(s): I48.91 - Unspecified atrial fibrillation Status: Acute Assessment and Plan: * rate control strategy * anticoagulation on hold (5) Anemia: Code(s): D64.9 - Anemia, unspecified Status: Acute Assessment and Plan: * due to ESRD and recent operative intervention * an element of iron deficiency noted by anemia studies * PRBC transfusion per protocol * s/p IV venofer * ELOY with HD * follow trend of H/H (6) Fall: Code(s): W19.XXXA - Unspecified fall, initial encounter Status: Acute Assessment and Plan: * fall precautions * PT/OT as tolerated Will continue to follow. Subjective Date/time seen: 12/09/23 11:33 Interval history: Follow-up for end stage renal disease on hemodialysis. Tolerated dialysis yesterday with PRBC transfusion without any issue or problems but fluid removal was limited due to persistent hypotension; mentation is significantly better at the time of my visit in comparison to yesterday - she is awake and conversive; family at bedside and we discussed the situation. Exam Narrative: General: elderly female in NAD Heart: normal S1 and S2; no rub Lungs: clear anteriorly Abdomen: soft, nontender, nondistended, positive bowel sounds Extremities: no cyanosis or clubbing; no edema Skin: warm and intact Objective Data Vital Signs Vital Signs: Vital Signs Temp Pulse Resp BP Pulse Ox O2 Del Method FiO2 12/09/23 10:00 99.5 F 93 16 158/66 H 98 12/09/23 09:00 96 Room Air 21 12/09/23 08:43 Room Air 12/09/23 08:00 96 12/09/23 07:00 98 F 89 16 148/65 H 100 12/09/23 06:00 98.1 F 85 16 153/71 H 97 12/08/23 19:45 Room Air 12/08/23 23:27 97.9 F 82 16 127/54 L 100 12/08/23 18:18 99.3 F Intake/Output Intake/Output:
--- NOTE | 2023-12-09 11:33 | PM.PNNEP ---
Progress Note: A&P Assessment and Plan (1) End stage renal disease: Code(s): N18.6 - End stage renal disease Status: Chronic Assessment and Plan: HD tomorrow continue M/W/F dialysis schedule while hospitalized follow electrolytes, volume status, and clearance primary dental equipment repairer = Dr. Cristina Infante (2) Closed intertrochanteric fracture of left femur: Qualifiers: Encounter type: initial encounter Fracture alignment: displaced Qualified Code(s): S72.142A - Displaced intertrochanteric fracture of left femur, initial encounter for closed fracture Code(s): S72.142A - Displaced intertrochanteric fracture of left femur, initial encounter for closed fracture Status: Acute Assessment and Plan: as noted by admission imaging Orthopedic Surgery following s/p repair and gamma oliver insertion (on 12/07/23) pain control PT/OT as tolerated (3) Hypertension: Qualifiers: Hypertension type: unspecified Qualified Code(s): I10 - Essential (primary) hypertension Code(s): I10 - Essential (primary) hypertension Status: Chronic Assessment and Plan: running a bit soft at this time however, maybe a manifestation of low H/H and pain medications follow trend of hemodynamics (4) Afib: Qualifiers: Atrial fibrillation type: permanent Qualified Code(s): I48.21 - Permanent atrial fibrillation Code(s): I48.91 - Unspecified atrial fibrillation Status: Acute Assessment and Plan: rate control strategy anticoagulation on hold (5) Anemia: Code(s): D64.9 - Anemia, unspecified Status: Acute Assessment and Plan: due to ESRD and recent operative intervention an element of iron deficiency noted by anemia studies PRBC transfusion per protocol s/p IV venofer ELOY with HD follow trend of H/H (6) Fall: Code(s): W19.XXXA - Unspecified fall, initial encounter Status: Acute Assessment and Plan: fall precautions PT/OT as tolerated Will continue to follow. Subjective Date/time seen: 12/09/23 11:33 Interval history: Follow-up for end stage renal disease on hemodialysis. Tolerated dialysis yesterday with PRBC transfusion without any issue or problems but fluid removal was limited due to persistent hypotension; mentation is significantly better at the time of my visit in comparison to yesterday - she is awake and conversive; family at bedside and we discussed the situation. Exam Narrative: General: elderly female in NAD Heart: normal S1 and S2; no rub Lungs: clear anteriorly Abdomen: soft, nontender, nondistended, positive bowel sounds Extremities: no cyanosis or clubbing; no edema Skin: warm and intact Objective Data Vital Signs Vital Signs: Vital Signs Temp Pulse Resp BP Pulse Ox O2 Del Method FiO2 12/09/23 10:00 99.5 F 93 16 158/66 H 98 12/09/23 09:00 96 Room Air 21 12/09/23 08:43 Room Air 12/09/23 08:00 96 12/09/23 07:00 98 F 89 16 148/65 H 100 12/09/23 06:00 98.1 F 85 16 153/71 H 97 12/08/23 19:45 Room Air 12/08/23 23:27 97.9 F 82 16 127/54 L 100 12/08/23 18:18 99.3 F Intake/Output Intake/Output: Intake & Output 12/06/23 12/07/23 12/08/23 12/09/23 23:59 23:59 23:59 23:59 Intake Total 0 1170.0 1500 340 Output Total 560 430 750 0 Balance -560 740.0 750 340 Meds/Results Medications: Active Medications Generic Name Dose Route Start Last Admin Trade Name Seanq PRN Reason Stop Dose Admin Acetaminophen 500 mg 12/07/23 11:28 12/09/23 12:35 Acetaminophen 500 Mg Tablet PO 500 mg Q6H PRN Administration Pain Rated 1-3 Acetaminophen 650 mg 12/08/23 16:11 12/08/23 18:18 Acetaminophen 650 Mg Suppository RECTAL 650 mg Q6H PRN Administration Mild Pain (1-3) or Fever Apixaban 2.5 mg 12/07/23 21:00 12/09/23 12:01 Apixaban 2
[2023-12-09] MEDS: ACETAMINOPHEN 500 MG TABLET PO ×2 (12:35→18:05)
[2023-12-09] MEDS: ESCITALOPRAM OXALATE 5 MG TABLET PO (12:38)
[2023-12-09] MEDS: FUROSEMIDE 20 MG TABLET PO (13:06)
[2023-12-09] MEDS: dilTIAZem HCL CD 180 MG CAP.24HR PO (13:06)
[2023-12-09 14:00] VITALS: BP 166/68; PULSE 91; RESP 16; TEMP 36.6; O2SAT 95
--- NOTE | 2023-12-09 14:39 | WPDPN ---
Progress Note: A&P Assessment and Plan (1) Closed intertrochanteric fracture of left femur: Qualifiers: Encounter type: initial encounter Fracture alignment: displaced Qualified Code(s): S72.142A - Displaced intertrochanteric fracture of left femur, initial encounter for closed fracture Code(s): S72.142A - Displaced intertrochanteric fracture of left femur, initial encounter for closed fracture Status: Acute Assessment and Plan: Hip Xray reviewed PRN pain control s/p Left intramedullary nail PT/OT Ortho on board awaiting PT/OT eval for placement (2) ESRD (end stage renal disease) on dialysis: Code(s): N18.6 - End stage renal disease; Z99.2 - Dependence on renal dialysis Status: Chronic Assessment and Plan: continue hemo dialysis nephrology following (3) Afib: Qualifiers: Atrial fibrillation type: permanent Qualified Code(s): I48.21 - Permanent atrial fibrillation Code(s): I48.91 - Unspecified atrial fibrillation Status: Acute Assessment and Plan: rate controlled and anticoagulated Continue diltiazem, eliquis on hold due to possible ORIF (4) Fall: Code(s): W19.XXXA - Unspecified fall, initial encounter Status: Acute Assessment and Plan: fall precautions PT/OT (5) Anemia: Code(s): D64.9 - Anemia, unspecified Status: Acute Assessment and Plan: Hb 8.2, from 9.7, MCV 102.3 B12 >1000, Folate 6.4, and Isat 12 Venofer 100mg once Occult blood stool GI consult for possible GI bleed since patient dropped from 9.7 to 6.4 this admission monitor h and H (6) Fever: Code(s): R50.9 - Fever, unspecified Status: Acute Assessment and Plan: Patient having fever this morning with T 100.6 and Blood pressure 90/33 CT chest ordered Blood,sputum and urine culture ordered MRSA pending Continue gentle rehydration Started on Cefepime and Doxycycline adjust with clinical course monitor closely on telmetry Plan patient with dementia and ESRD on HD, had a fall and resulting in fracture for left hip s/p ORIF POD #3, patient clinical symptom have improved and seen by her orthopedic, patient is ready to discharge to rehab, patient family is looking for the rehab for the patient. Subjective Date/time seen: 12/09/23 14:39 Interval history: POD #23: INSERTION GAMMA DAMON LEFT HIP, LEFT ANKLE EVALUATION UNDER FLUOROSCOPY Significant improvement in mentation today. Able to speak. Still confused to location/situation and today appear more anxious according to her son. Review of Systems Review of Systems: ROS unobtainable: Yes unobtainable due to medical condition ( dementia) Exam Narrative: Elderly frail Patient is comfortable, NAD HEENT: eyes are clear and none icteric LUNGS:CTA HEART: RR S1S2 ABD: BS+, Soft and nontender Lower extremities: no edema SKIN: nonjaundiced Neuro: grossly intact. Objective Data Vital Signs Vital Signs: Vital Signs - 24 hr 12/08/23 18:18 12/08/23 23:27 12/08/23 19:45 Temperature 37.4 C 36.6 C Pulse Rate 82 Respiratory Rate 16 Blood Pressure 127/54 L Pulse Oximetry 100 Oxygen Delivery Room Air 12/09/23 06:00 12/09/23 07:00 12/09/23 08:43 Temperature 36.7 C 36.6 C Pulse Rate 85 89 Respiratory Rate 16 16 Blood Pressure 153/71 H 148/65 H Pulse Oximetry 97 100 Oxygen Delivery Room Air 12/09/23 10:00 12/09/23 08:00 Temperature 37.5 C Pulse Rate 93 Respiratory Rate 16 Blood Pressure 158/66 H Pulse Oximetry 98 Oxygen Delivery Room Air Intake/Output Intake/Output: Intake & Output 12/06/23 12/07/23 12/08/23 12/09/23 23:59 23:59 23:59 23:59 Intake Total 0 1170.0 1500 0 Output Total 560 430 750 0 Balance -560 740.0 750 0 Meds/Results Medications: Active Medications Generic Name Dose Route Start Last Admin Trade Name Freq PRN Reason Stop Dose Admin Acetaminophen 500
[2023-12-09] MEDS: CEFEPIME 1 GM/NS 50 ML 1 GM/50 ML BAG IVPB (14:47)
[2023-12-09] MEDS: ENOXAPARIN 30 MG/0.3 ML SYRINGE SUB-Q (14:47)
[2023-12-09] MEDS: oxyCODONE/ACETAMINOPHEN (*CRX) 5-325 MG TABLET 1 TABLET PO (19:02)
--- NOTE | 2023-12-09 19:42 | PC.NURSE ---
Patient note to be in significant amount of pain. Patient gets very anxious at baseline per family at bedside. Spoke with Dr. Chan who recommended Percocet 5mg BID PRN to help with post op pain now that patient is alert and following commands.
[2023-12-09] MEDS: CEPHALEXIN 250 MG CAPSULE PO (20:30)
[2023-12-09] MEDS: traZODone HCL 50 MG TABLET 150 MG PO (20:30)
[2023-12-09] MEDS: QUEtiapine FUMARATE 25 MG TABLET PO (20:30)
[2023-12-09 20:51] VITALS: BP 153/70; PULSE 74; RESP 20; TEMP 36.9; O2SAT 96
[2023-12-10] VITALS (21 sets, daily range): BP systolic 99–140; BP diastolic 42–90; PULSE 50–87; RESP 16–20; TEMP 36.1–37; O2SAT 95–100
[2023-12-10] MEDS: DOXYCYCLINE 100 MG/NS 100 ML 100 MG/100 ML BAG IVPB (05:09)
[2023-12-10 05:25] LABS: Basophils Percent Auto 0.4 % (0.2-1.2); Eosinophils Absolute Auto 0.3 K/mm3 (0-0.3); Eosinophils Percent Auto 4.2 % (0-4.4); Hematocrit 25.3 % (37.0-47.0); Hemoglobin 8.1 g/dL (12.0-15.0); Immature Granulocyte Absolute 0.06 K/mm3 (0.00-0.031); Immature Granulocyte Percent A 0.7 % (0-0.5); Lymphocytes Absolute Auto 1.03 K/mm3 (0.9-3.2); Lymphocytes Percent Auto 12.8 % (18.3-44.2); Mean Corpuscular Hemoglobin 31.3 pg (26-34); Mean Corpuscular Volume 97.7 fl (80-100); Mean Platelet Volume 10.2 fl (7.4-10.4); Monocytes Absolute Auto 0.7 K/mm3 (0.1-0.6); Monocytes Percent Auto 9.2 % (2.6-8.5); Neutrophils Absolute Auto 5.8 K/mm3 (1.3-6.7); Neutrophils Percent Auto 72.7 % (45.5-73.1); Platelet Count Result 174 k/mm3 (150-375); Red Blood Count 2.59 M/mm3 (4.2-5.4); Red Cell Distribution Width 16.5 % (11.5-14.5)
[2023-12-10 05:31] LABS: Sodium 130 mmol/L (137-145)
[2023-12-10 05:43] LABS: Anion Gap 11 mmol/L (4-12); Blood Urea Nitrogen 36 mg/dL (7-17); Calcium 8.1 mg/dL (8.4-10.2); Carbon Dioxide 34 mmol/L (22-30); Chloride 85 mmol/L (98-107); Estimated CRCL calculation 7 ml/min; Estimated Glomerular Filt Rate 8; Glucose 102 mg/dL (65-110); Phosphorus 3.1 mg/dL (2.5-4.5)
[2023-12-10 08:17] LABS: Potassium 3.7 mmol/L (3.4-5.0)
--- NOTE | 2023-12-10 08:54 | PCPTNOTE ---
Attempted to see patient for PT, however patient was out of the room for dialysis.
[2023-12-10] MEDS: SODIUM CHLORIDE 0.9% IV 1,000 ML 999 ML IV CONT (09:43)
[2023-12-10] MEDS: EPOETIN ALFA-EPBX 10,000 UNITS/ML VIAL 10000 UNITS IV PUSH (09:43)
--- NOTE | 2023-12-10 10:48 | PCOTNOTE ---
The patient treatment was not able to be completed. Patient was out of the room for HD.
--- NOTE | 2023-12-10 11:50 | P.PNNP_ITS ---
Progress Note: A&P Assessment and Plan (1) End stage renal disease: Code(s): N18.6 - End stage renal disease Status: Chronic Assessment and Plan: * HD today * continue M/W/F dialysis schedule while hospitalized * follow electrolytes, volume status, and clearance * primary emd teacher = Dr. Cristina Infante (2) Closed intertrochanteric fracture of left femur: Qualifiers: Encounter type: initial encounter Fracture alignment: displaced Qualified Code(s): S72.142A - Displaced intertrochanteric fracture of left femur, initial encounter for closed fracture Code(s): S72.142A - Displaced intertrochanteric fracture of left femur, initial encounter for closed fracture Status: Acute Assessment and Plan: * as noted by admission imaging * Orthopedic Surgery following * s/p repair and gamma oliver insertion (on 12/07/23) * pain control * PT/OT as tolerated (3) Hypertension: Qualifiers: Hypertension type: unspecified Qualified Code(s): I10 - Essential (primary) hypertension Code(s): I10 - Essential (primary) hypertension Status: Chronic Assessment and Plan: * running a bit soft at this time * however, maybe a manifestation of low H/H and pain medications * follow trend of hemodynamics (4) Afib: Qualifiers: Atrial fibrillation type: permanent Qualified Code(s): I48.21 - Permanent atrial fibrillation Code(s): I48.91 - Unspecified atrial fibrillation Status: Acute Assessment and Plan: * rate control strategy * anticoagulation on hold (5) Anemia: Code(s): D64.9 - Anemia, unspecified Status: Acute Assessment and Plan: * due to ESRD and recent operative intervention * an element of iron deficiency noted by anemia studies * PRBC transfusion per protocol * s/p IV venofer * ELOY with HD * follow trend of H/H (6) Fall: Code(s): W19.XXXA - Unspecified fall, initial encounter Status: Acute Assessment and Plan: * fall precautions * PT/OT as tolerated Will continue to follow. Subjective Date/time seen: 12/10/23 11:50 Interval history: Follow-up for end stage renal disease on hemodialysis. Tolerating dialysis treatment at the time of my visit (seen on HD at 11:40AM); no apparent distress noted; working with therapy as tolerated; pain control seems adequate; mentation/mental status seems relatively stable at this time. Exam Narrative: General: elderly female in NAD Heart: normal S1 and S2; no rub Lungs: clear anteriorly Abdomen: soft, nontender, nondistended, positive bowel sounds Extremities: no cyanosis or clubbing; no edema Skin: no rash Objective Data Vital Signs Vital Signs: Vital Signs Temp Pulse Resp BP Pulse Ox O2 Del Method FiO2 12/10/23 11:45 80 128/90 12/10/23 11:30 71 121/69 Room Air 12/10/23 11:15 87 130/62 12/10/23 11:00 72 125/63 12/10/23 10:45 73 140/76 12/10/23 10:30 76 137/69 12/10/23 10:15 71 1198/63 12/10/23 10:00 76 99/66 L 12/10/23 09:45 59 L 116/63 12/10/23 09:30 50 L 118/60 12/10/23 09:15 70 127/65 12/10/23 09:00 75 122/59 L 12/10/23 08:45 61 116/66 12/10/23 08:30 68 124/
--- NOTE | 2023-12-10 11:50 | PM.PNNEP ---
Progress Note: A&P Assessment and Plan (1) End stage renal disease: Code(s): N18.6 - End stage renal disease Status: Chronic Assessment and Plan: HD today continue M/W/F dialysis schedule while hospitalized follow electrolytes, volume status, and clearance primary funeral home general manager = Dr. Cristina Infante (2) Closed intertrochanteric fracture of left femur: Qualifiers: Encounter type: initial encounter Fracture alignment: displaced Qualified Code(s): S72.142A - Displaced intertrochanteric fracture of left femur, initial encounter for closed fracture Code(s): S72.142A - Displaced intertrochanteric fracture of left femur, initial encounter for closed fracture Status: Acute Assessment and Plan: as noted by admission imaging Orthopedic Surgery following s/p repair and gamma oliver insertion (on 12/07/23) pain control PT/OT as tolerated (3) Hypertension: Qualifiers: Hypertension type: unspecified Qualified Code(s): I10 - Essential (primary) hypertension Code(s): I10 - Essential (primary) hypertension Status: Chronic Assessment and Plan: running a bit soft at this time however, maybe a manifestation of low H/H and pain medications follow trend of hemodynamics (4) Afib: Qualifiers: Atrial fibrillation type: permanent Qualified Code(s): I48.21 - Permanent atrial fibrillation Code(s): I48.91 - Unspecified atrial fibrillation Status: Acute Assessment and Plan: rate control strategy anticoagulation on hold (5) Anemia: Code(s): D64.9 - Anemia, unspecified Status: Acute Assessment and Plan: due to ESRD and recent operative intervention an element of iron deficiency noted by anemia studies PRBC transfusion per protocol s/p IV venofer ELOY with HD follow trend of H/H (6) Fall: Code(s): W19.XXXA - Unspecified fall, initial encounter Status: Acute Assessment and Plan: fall precautions PT/OT as tolerated Will continue to follow. Subjective Date/time seen: 12/10/23 11:50 Interval history: Follow-up for end stage renal disease on hemodialysis. Tolerating dialysis treatment at the time of my visit (seen on HD at 11:40AM); no apparent distress noted; working with therapy as tolerated; pain control seems adequate; mentation/mental status seems relatively stable at this time. Exam Narrative: General: elderly female in NAD Heart: normal S1 and S2; no rub Lungs: clear anteriorly Abdomen: soft, nontender, nondistended, positive bowel sounds Extremities: no cyanosis or clubbing; no edema Skin: no rash Objective Data Vital Signs Vital Signs: Vital Signs Temp Pulse Resp BP Pulse Ox O2 Del Method FiO2 12/10/23 11:45 80 128/90 12/10/23 11:30 71 121/69 Room Air 12/10/23 11:15 87 130/62 12/10/23 11:00 72 125/63 12/10/23 10:45 73 140/76 12/10/23 10:30 76 137/69 12/10/23 10:15 71 1198/63 12/10/23 10:00 76 99/66 L 12/10/23 09:45 59 L 116/63 12/10/23 09:30 50 L 118/60 12/10/23 09:15 70 127/65 12/10/23 09:00 75 122/59 L 12/10/23 08:45 61 116/66 12/10/23 08:30 68 124/56 L 12/10/23 08:16 98.4 F 67 18 126/54 L 96 12/10/23 08:16 Room Air 96 12/10/23 05:32 97 F L 73 20 108/42 L 100 12/09/23 20:51 98.4 F 74 20 153/70 H 96 Intake/Output Intake/Output: Intake & Output 12/07/23 12/08/23 12/09/23 12/10/23 23:59 23:59 23:59 23:59 Intake Total 1170.0 1500 640 340 Output Total 430 750 0 1000 Balance 740.0 750 640 -660 Meds/Results Medications: Active Medications Generic Name Dose Route Start Last Admin Trade Name Freq PRN Reason Stop Dose Admin Acetaminophen 500 mg 12/07/23 11:28 12/10/23 15:23 Acetaminophen 500 Mg Tablet PO 500 mg Q6H PRN Administration Pain Rated 1-3
[2023-12-10] MEDS: CYANOCOBALAMIN 500 MCG TABLET PO (12:47)
[2023-12-10] MEDS: CALCIUM ACETATE 667 MG TABLET 1334 MG PO ×2 (12:47→17:35)
[2023-12-10] MEDS: SENNA/DOCUSATE SODIUM TABLET 2 TAB PO ×2 (12:48→17:59)
[2023-12-10] MEDS: ESCITALOPRAM OXALATE 5 MG TABLET PO (12:48)
[2023-12-10] MEDS: VITAMIN E 400 UNIT CAPSULE PO (12:48)
[2023-12-10] MEDS: dilTIAZem HCL CD 180 MG CAP.24HR PO (12:48)
[2023-12-10] MEDS: FUROSEMIDE 20 MG TABLET PO (12:48)
[2023-12-10] MEDS: FAMOTIDINE 20 MG TABLET 40 MG PO (12:48)
[2023-12-10] MEDS: polyethylene glycoL 3350 17 GM POWD.PACK PO (12:48)
[2023-12-10] MEDS: ENOXAPARIN 30 MG/0.3 ML SYRINGE SUB-Q (12:51)
--- NOTE | 2023-12-10 12:51 | PM.PNORT ---
Progress Note: A&P Assessment and Plan (1) Closed intertrochanteric fracture of left femur: Qualifiers: Encounter type: initial encounter Fracture alignment: displaced Qualified Code(s): S72.142A - Displaced intertrochanteric fracture of left femur, initial encounter for closed fracture Code(s): S72.142A - Displaced intertrochanteric fracture of left femur, initial encounter for closed fracture Status: Acute Assessment and Plan: MIN IS POD 4 FROM HER INJURY TO HER LEFT HIP. SHE HAS IMPROVED FROM AN ACTIVITY POV. SHE DENIES ANY OTHER PAIN OR SOB. SHE IS IMPROVING HER ACTIVITY LEVEL. SHE WILL EVENTUALLY REQUIRE SNF FOR DISCHARGE. Subjective Subjective Date/Time Seen: 12/10/23 12:51 Interval history: POD 3 DOING WELL AND IMPROVING. NO CALF PAIN Exam Extrem: Other: VSS AFEBRILE DRESSING DRY NV INTACT NEG HOMANS SIGN, THIGH AND CALF SOFT NON TENDER Objective Data Vital Signs Vital Signs: Vital Signs - 24 hr 12/09/23 14:00 12/09/23 20:51 12/10/23 05:32 Temperature 36.6 C 36.9 C 36.1 C L Pulse Rate 91 74 73 Respiratory Rate 16 20 20 Blood Pressure 166/68 H 153/70 H 108/42 L Pulse Oximetry 95 96 100 Fraction of Inspired Oxygen 12/10/23 08:16 12/10/23 08:16 12/10/23 08:30 Temperature 36.9 C Pulse Rate 67 68 Respiratory Rate 18 Blood Pressure 126/54 L 124/56 L Pulse Oximetry 96 Fraction of Inspired Oxygen 96 12/10/23 08:45 12/10/23 09:00 12/10/23 09:15 Temperature Pulse Rate 61 75 70 Respiratory Rate Blood Pressure 116/66 122/59 L 127/65 Pulse Oximetry Fraction of Inspired Oxygen 12/10/23 09:30 12/10/23 10:15 12/10/23 10:30 Temperature Pulse Rate 50 L 71 76 Respiratory Rate Blood Pressure 118/60 119/63 137/69 Pulse Oximetry Fraction of Inspired Oxygen 12/10/23 10:45 12/10/23 11:15 12/10/23 11:30 Temperature Pulse Rate 73 87 71 Respiratory Rate Blood Pressure 140/76 130/62 121/69 Pulse Oximetry Fraction of Inspired Oxygen 12/10/23 12:00 12/10/23 12:14 12/10/23 09:45 Temperature 36.9 C Pulse Rate 75 81 59 L Respiratory Rate 16 Blood Pressure 126/64 132/70 116/63 Pulse Oximetry 96 Fraction of Inspired Oxygen 12/10/23 10:00 12/10/23 11:00 12/10/23 11:45 Temperature Pulse Rate 76 72 80 Respiratory Rate Blood Pressure 99/66 L 125/63 128/90 Pulse Oximetry Fraction of Inspired Oxygen Intake/Output Intake/Output: Intake & Output 12/07/23 12/08/23 12/09/23 12/10/23 23:59 23:59 23:59 23:59 Intake Total 1170.0 1500 640 100 Output Total 430 750 0 1000 Balance 740.0 750 640 -900 Meds/Results Medications: Active Medications Generic Name Dose Route Start Last Admin Trade Name Freq PRN Reason Stop Dose Admin Acetaminophen 500 mg 12/07/23 11:28 12/09/23 18:05 Acetaminophen 500 Mg Tablet PO 500 mg Q6H PRN Administration Pain Rated 1-3 Acetaminophen 650 mg 12/08/23 16:11 12/08/23 18:18 Acetaminophen 650 Mg Suppository RECTAL 650 mg Q6H PRN Administration Mild Pain (1-3) or Fever Apixaban 2.5 mg 12/07/23 21:00 12/09/23 12:01 Apixaban 2.5 Mg Tablet PO Not Given Q12HR [facility] Calcium Acetate 1,334 mg 12/06/23 08:00 12/10/23 12:47 Calcium Acetate 667 Mg Tablet PO 1,334 mg TIDWM RENETTA Administration Cephalexin HCl 250 mg 12/07/23 21:00 12/09/23 20:30 Cephalexin 250 Mg Capsule PO 250 mg HS RENETTA Administration Cholestyramine Resin 4 gm 12/06/23 21:00 12/09/23 01:20 Cholestyramine (W/ Sugar) 4 Gm Powd.Pack PO Not Given Q48H RENETTA Cyanocobalamin 500 mcg 12/08/23 09:00 12/10/23 12:47 Cyanocobalamin 500 Mcg Tablet PO 500 mcg DAILY RENETTA Administration Diazepam 5 mg 12/07/23 11:28 Diazepam (*Crx) 5 Mg Tablet PO Q8H PRN Muscle Spasm Diclofenac Sodium 1 applic 12/07/23 11:28 12/07/23 13:31 Diclofenac Sodium 1% 100 Gm Gel (*Bkc) TOPICAL 1 applic QID PRN Adm
[2023-12-10] MEDS: ONDANSETRON INJ 4 MG/2 ML VIAL IV PUSH (15:00)
[2023-12-10] MEDS: ACETAMINOPHEN 500 MG TABLET PO (15:23)
[2023-12-10] MEDS: oxyCODONE/ACETAMINOPHEN (*CRX) 5-325 MG TABLET 1 TABLET PO (17:03)
--- NOTE | 2023-12-10 17:19 | WPDPN ---
Progress Note: A&P Assessment and Plan (1) Closed intertrochanteric fracture of left femur: Qualifiers: Encounter type: initial encounter Fracture alignment: displaced Qualified Code(s): S72.142A - Displaced intertrochanteric fracture of left femur, initial encounter for closed fracture Code(s): S72.142A - Displaced intertrochanteric fracture of left femur, initial encounter for closed fracture Status: Acute Assessment and Plan: Hip Xray reviewed PRN pain control s/p Left intramedullary nail PT/OT Ortho on board awaiting PT/OT eval for placement (2) ESRD (end stage renal disease) on dialysis: Code(s): N18.6 - End stage renal disease; Z99.2 - Dependence on renal dialysis Status: Chronic Assessment and Plan: continue hemo dialysis nephrology following (3) Afib: Qualifiers: Atrial fibrillation type: permanent Qualified Code(s): I48.21 - Permanent atrial fibrillation Code(s): I48.91 - Unspecified atrial fibrillation Status: Acute Assessment and Plan: rate controlled and anticoagulated Continue diltiazem, eliquis on hold due to possible ORIF (4) Fall: Code(s): W19.XXXA - Unspecified fall, initial encounter Status: Acute Assessment and Plan: fall precautions PT/OT (5) Anemia: Code(s): D64.9 - Anemia, unspecified Status: Acute Assessment and Plan: Hb 8.2, from 9.7, MCV 102.3 B12 >1000, Folate 6.4, and Isat 12 Venofer 100mg once Occult blood stool GI consult for possible GI bleed since patient dropped from 9.7 to 6.4 this admission monitor h and H (6) Fever: Code(s): R50.9 - Fever, unspecified Status: Acute Assessment and Plan: Patient having fever this morning with T 100.6 and Blood pressure 90/33 CT chest ordered Blood,sputum and urine culture ordered MRSA pending Continue gentle rehydration Started on Cefepime and Doxycycline adjust with clinical course monitor closely on telmetry Plan patient with dementia and ESRD on HD, had a fall and resulting in fracture for left hip s/p ORIF POD #3, patient clinical symptom have improved and seen by her orthopedic, patient is ready to discharge to rehab, patient family is looking for the rehab for the patient. Patient's son is present in the room and another daughter is looking for the rehab place. Subjective Date/time seen: 12/10/23 17:19 Interval history: POD 4 DOING WELL AND IMPROVING. NO CALF PAIN, today patient is participating in physical therapy, her son is present in the room waiting for placement. Today patient had a dialysis. Review of Systems Review of Systems: ROS unobtainable: Yes unobtainable due to medical condition ( dementia) Exam Narrative: Elderly frail Patient is comfortable, NAD HEENT: eyes are clear and none icteric LUNGS:CTA HEART: RR S1S2 ABD: BS+, Soft and nontender Lower extremities: no edema SKIN: nonjaundiced Neuro: grossly intact. Objective Data Vital Signs Vital Signs: Vital Signs - 24 hr 12/09/23 20:51 12/10/23 05:32 12/10/23 08:16 Temperature 36.9 C 36.1 C L Pulse Rate 74 73 Respiratory Rate 20 20 Blood Pressure 153/70 H 108/42 L Pulse Oximetry 96 100 Oxygen Delivery Fraction of Inspired Oxygen 96 12/10/23 08:16 12/10/23 08:30 12/10/23 08:45 Temperature 36.9 C Pulse Rate 67 68 61 Respiratory Rate 18 Blood Pressure 126/54 L 124/56 L 116/66 Pulse Oximetry 96 Oxygen Delivery Fraction of Inspired Oxygen 12/10/23 09:00 12/10/23 09:15 12/10/23 09:30 Temperature Pulse Rate 75 70 50 L Respiratory Rate Blood Pressure 122/59 L 127/65 118/60 Pulse Oximetry Oxygen Delivery Fraction of Inspired Oxygen 12/10/23 10:15 12/10/23 10:30 12/10/23 10:45 Temperature Pulse Rate 71 76 73 Respiratory Rate Blood Pressure 119/63 137/69 140/76 Pulse Oximetry Oxygen Delivery Fraction of Inspired
[2023-12-10] MEDS: CALCIUM CARBONATE (TUMS) 500 MG (200 MG ELEMENTAL) PO (17:35)
[2023-12-10] MEDS: CHOLESTYRAMINE (W/ SUGAR) 4 GM POWD.PACK PO (20:51)
[2023-12-10] MEDS: traZODone HCL 50 MG TABLET 150 MG PO (20:51)
[2023-12-10] MEDS: QUEtiapine FUMARATE 25 MG TABLET PO (20:51)
[2023-12-10] MEDS: CEPHALEXIN 250 MG CAPSULE PO (20:51)
[2023-12-10] MEDS: DOXYCYCLINE HYCLATE 100 MG TABLET PO (20:53)
[2023-12-11 06:00] VITALS: BP 118/60; PULSE 100; RESP 16; TEMP 36.5; O2SAT 98
[2023-12-11] MEDS: DOXYCYCLINE HYCLATE 100 MG TABLET PO ×2 (06:45→21:07)
[2023-12-11] MEDS: ACETAMINOPHEN 500 MG TABLET PO ×2 (08:04→16:42)
[2023-12-11] MEDS: CALCIUM ACETATE 667 MG TABLET 1334 MG PO ×3 (08:06→16:43)
[2023-12-11] MEDS: FAMOTIDINE 20 MG TABLET 40 MG PO (08:06)
[2023-12-11] MEDS: VITAMIN E 400 UNIT CAPSULE PO (08:06)
[2023-12-11] MEDS: ENOXAPARIN 30 MG/0.3 ML SYRINGE SUB-Q (08:07)
[2023-12-11] MEDS: CYANOCOBALAMIN 500 MCG TABLET PO (08:07)
[2023-12-11] MEDS: SENNA/DOCUSATE SODIUM TABLET 2 TAB PO ×2 (08:07→16:43)
[2023-12-11] MEDS: ESCITALOPRAM OXALATE 5 MG TABLET PO (08:07)
[2023-12-11] MEDS: FUROSEMIDE 20 MG TABLET PO (08:07)
[2023-12-11] MEDS: dilTIAZem HCL CD 180 MG CAP.24HR PO (08:07)
[2023-12-11 08:09] VITALS: BP 166/67; PULSE 72; RESP 22; TEMP 36.8; O2SAT 100
--- NOTE | 2023-12-11 09:24 | PM.PNORT ---
Progress Note: A&P Assessment and Plan (1) Closed intertrochanteric fracture of left femur: Qualifiers: Encounter type: initial encounter Fracture alignment: displaced Qualified Code(s): S72.142A - Displaced intertrochanteric fracture of left femur, initial encounter for closed fracture Code(s): S72.142A - Displaced intertrochanteric fracture of left femur, initial encounter for closed fracture Status: Acute Assessment and Plan: POD #4: INSERTION GAMMA DAMON LEFT HIP, LEFT ANKLE EVALUATION UNDER FLUOROSCOPY PT/OT to begin. WBAT. Walker. HIGH FALL RISK. Pain control. HOLD all narcotics. Improving mentation. Repeat swallow study and then possible transition back to PO Tylenol. Continue Tylenol suppository in the interim. Ice. Postoperative anemia. 150 cc blood output intraoperatively per OR report. Patient received 1 unit of PRBCs during HD on 12/07. CBC reveals stable HgB. GI consulted by medicine team for concern for GIB. Suspect anemia is related to postoperative status. Per GI, transfuse for HgB <7. No evidence of hematoma on thigh/leg. SCDs. Incentive Spirometry Use to resume with improved mentation. Monitor Dressing. Change daily. Okay to add ABD for increased drainage. Ice Hip. Protect skin. Monitor Vitals. Monitor I/Os. (2) Closed left fibular fracture: Qualifiers: Encounter type: initial encounter Fibula location: distal Fracture morphology: unspecified fracture morphology Qualified Code(s): S82.832A - Other fracture of upper and lower end of left fibula, initial encounter for closed fracture Code(s): S82.402A - Unspecified fracture of shaft of left fibula, initial encounter for closed fracture Status: Acute Assessment and Plan: Fluoroscopic views of the left ankle which occurred intraoperatively reveal no fracture. No bruising or swelling noted. No c/o pain. Continue to monitor. (3) Dementia: Qualifiers: Dementia type: vascular dementia Dementia severity: unspecified severity Dementia behavioral or psychological symptom: with anxiety Qualified Code(s): F01.54 - Vascular dementia, unspecified severity, with anxiety Code(s): F03.90 - Unspecified dementia, unspecified severity, without behavioral disturbance, psychotic disturbance, mood disturbance, and anxiety Status: Acute Assessment and Plan: HOLD narcotics. Improved mentation. (4) Dialysis patient: Code(s): Z99.2 - Dependence on renal dialysis Status: Acute (5) Personal history of colon cancer: Code(s): Z85.038 - Personal history of other malignant neoplasm of large intestine Status: Acute Assessment and Plan: GI consulted due to anemia by medicine team. Suspect possibly due to postoperative anemia given recent surgical intervention. 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 Da Silva, who agrees with current plan as indicated above. No further recommendations from Dr. Da Silva at this time. Subjective Subjective Date/Time Seen: 12/11/23 09:24 Post Op day: 4 Interval history: POD #4: INSERTION GAMMA DAMON LEFT HIP, LEFT ANKLE EVALUATION UNDER FLUOROSCOPY Continued improvement in mentation today. Tolerating PO intake better. Review of Systems Review of Systems: All systems reviewed & are unremarkable except as noted in HPI and below Exam Resp: Effort & Inspection: normal respiratory effort Cardio: Rate: regular rate Rhythm: regular rhythm GI: GI Palp: Yes Soft to palpation Neuro: Motor exam (neuro): Abnormal motor strength present Extrem: Left lower extremity: hip/thigh Details: swelling Location: of the hip (lateral, soft ) and other (incision c/d/i. ); no crepitus, knee Details: normal to inspection; no tenderness, ank
[2023-12-11 09:59] LABS: Hematocrit 28.7 % (37.0-47.0); Hemoglobin 8.9 g/dL (12.0-15.0); Mean Corpuscular Hemoglobin 31.2 pg (26-34); Mean Corpuscular Volume 100.7 fl (80-100); Mean Platelet Volume 10.1 fl (7.4-10.4); Platelet Count Result 220 k/mm3 (150-375); Red Blood Count 2.85 M/mm3 (4.2-5.4); Red Cell Distribution Width 16.2 % (11.5-14.5); White Blood Count 7.7 K/mm3 (4.5-10.0)
[2023-12-11 10:17] LABS: Albumin Level 3.5 g/dL (3.5-5.1); Anion Gap 7 mmol/L (4-12); Blood Urea Nitrogen 22 mg/dL (7-17); Calcium 9.1 mg/dL (8.4-10.2); Carbon Dioxide 31 mmol/L (22-30); Chloride 95 mmol/L (98-107); Estimated CRCL calculation 10 ml/min; Estimated Glomerular Filt Rate 13; Glucose 149 mg/dL (65-110); Phosphorus 1.9 mg/dL (2.5-4.5); Potassium 4.1 mmol/L (3.4-5.0); Sodium 133 mmol/L (137-145)
[2023-12-11] MEDS: oxyCODONE/ACETAMINOPHEN (*CRX) 5-325 MG TABLET 1 TABLET PO (12:06)
--- NOTE | 2023-12-11 12:50 | PM.PNNEP ---
Progress Note: A&P Assessment and Plan (1) End stage renal disease: Code(s): N18.6 - End stage renal disease Status: Chronic Assessment and Plan: HD tomorrow continue M/W/F dialysis schedule while hospitalized follow electrolytes, volume status, and clearance primary deckhand shrimp boat = Dr. Cristina Infante (2) Closed intertrochanteric fracture of left femur: Qualifiers: Encounter type: initial encounter Fracture alignment: displaced Qualified Code(s): S72.142A - Displaced intertrochanteric fracture of left femur, initial encounter for closed fracture Code(s): S72.142A - Displaced intertrochanteric fracture of left femur, initial encounter for closed fracture Status: Acute Assessment and Plan: as noted by admission imaging Orthopedic Surgery following s/p repair and gamma oliver insertion (on 12/07/23) pain control PT/OT as tolerated (3) Hypertension: Qualifiers: Hypertension type: unspecified Qualified Code(s): I10 - Essential (primary) hypertension Code(s): I10 - Essential (primary) hypertension Status: Chronic Assessment and Plan: relatively stable follow trend of hemodynamics (4) Afib: Qualifiers: Atrial fibrillation type: permanent Qualified Code(s): I48.21 - Permanent atrial fibrillation Code(s): I48.91 - Unspecified atrial fibrillation Status: Acute Assessment and Plan: rate control strategy anticoagulation on hold (5) Anemia: Code(s): D64.9 - Anemia, unspecified Status: Acute Assessment and Plan: due to ESRD and recent operative intervention an element of iron deficiency noted by anemia studies PRBC transfusion per protocol s/p IV venofer ELOY with HD follow trend of H/H (6) Fall: Code(s): W19.XXXA - Unspecified fall, initial encounter Status: Acute Assessment and Plan: fall precautions PT/OT as tolerated Will continue to follow. Subjective Date/time seen: 12/11/23 12:50 Interval history: Follow-up for end stage renal disease on hemodialysis. Tolerated dialysis treatment yesterday without any issues or problems voiced; mentation appears stable if not better at the time of my visit; no events overnight or earlier this morning; n o apparent distress voiced when seen other than mild left pain. Exam Narrative: General: elderly female in NAD Heart: normal S1 and S2; no rub Lungs: clear anteriorly Abdomen: soft, nontender, nondistended, positive bowel sounds Extremities: no cyanosis or clubbing; no edema Skin: no nodules Objective Data Vital Signs Vital Signs: Vital Signs Temp Pulse Resp BP Pulse Ox O2 Del Method 12/11/23 12:43 97.7 F 66 20 151/71 H 99 12/11/23 08:09 98.3 F 72 22 H 166/67 H 100 12/11/23 06:00 97.7 F 100 16 118/60 98 12/10/23 21:30 95 Room Air 12/10/23 20:00 Room Air 12/10/23 20:01 98.1 F 67 16 116/57 L 95 12/10/23 16:38 97.0 F L 74 16 135/47 L 96 Intake/Output Intake/Output: Intake & Output 12/08/23 12/09/23 12/10/23 12/11/23 23:59 23:59 23:59 23:59 Intake Total 6448 509 4166 180 Output Total 750 0 1000 Balance 750 640 90 180 Meds/Results Medications: Active Medications Generic Name Dose Route Start Last Admin Trade Name Freq PRN Reason Stop Dose Admin Acetaminophen 500 mg 12/07/23 11:28 12/11/23 08:04 Acetaminophen 500 Mg Tablet PO 500 mg Q6H PRN Administration Pain Rated 1-3 Acetaminophen 650 mg 12/08/23 16:11 12/08/23 18:18 Acetaminophen 650 Mg Suppository RECTAL 650 mg Q6H PRN Administration Mild Pain (1-3) or Fever Apixaban 2.5 mg 12/07/23 21:00 12/09/23 12:01 Apixaban 2.5 Mg Tablet PO Not Given Q12HR [facility] Calcium Acetate 1,334 mg 12/06/23 08:00 12/11/23 12:06 Calcium Acetate 667 Mg Tablet PO 1,334 mg TIDWM [facility] Administration Calcium Carbon
--- NOTE | 2023-12-11 12:50 | P.PNNP_ITS ---
Progress Note: A&P Assessment and Plan (1) End stage renal disease: Code(s): N18.6 - End stage renal disease Status: Chronic Assessment and Plan: * HD tomorrow * continue M/W/F dialysis schedule while hospitalized * follow electrolytes, volume status, and clearance * primary director biostatistics = Dr. Cristina Infante (2) Closed intertrochanteric fracture of left femur: Qualifiers: Encounter type: initial encounter Fracture alignment: displaced Qualified Code(s): S72.142A - Displaced intertrochanteric fracture of left femur, initial encounter for closed fracture Code(s): S72.142A - Displaced intertrochanteric fracture of left femur, initial encounter for closed fracture Status: Acute Assessment and Plan: * as noted by admission imaging * Orthopedic Surgery following * s/p repair and gamma oliver insertion (on 12/07/23) * pain control * PT/OT as tolerated (3) Hypertension: Qualifiers: Hypertension type: unspecified Qualified Code(s): I10 - Essential (primary) hypertension Code(s): I10 - Essential (primary) hypertension Status: Chronic Assessment and Plan: * relatively stable * follow trend of hemodynamics (4) Afib: Qualifiers: Atrial fibrillation type: permanent Qualified Code(s): I48.21 - Permanent atrial fibrillation Code(s): I48.91 - Unspecified atrial fibrillation Status: Acute Assessment and Plan: * rate control strategy * anticoagulation on hold (5) Anemia: Code(s): D64.9 - Anemia, unspecified Status: Acute Assessment and Plan: * due to ESRD and recent operative intervention * an element of iron deficiency noted by anemia studies * PRBC transfusion per protocol * s/p IV venofer * ELOY with HD * follow trend of H/H (6) Fall: Code(s): W19.XXXA - Unspecified fall, initial encounter Status: Acute Assessment and Plan: * fall precautions * PT/OT as tolerated Will continue to follow. Subjective Date/time seen: 12/11/23 12:50 Interval history: Follow-up for end stage renal disease on hemodialysis. Tolerated dialysis treatment yesterday without any issues or problems voiced; mentation appears stable if not better at the time of my visit; no events over night or earlier this morning; n o apparent distress voiced when seen other than mild left pain. Exam Narrative: General: elderly female in [facility] Heart: normal S1 and S2; no rub Lungs: clear anteriorly Abdomen: soft, nontender, nondistended, positive bowel sounds Extremities: no cyanosis or clubbing; no edema Skin: no nodules Objective Data Vital Signs Vital Signs: Vital Signs Temp Pulse Resp BP Pulse Ox O2 Del Method 12/11/23 12:43 97.7 F 66 20 151/71 H 99 12/11/23 08:09 98.3 F 72 22 H 166/67 H 100 12/11/23 06:00 97.7 F 100 16 118/60 98 12/10/23 21:30 95 Room Air 12/10/23 20:00 Room Air 12/10/23 20:01 98.1 F 67 16 116/57 L 95 12/10/23 16:38 97.0 F L 74 16 135/47 L 96 Intake/Output Intake/Output: Intake & Output 12/08/23 12/09/23 12/10/23 12/11/23 23:59 23:59 23:59 23:59 Intake Total 2923 422 0562 180 Output Total 750 0 1000 Balance 75
[2023-12-11 12:53] VITALS: BP 151/71; PULSE 66; RESP 20; TEMP 36.5; O2SAT 99
[2023-12-11] MEDS: LIDOCAINE 5% PATCH 2 PATCH TRANSDERM (13:48)
--- NOTE | 2023-12-11 14:44 | PM.IMPN ---
Progress Note: A&P Assessment and Plan (1) Closed intertrochanteric fracture of left femur: Qualifiers: Encounter type: initial encounter Fracture alignment: displaced Qualified Code(s): S72.142A - Displaced intertrochanteric fracture of left femur, initial encounter for closed fracture Code(s): S72.142A - Displaced intertrochanteric fracture of left femur, initial encounter for closed fracture Status: Acute Assessment and Plan: Hip Xray reviewed PRN pain control s/p Left intramedullary nail PT/OT Ortho on board awaiting PT/OT eval for placement (2) ESRD (end stage renal disease) on dialysis: Code(s): N18.6 - End stage renal disease; Z99.2 - Dependence on renal dialysis Status: Chronic Assessment and Plan: continue hemo dialysis nephrology following (3) Afib: Qualifiers: Atrial fibrillation type: permanent Qualified Code(s): I48.21 - Permanent atrial fibrillation Code(s): I48.91 - Unspecified atrial fibrillation Status: Acute Assessment and Plan: rate controlled and anticoagulated Continue diltiazem, eliquis on hold due to possible ORIF (4) Fall: Code(s): W19.XXXA - Unspecified fall, initial encounter Status: Acute Assessment and Plan: fall precautions PT/OT (5) Anemia: Code(s): D64.9 - Anemia, unspecified Status: Acute Assessment and Plan: Hb 8.2, from 9.7, MCV 102.3 B12 >1000, Folate 6.4, and Isat 12 Venofer 100mg once Occult blood stool GI consult for possible GI bleed since patient dropped from 9.7 to 6.4 this admission monitor h and H (6) Fever: Code(s): R50.9 - Fever, unspecified Status: Acute Assessment and Plan: Patient having fever this morning with T 100.6 and Blood pressure 90/33 CT chest ordered Blood,sputum and urine culture ordered MRSA pending Continue gentle rehydration Started on Cefepime and Doxycycline adjust with clinical course monitor closely on telmetry Plan patient with dementia and ESRD on HD, had a fall and resulting in fracture for left hip s/p ORIF POD #4, patient clinical symptom have improved and seen by her orthopedic, patient is ready to discharge to rehab, patient family is looking for the rehab for the patient and has found the place now waiting for insurance authorization. no family present today, patient complaints pain along the left hip, will apply lidoderm patches. Subjective Date/time seen: 12/11/23 14:44 Interval history: patient with dementia and ESRD on HD, had a fall and resulting in fracture for left hip s/p ORIF POD #4, patient clinical symptom have improved and seen by her orthopedic, patient is ready to discharge to rehab, patient family is looking for the rehab for the patient and has found the place now waiting for insurance authorization. no family present today, patient complaints pain along the left hip, will apply lidoderm patches. Review of Systems Review of Systems: ROS unobtainable: Yes unobtainable due to medical condition ( dementia) Exam Narrative: Elderly frail Patient is comfortable, NAD HEENT: eyes are clear and none icteric LUNGS:CTA HEART: RR S1S2 ABD: BS+, Soft and nontender Lower extremities: no edema SKIN: nonjaundiced Neuro: grossly intact. Objective Data Vital Signs Vital Signs: Vital Signs - 24 hr 12/10/23 16:38 12/10/23 20:01 12/10/23 20:00 Temperature 36.1 C L 36.7 C Pulse Rate 74 67 Respiratory Rate 16 16 Blood Pressure 135/47 L 116/57 L Pulse Oximetry 96 95 Oxygen Delivery Room Air 12/10/23 21:30 12/11/23 06:00 12/11/23 08:09 Temperature 36.5 C 36.8 C Pulse Rate 100 72 Respiratory Rate 16 22 H Blood Pressure 118/60 166/67 H Pulse Oximetry 95 98 100 Oxygen Delivery Room Air 12/11/23 12:53 Temperature 36.5 C Pulse Rate 66 Respiratory Rate 20 Blood Pressure 151/71 H Pulse Oximetry 99 Oxygen Delivery Intake
[2023-12-11 19:56] VITALS: BP 128/54; PULSE 69; RESP 18; TEMP 36.8; O2SAT 98
[2023-12-11] MEDS: traZODone HCL 50 MG TABLET 150 MG PO (20:57)
[2023-12-11] MEDS: QUEtiapine FUMARATE 25 MG TABLET PO (20:58)
[2023-12-11] MEDS: CEPHALEXIN 250 MG CAPSULE PO (20:58)
[2023-12-11 21:32] VITALS: BP 128/60; PULSE 69; RESP 18; TEMP 36.8; O2SAT 98
[2023-12-12] VITALS (19 sets, daily range): BP systolic 113–158; BP diastolic 49–70; PULSE 67–96; RESP 16; TEMP 36–37.1; O2SAT 71–99; BMI 23.7
[2023-12-12 05:53] LABS: Hematocrit 25.2 % (37.0-47.0); Hemoglobin 7.9 g/dL (12.0-15.0); Mean Corpuscular HGB Conc 31.3 g/dl (32-36); Mean Corpuscular Hemoglobin 31.1 pg (26-34); Mean Corpuscular Volume 99.2 fl (80-100); Mean Platelet Volume 9.8 fl (7.4-10.4); Platelet Count Result 214 k/mm3 (150-375); Red Blood Count 2.54 M/mm3 (4.2-5.4); Red Cell Distribution Width 16.1 % (11.5-14.5); White Blood Count 6.4 K/mm3 (4.5-10.0)
[2023-12-12 06:08] LABS: Anion Gap 9 mmol/L (4-12); Blood Urea Nitrogen 30 mg/dL (7-17); Calcium 8.7 mg/dL (8.4-10.2); Carbon Dioxide 28 mmol/L (22-30); Chloride 94 mmol/L (98-107); Estimated CRCL calculation 8 ml/min; Estimated Glomerular Filt Rate 10; Glucose 100 mg/dL (65-110); Magnesium 2.1 mg/dL (1.6-2.3); Phosphorus 2.4 mg/dL (2.5-4.5); Potassium 4.2 mmol/L (3.4-5.0); Sodium 131 mmol/L (137-145)
[2023-12-12] MEDS: DOXYCYCLINE HYCLATE 100 MG TABLET PO (06:46)
[2023-12-12] MEDS: CALCIUM ACETATE 667 MG TABLET 1334 MG PO (09:03)
[2023-12-12] MEDS: VITAMIN E 400 UNIT CAPSULE PO (09:03)
[2023-12-12] MEDS: CYANOCOBALAMIN 500 MCG TABLET PO (09:04)
[2023-12-12] MEDS: FUROSEMIDE 20 MG TABLET PO (09:04)
[2023-12-12] MEDS: dilTIAZem HCL CD 180 MG CAP.24HR PO (09:05)
[2023-12-12] MEDS: ESCITALOPRAM OXALATE 5 MG TABLET PO (09:05)
[2023-12-12] MEDS: FAMOTIDINE 20 MG TABLET 40 MG PO (09:05)
[2023-12-12] MEDS: SENNA/DOCUSATE SODIUM TABLET 2 TAB PO (09:05)
--- NOTE | 2023-12-12 09:24 | PM.PNORT ---
Progress Note: A&P Assessment and Plan (1) Closed intertrochanteric fracture of left femur: Qualifiers: Encounter type: initial encounter Fracture alignment: displaced Qualified Code(s): S72.142A - Displaced intertrochanteric fracture of left femur, initial encounter for closed fracture Code(s): S72.142A - Displaced intertrochanteric fracture of left femur, initial encounter for closed fracture Status: Acute Assessment and Plan: POD #5: INSERTION GAMMA DAMON LEFT HIP, LEFT ANKLE EVALUATION UNDER FLUOROSCOPY PT/OT to begin. WBAT. Walker. HIGH FALL RISK. Pain control. HOLD all narcotics. Improving mentation. Postoperative anemia. 150 cc blood output intraoperatively per OR report. Patient received 1 unit of PRBCs during HD on 12/07. CBC 12/11 of 7.9. Continue to monitor. GI consulted by medicine team for concern for GIB. Suspect anemia is related to postoperative status. Per GI, transfuse for HgB <7. No evidence of hematoma on thigh/leg. SCDs. Incentive Spirometry Use to resume with improved mentation. Monitor Dressing. Change daily. Okay to add ABD for increased drainage. Ice Hip. Protect skin. Monitor Vitals. Monitor I/Os. (2) Closed left fibular fracture: Qualifiers: Encounter type: initial encounter Fibula location: distal Fracture morphology: unspecified fracture morphology Qualified Code(s): S82.832A - Other fracture of upper and lower end of left fibula, initial encounter for closed fracture Code(s): S82.402A - Unspecified fracture of shaft of left fibula, initial encounter for closed fracture Status: Acute Assessment and Plan: Fluoroscopic views of the left ankle which occurred intraoperatively reveal no fracture. No bruising or swelling noted. No c/o pain. Continue to monitor. (3) Dementia: Qualifiers: Dementia type: vascular dementia Dementia severity: unspecified severity Dementia behavioral or psychological symptom: with anxiety Qualified Code(s): F01.54 - Vascular dementia, unspecified severity, with anxiety Code(s): F03.90 - Unspecified dementia, unspecified severity, without behavioral disturbance, psychotic disturbance, mood disturbance, and anxiety Status: Acute Assessment and Plan: HOLD narcotics. Improved mentation. (4) Dialysis patient: Code(s): Z99.2 - Dependence on renal dialysis Status: Acute (5) Personal history of colon cancer: Code(s): Z85.038 - Personal history of other malignant neoplasm of large intestine Status: Acute Assessment and Plan: GI consulted due to anemia by medicine team. Suspect possibly due to postoperative anemia given recent surgical intervention. 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 Da Silva, who agrees with current plan as indicated above. No further recommendations from Dr. Da Silva at this time. Subjective Subjective Date/Time Seen: 12/12/23 09:24 Post Op day: 5 Interval history: POD #5: INSERTION GAMMA DAMON LEFT HIP, LEFT ANKLE EVALUATION UNDER FLUOROSCOPY Patient resting comfortably. Family at bedside. Review of Systems Review of Systems: All systems reviewed & are unremarkable except as noted in HPI and below Exam Resp: Effort & Inspection: normal respiratory effort Cardio: Rate: regular rate Rhythm: regular rhythm GI: GI Palp: Yes Soft to palpation Neuro: Motor exam (neuro): Abnormal motor strength present Extrem: Left lower extremity: hip/thigh Details: swelling Location: of the hip (lateral, soft ) and other (incision c/d/i. ); no crepitus, knee Details: normal to inspection; no tenderness, ankle Details: normal to inspection and no edema; no tenderness and no swelling and foot Details: normal capillary refill, toes wi
--- NOTE | 2023-12-12 10:37 | PM.PNNEP ---
Progress Note: A&P Assessment and Plan (1) End stage renal disease: Code(s): N18.6 - End stage renal disease Status: Chronic Assessment and Plan: HD today continue M/W/F dialysis schedule while hospitalized follow electrolytes, volume status, and clearance primary rn medical surgical = Dr. Cristina Infante (2) Closed intertrochanteric fracture of left femur: Qualifiers: Encounter type: initial encounter Fracture alignment: displaced Qualified Code(s): S72.142A - Displaced intertrochanteric fracture of left femur, initial encounter for closed fracture Code(s): S72.142A - Displaced intertrochanteric fracture of left femur, initial encounter for closed fracture Status: Acute Assessment and Plan: as noted by admission imaging Orthopedic Surgery following s/p repair and gamma oliver insertion (on 12/07/23) pain control PT/OT as tolerated (3) Hypertension: Qualifiers: Hypertension type: unspecified Qualified Code(s): I10 - Essential (primary) hypertension Code(s): I10 - Essential (primary) hypertension Status: Chronic Assessment and Plan: relatively stable follow trend of hemodynamics (4) Afib: Qualifiers: Atrial fibrillation type: permanent Qualified Code(s): I48.21 - Permanent atrial fibrillation Code(s): I48.91 - Unspecified atrial fibrillation Status: Acute Assessment and Plan: rate control strategy anticoagulation on hold - resume today? (5) Anemia: Code(s): D64.9 - Anemia, unspecified Status: Acute Assessment and Plan: due to ESRD and recent operative intervention an element of iron deficiency noted by anemia studies PRBC transfusion per protocol s/p IV venofer ELOY with HD follow trend of H/H (6) Fall: Code(s): W19.XXXA - Unspecified fall, initial encounter Status: Acute Assessment and Plan: fall precautions PT/OT as tolerated Will continue to follow. Subjective Date/time seen: 12/12/23 10:37 Interval history: Follow-up for end stage renal disease on hemodialysis. Tolerating dialysis treatment at the time of my visit (seen on HD at 10:25AM); resting comfortably when seen; mentation remains at baseline; no other issues/events overnight or earlier this morning; pain control seems satisfactory. Exam Narrative: General: elderly female in NAD Heart: normal S1 and S2; no rub Lungs: clear anteriorly Abdomen: soft, nontender, nondistended, positive bowel sounds Extremities: no cyanosis or clubbing; no edema Skin: warm and dry Objective Data Vital Signs Vital Signs: Vital Signs Temp Pulse Resp BP Pulse Ox O2 Flow Rate FiO2 12/12/23 10:30 73 144/60 H 12/12/23 10:15 74 141/56 H 12/12/23 10:00 73 138/61 12/12/23 09:45 70 133/59 L 12/12/23 09:34 67 139/63 12/12/23 09:23 98.8 F 71 16 140/58 L 97 12/12/23 09:23 0 0 12/12/23 06:00 98.6 F 73 16 136/66 99 12/11/23 19:56 98.3 F 69 18 128/54 L 98 12/11/23 21:32 98.3 F 69 18 128/60 98 Intake/Output Intake/Output: Intake & Output 12/09/23 12/10/23 12/11/23 12/12/23 23:59 23:59 23:59 23:59 Intake Total 640 1090 300 0 Output Total 0 1000 Balance 640 90 300 0 Meds/Results Medications: Active Medications Generic Name Dose Route Start Last Admin Trade Name Freq PRN Reason Stop Dose Admin Acetaminophen 500 mg 12/07/23 11:28 12/11/23 16:42 Acetaminophen 500 Mg Tablet PO 500 mg Q6H PRN Administration Pain Rated 1-3 Acetaminophen 650 mg 12/08/23 16:11 12/08/23 18:18 Acetaminophen 650 Mg Suppository RECTAL 650 mg Q6H PRN Administration Mild Pain (1-3) or Fever Apixaban 2.5 mg 12/07/23 21:00 12/09/23 12:01 Apixaban 2.5 Mg Tablet PO Not Given Q12HR [facility] Calcium Acetate 1,334 mg 12/06/23 08:00 12/12/23 11:38 Calcium Acetate 66
--- NOTE | 2023-12-12 10:37 | P.PNNP_ITS ---
Progress Note: A&P Assessment and Plan (1) End stage renal disease: Code(s): N18.6 - End stage renal disease Status: Chronic Assessment and Plan: * HD today * continue M/W/F dialysis schedule while hospitalized * follow electrolytes, volume status, and clearance * primary family therapist = Dr. Cristina Infante (2) Closed intertrochanteric fracture of left femur: Qualifiers: Encounter type: initial encounter Fracture alignment: displaced Qualified Code(s): S72.142A - Displaced intertrochanteric fracture of left femur, initial encounter for closed fracture Code(s): S72.142A - Displaced intertrochanteric fracture of left femur, initial encounter for closed fracture Status: Acute Assessment and Plan: * as noted by admission imaging * Orthopedic Surgery following * s/p repair and gamma oliver insertion (on 12/07/23) * pain control * PT/OT as tolerated (3) Hypertension: Qualifiers: Hypertension type: unspecified Qualified Code(s): I10 - Essential (primary) hypertension Code(s): I10 - Essential (primary) hypertension Status: Chronic Assessment and Plan: * relatively stable * follow trend of hemodynamics (4) Afib: Qualifiers: Atrial fibrillation type: permanent Qualified Code(s): I48.21 - Permanent atrial fibrillation Code(s): I48.91 - Unspecified atrial fibrillation Status: Acute Assessment and Plan: * rate control strategy * anticoagulation on hold - resume today? (5) Anemia: Code(s): D64.9 - Anemia, unspecified Status: Acute Assessment and Plan: * due to ESRD and recent operative intervention * an element of iron deficiency noted by anemia studies * PRBC transfusion per protocol * s/p IV venofer * ELOY with HD * follow trend of H/H (6) Fall: Code(s): W19.XXXA - Unspecified fall, initial encounter Status: Acute Assessment and Plan: * fall precautions * PT/OT as tolerated Will continue to follow. Subjective Date/time seen: 12/12/23 10:37 Interval history: Follow-up for end stage renal disease on hemodialysis. Tolerating dialysis treatment at the time of my visit (seen on HD at 10:25AM); resting comfortably when seen; mentation remains at baseline; no other issues/events overnight or earlier this morning; pain control seems satisfactory. Exam Narrative: General: elderly female in NAD Heart: normal S1 and S2; no rub Lungs: clear anteriorly Abdomen: soft, nontender, nondistended, positive bowel sounds Extremities: no cyanosis or clubbing; no edema Skin: warm and dry Objective Data Vital Signs Vital Signs: Vital Signs Temp Pulse Resp BP Pulse Ox O2 Flow Rate FiO2 12/12/23 10:30 73 144/60 H 12/12/23 10:15 74 141/56 H 12/12/23 10:00 73 138/61 12/12/23 09:45 70 133/59 L 12/12/23 09:34 67 139/63 12/12/23 09:23 98.8 F 71 16 140/58 L 97 12/12/23 09:23 0 0 12/12/23 06:00 98.6 F 73 16 136/66 99 12/11/23 19:56 98.3 F 69 18 128/54 L 98 12/11/23 21:32 98.3 F 69 18 128/60 98 Intake/Output Intake/Output: Intake & Output 12/09/23 12/10/23 12/11/23 12/12/23 23:59 23:5
--- NOTE | 2023-12-12 11:26 | PCPTNOTE ---
The patient treatment was not able to be completed this morning on 12/12/2023 due to patient out of the room for dialysis. Will plan to continue treatment per plan of care.
[2023-12-12] MEDS: EPOETIN ALFA-EPBX 20,000 UNITS/ML VIAL 20000 UNITS IV PUSH (12:40)
[2023-12-12] MEDS: oxyCODONE/ACETAMINOPHEN (*CRX) 5-325 MG TABLET 1 TABLET PO (12:50)
[2023-12-12] MEDS: ENOXAPARIN 30 MG/0.3 ML SYRINGE SUB-Q (12:52)
[2023-12-12] MEDS: LIDOCAINE 5% PATCH 2 PATCH TRANSDERM (12:52)
--- NOTE | 2023-12-12 13:18 | PM.DS ---
DS: Admitting Diagnosis Discharge Date 12/12/23 Admitting Diagnosis Fall DS: Discharge Diagnosis Discharge Diagnosis (1) Closed left fibular fracture: Qualifiers: Encounter type: initial encounter Fibula location: distal Fracture morphology: unspecified fracture morphology Qualified Code(s): S82.832A - Other fracture of upper and lower end of left fibula, initial encounter for closed fracture Code(s): S82.402A - Unspecified fracture of shaft of left fibula, initial encounter for closed fracture Status: Acute (2) Hypertension: Qualifiers: Hypertension type: unspecified Qualified Code(s): I10 - Essential (primary) hypertension Code(s): I10 - Essential (primary) hypertension Status: Chronic (3) Dialysis patient: Code(s): Z99.2 - Dependence on renal dialysis Status: Acute DS: Summary Hospital Course Hospital Course: patient with dementia and ESRD on HD, had a fall and resulting in fracture for left hip s/p ORIF POD #5, patient clinical symptom have improved and seen by her orthopedic, patient is ready to discharge to rehab, patient family is looking for the rehab for the patient and has found the place now waiting for insurance authorization. no family present today, patient complaints pain along the left hip, applied lidoderm patches. Patient had dialysis today, patient is clinically stable, will discharge patient to rehab today. Time Spent with Patient Time attestation: Total time spent providing and/or coordinating discharge services: Exam Narrative: Elderly frail Patient is comfortable, NAD HEENT: eyes are clear and none icteric LUNGS:CTA HEART: RR S1S2 ABD: BS+, Soft and nontender Lower extremities: no edema SKIN: nonjaundiced Neuro: grossly intact. DS: Data Data Completed and Pending Labs on day of discharge: Labs from last 24 hours 12/12/23 05:33 WBC 6.4 RBC 2.54 L Hgb 7.9 L Hct 25.2 L MCV 99.2 MCH 31.1 MCHC 31.3 L RDW 16.1 H Plt Count 214 MPV 9.8 Sodium 131 L Potassium 4.2 Chloride 94 L Carbon Dioxide 28 Anion Gap 9 BUN 30 H Creatinine 4.30 H Estim Creat Clear Calc 8 Estimated GFR 10 L Glucose 100 Calcium 8.7 Phosphorus 2.4 L Magnesium 2.1 Albumin 3.0 L Preliminary micro results at discharge 12/08/23 11:32 Blood Culture - Preliminary Blood 12/08/23 11:37 Blood Culture - Preliminary Blood Discharge Plan Discharge Attending physician on discharge: Pankaj Valenzuela V. Consulting providers: Eliel Roque; Earl Da Silva; Bakari Saavedra; Iris Son; True Teixeira; Luis Purcell; Elham Mitchell; Adelfo Teixeira; Raymond Zarco; Horacio Kapadia V.; Rachid Pittman; Delia Watts Discharging Clinician: Van Chan Patient Disposition: SNF Activity: may shower, no driving and follow weight bearing status Diet: regular and other - see discharge instructions Wound Care Instructions: follow printed instructions Discharge Instructions: Postoperative Hip Fracture Instructions Dr. Earl Da Silva [phone] Dressing to be changed daily with an island dressing beginning on post op day #2. May stop dressing changes at post op day #14. [place] to be removed on post op day #14 Weight bearing: Weight bearing as tolerated. You may shower with your dressing but do not submerge in a bath tub. Do not drive or operate machinery until you are released by your surgeon. Do not walk without a walker for any reason until you are released by your surgeon. Continue home blood thinners, no additional medications indicated. Continue to apply ice to the hip intermittently for additional pain relief. Protect your skin with a towel or pillow case. Continue to follow strict hip fracture precautions. Please contact our office with any questions/concerns regarding your hip at [phone]. Follow up appointment instructions indicated below
[2023-12-12 14:09] LABS: SARS-CoV-2 RNA PCR Negative (Negative)
== END 2023-12-12 15:10 | DRG 480 ==
LOC: ANHED 20:43 → ANH2MED 21:15
PROVIDERS: Internal Medicine; Internal Medicine Nephrology; Nurse Practitioner Family; Orthopaedic Surgery; Admitting Provider Internal Medicine; Emergency Provider Physician Assistant; PCP Emergency Medicine; Visit Provider Family Medicine
PROC: 0QS734Z Reposition Left Upper Femur with Internal Fixation Device, Percutaneous Approach (ICD-10-PCS; CPT 27245; principal; 2023-12-07 08:00)
DX: S72.142A Displaced intertrochanteric fracture of left femur, initial encounter for closed fracture (principal); N18.6 End stage renal disease; I48.21 Permanent atrial fibrillation; I12.0 Hypertensive chronic kidney disease with stage 5 chronic kidney disease or end stage renal disease; J90 Pleural effusion, not elsewhere classified; I31.39 Other pericardial effusion (noninflammatory); D62 Acute posthemorrhagic anemia; R50.82 Postprocedural fever; S82.402A Unspecified fracture of shaft of left fibula, initial encounter for closed fracture; W18.30XA Fall on same level, unspecified, initial encounter; D50.9 Iron deficiency anemia, unspecified; D63.1 Anemia in chronic kidney disease; F03.90 Unspecified dementia, unspecified severity, without behavioral disturbance, psychotic disturbance, mood disturbance, and anxiety; S51.002A Unspecified open wound of left elbow, initial encounter; N25.0 Renal osteodystrophy; E78.5 Hyperlipidemia, unspecified; Z99.2 Dependence on renal dialysis; Z79.01 Long term (current) use of anticoagulants; Z85.828 Personal history of other malignant neoplasm of skin; Z85.038 Personal history of other malignant neoplasm of large intestine; Z11.52 Encounter for screening for COVID-19
CPT/HCPCS: 36415; 36430; 70450; 71045; 71250; 72125; 73502; 73600; 80053; 80069; 81001; 82607; 82728; 82746; 82948; 83540; 83550; 83605; 83735; 84100; 85025; 85027; 86706; 86850; 86900; 86901; 86923; 87040; 87340; 87635; 87641; 92610; 93005; 97110; 97161; 97166; 97530; 97535; 99199; A9270; C1713; G0257; G0378; J0690; J0692; J0780; J1170; J1650; J1756; J2270; J2371; J2405; J2704; J7030; J7040; J7120; P9016; P9047; Q5105

== ENCOUNTER 2024-01-17 08:55 | Emergency (ER) | payer MEDICARE, SELFPAY ==
--- NOTE | ~2024-01-17 | CT_ITS ---
EXAMINATION: CT brain wo con DATE: 01/17/2024 10:02 INDICATION: Anticoagulated patient post fall TECHNIQUE: Computed tomography (CT) of the head was performed without intravenous contrast. Sagittal and coronal reconstructions were performed. The mA was adjusted according to patient size. Iterative reconstruction technique was employed. The dose-length product was 605.33 mGy-cm. COMPARISON: head CT dated 01/03/2024 FINDINGS: To large scalp hematoma centered in the left parietal region. No calvarial fracture. Small focus of l eft frontoparietal acute subarachnoid hemorrhage. No acute intracranial hemorrhage, acute infarction or abnormal extra axial fluid collection. There is mild scattered white matter hypoattenuation consistent with chronic small vessel ischemic di sease. Symmetric prominence of the sulci and and subarachnoid spaces overlying the convexities consi stent with moderateage-appropriate diffuse cerebral volume loss. Ventricles are normal and symmetric . No mass/mass effect. Changes of bilateral intraocular lens replacement. The orbits, paranasal sinus es and mastoid air cells are normal. IMPRESSION: 1. Acute small left frontal parietal subarachnoid hemorrhage. 2. Age-related changes including moderate diffuse volume loss and mild scattered white matter hypoatt enuation consistent with chronic small vessel ischemic disease. Reviewed, dictated and finalized at location A. IMPRESSION: 1. Acute small left frontal parietal subarachnoid hemorrhage. 2. Age-related changes including moderate diffuse volume loss and mild scattere d white matter hypoattenuation consistent with chronic small vessel ischemic di sease.
--- NOTE | ~2024-01-17 | CT_ITS ---
EXAMINATION: CT cervical spine wo con DATE: 01/17/2024 10:03 INDICATION: Fall with head injury TECHNIQUE: Computed tomography (CT) of the cervical spine was performed without intravenous contrast. Automated exposure control and iterative reconstruction technique were employed. The dose-length pro duct was 128.33 mGy-cm. COMPARISON: None FINDINGS: Straightening of the normal cervical lordosis. There is 3 mm anterolisthesis C3 on C4 and 2 mm mendoza listhesis C4 on C5. One-2 mm retrolisthesis C5 on C6. Vertebral body heights are normal. No fracture. Severe disc height loss and severe bilateral uncovertebral osteoarthritis at C5-C6 and C6-C7. Modera te disc height loss with severe right and mild left uncovertebral osteoarthritis at C3-C4 and mild di sc height loss with mild right and moderate left uncovertebral osteoarthritis at C4-C5. There is mult ilevel mild central canal stenosis resulting from the spondylolisthesis at C3-C4 and C4-C5 and from s mall posterior disc osteophyte complexes at C5-C6 and C6-C7. There is also multilevel severe bilatera l cervical facet osteoarthritis. Moderate neural foraminal stenosis bilaterally at C3-C4, C5-C6 and C 6-C7 and mild at the remaining cervical levels. Atherosclerotic calcifications at the bilateral carot id bulbs. Cervical soft tissues are otherwise unremarkable. Mild right apical pleural-parenchymal sca rring. IMPRESSION: 1. Severe cervical spondylosis. No acute osseous abnormality. Reviewed, dictated and finalized at location A.
[2024-01-17 09:04] VITALS: BP 173/80; PULSE 73; RESP 16; TEMP 36.5; O2SAT 100
[2024-01-17 09:13] VITALS: BP 173/83; PULSE 82; RESP 16; O2SAT 98
--- NOTE | 2024-01-17 09:16 | ED_ITS ---
HPI - Fall General Chief Complaint: Fall Stated Complaint: fall Time Seen by Provider: 01/17/24 09:03 Source: patient, family ( Daughter and grandson) and RN notes reviewed Mode of arrival: ambulatory ( transported by family) History of Present Illness HPI Narrative: Patient presents as a fall, presumably from ground level, at her nursing facility. She struck the back of her head. Patient able to tell me if she lost consciousness. She is on Eliquis. She has a history of end-stage renal disease and undergoes hemodialysis Mondays, Wednesdays, and Fridays. Per family report she received a full run yesterday without any complications or early termination. patient is complaining of a headache. She denies any chest pain, shortness breath, or abdominal pain. Related Data Home Medications Medication Instructions Recorded Confirmed apixaban 2.5 mg tablet (Eliquis) 2.5 mg PO BID 09/05/20 01/13/24 diltiazem HCl 180 mg 180 mg PO QAM 03/21/23 01/13/24 capsule,extended release 24 hr diclofenac sodium 1 % topical gel 1 ea topical QID PRN arthritis 06/14/23 01/13/24 ergocalciferol (vitamin D2) 1,250 50,000 unit PO WEEKLY 12/05/23 01/13/24 mcg (50,000 unit) capsule (Vitamin D2) magnesium hydroxide 400 mg/5 mL 30 ml PO DAILY PRN Constipation 01/03/24 01/13/24 oral suspension (Milk of Magnesia) omeprazole magnesium 20 mg 20 mg PO DAILY 01/03/24 01/13/24 capsule,delayed release (Acid Cyber Special Agent (omeprazole)) ondansetron 4 mg disintegrating 4 mg PO Q6H PRN Nausea And Vomiting 01/03/24 01/13/24 tablet sennosides 8.6 mg-docusate sodium 2 tab PO BID PRN Constipation 01/03/24 01/13/24 50 mg tablet (Senokot-S) cholestyramine (with sugar) 4 gram 1 ea PO .COMPLEX Diarrhea 01/13/24 01/13/24 powder for susp in a packet Allergies Allergy/AdvReac Type Severity Reaction Status Date / Time clonidine Allergy Unknown Verified 01/17/24 09:08 zolpidem [From Ambien] Allergy RED Verified 01/17/24 09:08 FACE/RASH PMFSH Past Medical History Medical History Acute on chronic anemia Afib Basal cell carcinoma Belching Chronic diarrhea Dementia Dialysis patient ESRD (end stage renal disease) on dialysis Hyperlipidemia Hypertension Inguinal hernia Insomnia Right rotator cuff tear Spasticity Vitamin D deficiency Family History Family History Father Cancer Mother Diabetes mellitus Social History Social History (Updated 01/18/24 @ 06:21 by Ling Duff MD) Smoking status: Never smoker Second hand tobacco smoke exposure: No Alcohol intake: never Substance use: never Substance use type: does not use Do You Feel Safe in your Home?: Yes Lack of Transportation: No Lack of Food: Never True Current Housing: I Have Housing Concerned About Future Housing: No Difficulty Paying Gas/Electric Bills: No Difficulty Paying for Meds: No Currently Unemployed: No Education: High School Diploma/GED Difficulty w/ Childcare or Family Care: No Living arrangements: assisted living Additional living arrangements comments: [place] Occupation/Education: retired 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 HEAD: Scalp Hematoma but no tenderness to palpation or laceration/bleeding. EYES: Non injected, non icteric. PERRL. ENT: Nares clear, no rhinorrhea or epistaxis. NECK: Supple. No tenderness to palpation of cervical spine or bones are midline without bony step-offs or deformity. CHEST: Nonlabored. No respiratory distress. HEART: Regular rate and rhythm. ABDOMEN: Soft, nondistended. EXTREMITIES: Normal range of motion. Dialysis fistula in the left upper extremity with palpable thrill distally. SKIN: Warm, dry, no rash. NEURO: No focal deficits. Alert and oriented. Sensation intact throughout. PSYCH: Normal/congruent mood and affect. Course Vital Signs Vital signs: Vital Signs Temperature 97.7 F 01/17/24 09:04 Pulse Rate 73 01/17/24 09:04 Respiratory Rate 16 01/17/24 09:04 Blood Pressure 173/80 H 01/17/24 09:04 Pulse Oximetry 100 01/17/24 09:04 Temperature 97.7 F 01/17/24 09:04 Pulse Rate 82 01/17/24 11:07 Respiratory Rate 16 01/17/24 11:07 Blood Pressure 132/82 01/17/24 11:07 Pulse Oximetry 100 01/17/24 11:07 MDM - Fall MDM Narrative Medical decision making narrative: Patient Presents after a phone at her nursing facility, presumably from ground level. Patient is unable to tell me if she lost consciousness. She is compl aining of a headache otherwise neurovascularly intact. In the emergency department she is afebrile with vital signs notable for hypertension. Patient is in rate controlled atrial fibrillation in the emergency department. Atrial fibrillation already exists on her past medical history per review of the EMR thus this is not a new diagnosis. I discussed with radiologist Dr. Rodriguez at approximately 10:15 a.m. that patient has evidence of a left frontal parietal subarachnoid hemorrhage. Patient is on Eliquis so Kcentra reversal agent ordered. She has a macrocytic anemia that is otherwise stable from previous. BUN and creatinine consistent with patient's known end-stage renal disease for which she undergoes hemodialysis Wednesdays and Fridays, including yesterday which was done fully w/o complication or early termination. Informed patient's family. Patient has received care through [facility] before and that would be their preferred location especially as patient has a granddaughter who works in the neuro ICU there. Spoke with [facility] at 10:27 who connected me to ED. Spoke with Dr. Figueroa in the emergency department at 10:34am. Patient will be a level 2 emergency department to emergency department transfer. Discussed with pharmacy to ensure confirmation of the order for KCentra; they verified. Patient is hemodynamically stable. However, there are delays in arranging ground transportation as there are 2 crews unavailable and another with a 2 hour wait time. Given this is a time critical diagnosis, I did discuss with the family that the recommendation would be to arrange helicopter. They verifies understanding and will proceed with making these logistical arrangements. Patient remains hemodynamically stable throughout. Blood pressure is maint ained as is the head of the bed upright. Critical Care: 1 or more vital organ systems impaired with a high probability of imminent or life-threatening deterioration in the patient's condition requi ring frequent personal assessment and manipulation of the patient's condition. This included time spent evaluating the patient, speaking with EMS pre-hospital personnel and family, reviewing/interpreting laboratory/imaging studies, discussing the case with consultants or admitting teams, retrieving data and reviewing charts, monitoring for decompensation, documenting the visit, and performing bundled procedures exclusive of separately billed procedures. Differential Diagnosis Differential diagnosis: Likely other ( Intracranial hemorrhage, electrolyte abnormalities, cervical spine fracture dislocation) Lab Data Attestation: I reviewed the patient's lab results. Lab results narrative: Hypoalbuminemia 01/17/24 09:42 01/17/24 09:42 Labs: Lab Results 01/17/24 Range/Units 09:42 WBC 9.6 (4.5-10.0) K/mm3 RBC 2.75 L (4.2-5.4) M/mm3 Hgb 8.8 L (12.0-15.0) g/dL Hct 28.2 L (37.0-47.0) % MCV 102.5 H (80-100) fl MCH 32.0 (26-34) pg MCHC 31.2 L (32-36) g/dl RDW 17.8 H (11.5-14.5) % Plt Count 274 (150-375) k/mm3 MPV 8.7 (7.4-10.4) fl Immature Gran % (Auto) 0.6 H (0-0.5) % Neut % (Auto) 81.8 H (45.5-73.1) % Lymph % (Auto) 9.5 L (18.3-44.2) % [place] % (Auto) 6.8 (2.6-8.5) % Eos % (Auto) 0.9 (0-4.4) % Baso % (Auto) 0.4 (0.2-1.2) % Lymph # (Auto) 0.91 (0.9-3.2) K/mm3 [place] # (Auto) 0.7 H (0.1-0.6) K/mm3 Eos # (Auto) 0.1 (0-0.3) K/mm3 Baso # (Auto) 0.0 (0.0-0.1) K/mm3 Abs Immat Gran (auto) 0.06 H (0.00-0.031) K/mm3 Absolute Neuts (auto) 7.9 H (1.3-6.7) K/mm3 Absolute Nucleated RBC 0.000 (0.0-0.012) K/mm3 Nucleated RBC % 0.0 (0.0-0.2) % PT 16.4 H (11.1-14.7) Seconds INR 1.3 APTT 30.6 (22.3-36.8) Seconds Sodium 138 (137-145) mmol/L Potassium 3.6 (3.4-5.0) mmol/L Chloride 99 (98-107) mmol/L Carbon Dioxide 30 (22-30) mmol/L Anion Gap 9 (4-12) mmol/L BUN 26 H (7-17) mg/dL Creatinine 3.60 H (0.7-1.0) mg/dL Estim Creat Clear Calc Not Reportable Estimated GFR 12 L (59 - ) Glucose 111 H (65-110) mg/dL Calcium 8.1 L (8.4-10.2) mg/dL Total Bilirubin 0.7 (0.2-1.3) mg/dL AST 22 (14-36) U/L ALT 11 (6-35) U/L Alkaline Phosphatase 98 (38-126) U/L Total Protein 6.0 L (6.3-8.2) g/dL Albumin 3.2 L (3.5-5.1) g/dL Imaging Data Radiologist's impression: Impressions Head CT 01/17/24 10:07 IMPRESSION: 1. Acute small left frontal parietal subarachnoid hemorrhage. 2. Age-related changes including moderate diffuse volume loss and mild scattered white matter hypoattenuation consistent with chronic small vessel ischemic disease. Cervical Spine CT 01/17/24 10:19 IMPRESSION: 1. Severe cervical spondylosis. No acute osseous abnormality. ECG Data EKG #1: Attestation: I personally reviewed and interpreted this ECG as follows: ECG completion date: 01/17/24 ECG completion time: 09:45 Interpretation: Irregularly irregular rhythm consistent with atrial fibrillation at a rate of 70 beats per minute. QRS 122. QT/QTC 439/460. Left axis deviation (QRS is positive with dominant R wave in Lead I; QRS is negative with dominant S wave in III, and aVF and nearly complete in II). No T-wave inversions. Critical Care Time Critical Care Time Critical Care Time: Yes Total Critical Care Time: 35 Discharge Plan Discharge Clinical Impression: Fall, Atrial fibrillation, Subarachnoid hemorrhage, Anemia, macrocytic, Chronic anticoagulation, Cervical spondylosis, ESRD on dialysis, Hypoalbuminemia Patient Disposition: Acute Care Hospital Condition: Serious Prescriptions: No Action Eliquis 2.5 mg tablet 2.5 mg PO BID escitalopram oxalate 10 mg tablet 10 mg PO DAILY Qty: 90 3RF furosemide 20 mg tablet 20 mg PO QAM PRN (Reason: edema) Qty: 90 2RF meloxicam 7.5 mg tablet 7.5 mg PO DAILY Qty: 90 3RF cholestyramine (with sugar) 4 gram powder in packet 1 ea PO .COMPLEX Rx Instructions: 1 ea orally q hs . Hold for 4 days if constipation; ergocalciferol (vitamin D2) [Vitamin D2] 1,250 mcg (50,000 unit) capsule 50,000 unit PO WEEKLY Rx Instructions: friday lidocaine [Lidoderm] 5 % Adhesive Patch,Medicated 2 patch transdermal DAILY Qty: 15 0RF diltiazem HCl 180 mg capsule,extended release 24hr 180 mg PO QAM diclofenac sodium 1 % gel 1 ea TOPICAL QID PRN (Reason: arthritis) Rx Instructions: neck magnesium hydroxide [Milk of Magnesia] 400 mg/5 mL Suspension 30 ml PO DAILY PRN (Reason: Constipation) ondansetron 4 mg Tablet,Disintegrating 4 mg PO Q6H PRN (Reason: Nausea And Vomiting) omeprazole magnesium [Acid Cyber Special Agent (omeprazole)] 20 mg Capsule,Delayed Release(Dr/Ec) 20 mg PO DAILY sennosides-docusate sodium [Senokot-S] 8.6-50 mg tablet 2 tab PO BID PRN (Reason: Constipation) acetaminophen [Tylenol] 325 mg capsule 650 mg PO Q6H PRN (Reason: pain) Qty: 120 0RF vitamin E (dl, acetate) 180 mg (400 unit) capsule 180 mg PO DAILY Qty: 90 1RF trazodone 150 mg tablet 150 mg PO QHS Qty: 90 1RF (DME) wheel chair See Rx Instructions .Route .MEDSUPPLY Qty: 1 0RF Rx Instructions: As directed Follow-up/Referrals: Sade Garcia MD [Primary Care Provider] - Time of Disposition: 10:36
--- NOTE | 2024-01-17 09:25 | ECG_ITS ---
Test Date: 2024-01-17 09:45:59 Measurements Intervals [place] Rate: 70 P: 0 WA: 0 QRS: -40 QRSD: 122 T: 41 QT: 439 QTc: 477 Interpretive Statements ATRIAL FIBRILLATION LEFT AXIS DEVIATION INTRAVENTRICULAR CONDUCTION DELAY VOLTAGE CRITERIA FOR LVH CANNOT R/O SEPTAL INFARCT, AGE INDETERMINATE BASELINE ARTIFACT- I, II, III, AVR, AVL, AVF, V1, V5 ABNORMAL ECG Compared to ECG 01/03/2024 13:10:21 HEART RATE HAS INCREASED Electronically Signed On 01-17-2024 11:07:25 CDT by Lencho Bermudez D.O.
[2024-01-17 09:53] LABS: Basophils Percent Auto 0.4 % (0.2-1.2); Eosinophils Absolute Auto 0.1 K/mm3 (0-0.3); Eosinophils Percent Auto 0.9 % (0-4.4); Hematocrit 28.2 % (37.0-47.0); Hemoglobin 8.8 g/dL (12.0-15.0); Immature Granulocyte Absolute 0.06 K/mm3 (0.00-0.031); Immature Granulocyte Percent A 0.6 % (0-0.5); Lymphocytes Absolute Auto 0.91 K/mm3 (0.9-3.2); Lymphocytes Percent Auto 9.5 % (18.3-44.2); Mean Corpuscular HGB Conc 31.2 g/dl (32-36); Mean Corpuscular Volume 102.5 fl (80-100); Mean Platelet Volume 8.7 fl (7.4-10.4); Monocytes Absolute Auto 0.7 K/mm3 (0.1-0.6); Monocytes Percent Auto 6.8 % (2.6-8.5); Neutrophils Absolute Auto 7.9 K/mm3 (1.3-6.7); Neutrophils Percent Auto 81.8 % (45.5-73.1); Platelet Count Result 274 k/mm3 (150-375); Red Blood Count 2.75 M/mm3 (4.2-5.4); Red Cell Distribution Width 17.8 % (11.5-14.5); White Blood Count 9.6 K/mm3 (4.5-10.0)
[2024-01-17 10:03] LABS: INR 1.3; Partial Thromboplastin Time 30.6 Seconds (22.3-36.8); Prothrombin Time 16.4 Seconds (11.1-14.7)
[2024-01-17 10:09] LABS: Alanine Aminotransferase 11 U/L (6-35); Albumin Level 3.2 g/dL (3.5-5.1); Alkaline Phosphatase 98 U/L (38-126); Anion Gap 9 mmol/L (4-12); Aspartate Amino Transferase 22 U/L (14-36); Bilirubin,Total 0.7 mg/dL (0.2-1.3); Blood Urea Nitrogen 26 mg/dL (7-17); Calcium 8.1 mg/dL (8.4-10.2); Carbon Dioxide 30 mmol/L (22-30); Chloride 99 mmol/L (98-107); Estimated Glomerular Filt Rate 12; Glucose 111 mg/dL (65-110); Potassium 3.6 mmol/L (3.4-5.0); Sodium 138 mmol/L (137-145)
[2024-01-17 10:19] VITALS: BP 128/78; PULSE 68; RESP 18; O2SAT 100
[2024-01-17] MEDS: ACETAMINOPHEN 325 MG TABLET 650 MG PO (10:25)
[2024-01-17 11:07] VITALS: BP 132/82; PULSE 82; RESP 16; O2SAT 100
--- NOTE | 2024-01-17 11:09 | PC.NURSE ---
Pt transferred [facility], Kcentra Premix IV sent with the transported team.
== END 2024-01-17 11:26 | disposition short-term general hospital (02) ==
PROVIDERS: Emergency Provider Student in an Organized Health Care Education/Training Program; PCP Family Medicine
DX: S06.6XAA Traumatic subarachnoid hemorrhage with loss of consciousness status unknown, initial encounter (principal); I12.0 Hypertensive chronic kidney disease with stage 5 chronic kidney disease or end stage renal disease; N18.6 End stage renal disease; I48.91 Unspecified atrial fibrillation; E88.09 Other disorders of plasma-protein metabolism, not elsewhere classified; D53.9 Nutritional anemia, unspecified; M47.812 Spondylosis without myelopathy or radiculopathy, cervical region; F03.90 Unspecified dementia, unspecified severity, without behavioral disturbance, psychotic disturbance, mood disturbance, and anxiety; E78.5 Hyperlipidemia, unspecified; E55.9 Vitamin D deficiency, unspecified; Z99.2 Dependence on renal dialysis; Z85.828 Personal history of other malignant neoplasm of skin; Z79.01 Long term (current) use of anticoagulants; Z79.899 Other long term (current) drug therapy; I45.9 Conduction disorder, unspecified; R94.31 Abnormal electrocardiogram [ECG] [EKG]; W18.30XA Fall on same level, unspecified, initial encounter
CPT/HCPCS: 36415; 70450; 72125; 80053; 85025; 85610; 85730; 93005; 99291; A9270

== ENCOUNTER 2024-02-13 11:18 | Outpatient (NON) | payer MEDICARE, SELFPAY | END 2024-02-13 11:19 | disposition home or self-care (01) | PROVIDERS: PCP Family Medicine; Visit Provider Student in an Organized Health Care Education/Training Program | DX: K52.9 Noninfective gastroenteritis and colitis, unspecified (principal) | CPT/HCPCS: 87045; 87427; 87449 ==

== ENCOUNTER 2024-02-16 07:28 | Outpatient (NON) | payer MEDICARE, SELFPAY ==
[2024-02-16 08:28] LABS: Add Urine Microscopic? YES; Appearance Urine Turbid (Clear); Bacteria Urine 4+ /hpf; Bilirubin Urine Negative (Negative); Blood Urine 2+ (Negative); Calcium Oxalate Crystals Urine Present /hpf; Color Urine Yellow (Yellow); Glucose Urine UA Negative (Negative); Ketones Urine Trace mg/dL (Negative); Leukocyte Esterase Ur 3+ LEU/UL (Negative); Need Manual Microscopic Reviewed; Nitrate Urine Negative (Negative); Protein Urine 3+ mg/dL (Negative); RBC Urine 21-50 /hpf (0-2); Specific Grav Ur 1.012 (1.001-1.035); Squamous Epithelial Cell Urine Many /hpf (Few); Urobilinogen Urine 0.2 mg/dL (<2.0); WBC Clumps Urine Present /HPF; WBC Urine >100 /hpf (0-3)
== END 2024-02-16 07:29 | disposition home or self-care (01) ==
LOC: ANHLAB 07:29
PROVIDERS: PCP Family Medicine; Visit Provider Student in an Organized Health Care Education/Training Program
DX: R39.9 Unspecified symptoms and signs involving the genitourinary system (principal)
CPT/HCPCS: 81001; 87086

== ENCOUNTER 2024-03-26 06:49 | Emergency (ER) | payer MEDICARE, SELFPAY ==
--- NOTE | ~2024-03-26 | XR_ITS ---
EXAMINATION: XR foot LT min 3V DATE: 03/26/2024 08:09 INDICATION: Left foot injury. TECHNIQUE: 3 views of left foot were obtained. COMPARISON: None. FINDINGS: There is a bunionette deformity of the fifth digit. No fracture. There is mature periosteal new bone formation of the diaphyses of second-fourth metatarsals, likely secondary to venous stasis. There is mild osteoarthritis of first metatarsophalangeal joint and some of the interphalangeal join ts and midfoot joints. There is an enthesophyte at plantar aspect of calcaneal tuberosity. IMPRESSION: 1. Mild polyarticular osteoarthritis. 2. Bunionette. Reviewed, dictated and finalized at location A. ANICAL DRAFTER
--- NOTE | ~2024-03-26 | XR_ITS ---
EXAMINATION: XR shoulder LT min 2V DATE: 03/26/2024 08:09 INDICATION: Left shoulder injury. TECHNIQUE: 3 views of left shoulder were obtained. COMPARISON: None. FINDINGS: Alignment is normal. No fracture. There is mild osteoarthritis of glenohumeral joint and ac romioclavicular joint. IMPRESSION: 1. Mild polyarticular osteoarthritis. Reviewed, dictated and finalized at location A. MOTIVE GENERAL SALES MANAGER
--- NOTE | ~2024-03-26 | XR_ITS ---
EXAMINATION: XR elbow LT min 3V DATE: 03/26/2024 08:09 INDICATION: Left elbow injury. TECHNIQUE: 3 views of left elbow were obtained. COMPARISON: None. FINDINGS: There is a comminuted fracture of olecranon of proximal ulna. The main distal fracture frag ment demonstrates 11 mm distraction and flexion. There is mild elbow joint osteoarthritis. There is a n elbow joint effusion. There is soft tissue swelling around the elbow. IMPRESSION: 1. Comminuted fracture of olecranon of proximal ulna. Reviewed, dictated and finalized at location A. PROCESS ENGINEER
--- NOTE | ~2024-03-26 | XR_ITS ---
XR chest 1V 03/26/2024 08:10 Indication: Hip fracture. Procedure: AP view of the chest Comparison: Comparison to multiple prior studies sequentially, with oldest reviewed study dated 04/12. Findings: Moderate cardiomegaly. No focal air space disease, pulmonary edema, pleural effusion or danilo pected pneumothorax. There is atelectasis/scarring left mid lung unchanged. Impression: 1: No acute cardiopulmonary disease. 2: Stable moderate cardiomegaly. Reviewed, dictated and finalized at location B. ERADISH MAKER Impression: 1: No acute cardiopulmonary disease. 2: Stable moderate cardiomegaly.
--- NOTE | ~2024-03-26 | CT_ITS ---
EXAMINATION: CT brain wo con DATE: 03/26/2024 07:54 INDICATION: Status post fall. Head injury. TECHNIQUE: Computed tomography (CT) of the head was performed without intravenous contrast. The dose- length product was 605.33 mGy-cm. Automated exposure control and iterative reconstruction technique w ere employed. COMPARISON: 01/17/2024 FINDINGS: Generalized atrophy. There are scattered moderate periventricular and subcortical white mat ter changes, most likely related to small vessel ischemic disease (microangiopathy). No ventriculomeg jazmyn or midline shift. Basilar cisterns are patent. No acute intracranial hemorrhage, infarction, mass or mass effect. There is intracranial atherosclerosis. No depressed skull fractures. IMPRESSION: 1. No acute intracranial abnormality. Reviewed, dictated and finalized at location B. MBLER DECK AND HULL
--- NOTE | ~2024-03-26 | XR_ITS ---
XR hip LT 2V w AP pelvis 03/26/2024 08:10 Indication: . Status post fall. Hip pain. Procedure: 3 views left hip Comparison: 12/05/2023 Findings: There is a left femoral intertrochanteric fracture with mild varus angulation transfixed by dynamic compression screws and intramedullary oliver. No prior studies are available postoperatively to assess for interval change. Cannot exclude acute superimposed on chronic femoral fracture. Osteopeni a. There is atherosclerosis. There is a single distal interlocking screw. Impression: 1: Intraoperative fixation of left femoral intertrochanteric fracture with mild varus angulation. Can not exclude acute superimposed on chronic fracture. Reviewed, dictated and finalized at location B. BOARD DESIGNER Impression: 1: Intraoperative fixation of left femoral intertrochanteric fracture with mild varus angulation. Cannot exclude acute superimposed on chronic fracture.
[2024-03-26 06:40] VITALS: PULSE 71; RESP 20; O2SAT 95
--- NOTE | 2024-03-26 06:58 | ECG_ITS ---
Test Date: 2024-03-26 07:11:56 Measurements Intervals [place] Rate: 71 P: 0 MT: 0 QRS: -53 QRSD: 123 T: 96 QT: 455 QTc: 497 Interpretive Statements ATRIAL FIBRILLATION LEFT ANTERIOR FASCICULAR BLOCK [QRS AXIS <= -45, QR IN I, RS IN II] MINIMAL VOLTAGE CRITERIA FOR LVH, CONSIDER NORMAL VARIANT [MEETS CRITERIA IN ONE OF: R(aVL), S(V1), R(V5), R(V5/V6)+S(V1)] SEPTAL MYOCARDIAL INFARCTION , PROBABLY OLD [40+ ms Q WAVE IN V1/V2] Compared to ECG 01/17/2024 09:45:59 NO SIGNIFICANT CHANGES Electronically Signed On 03-26-2024 16:56:57 [employer] by Nicolás Gonzalez M.D.
[2024-03-26 07:08] LABS: Basophils Percent Auto 0.5 % (0.2-1.2); Eosinophils Absolute Auto 0.1 K/mm3 (0-0.3); Eosinophils Percent Auto 1.3 % (0-4.4); Hematocrit 30.2 % (37.0-47.0); Hemoglobin 9.6 g/dL (12.0-15.0); Immature Granulocyte Absolute 0.13 K/mm3 (0.00-0.031); Immature Granulocyte Percent A 1.6 % (0-0.5); Lymphocytes Absolute Auto 1.47 K/mm3 (0.9-3.2); Mean Corpuscular HGB Conc 31.8 g/dl (32-36); Mean Corpuscular Hemoglobin 30.9 pg (26-34); Mean Corpuscular Volume 97.1 fl (80-100); Mean Platelet Volume 8.9 fl (7.4-10.4); Monocytes Absolute Auto 0.6 K/mm3 (0.1-0.6); Monocytes Percent Auto 7.7 % (2.6-8.5); Neutrophils Absolute Auto 5.8 K/mm3 (1.3-6.7); Neutrophils Percent Auto 70.9 % (45.5-73.1); Platelet Count Result 258 k/mm3 (150-375); Red Blood Count 3.11 M/mm3 (4.2-5.4); Red Cell Distribution Width 16.3 % (11.5-14.5); White Blood Count 8.2 K/mm3 (4.5-10.0)
[2024-03-26 07:32] LABS: Prothrombin Time 13.2 Seconds (11.1-14.7)
[2024-03-26 07:33] LABS: Partial Thromboplastin Time 30.4 Seconds (22.3-36.8)
[2024-03-26 07:37] LABS: Alanine Aminotransferase 13 U/L (6-35); Albumin Level 3.1 g/dL (3.5-5.1); Alkaline Phosphatase 77 U/L (38-126); Anion Gap 6 mmol/L (4-12); Aspartate Amino Transferase 23 U/L (14-36); Bilirubin,Total 0.7 mg/dL (0.2-1.3); Blood Urea Nitrogen 29 mg/dL (7-17); Calcium 8.1 mg/dL (8.4-10.2); Carbon Dioxide 30 mmol/L (22-30); Chloride 98 mmol/L (98-107); Estimated CRCL calculation 8 ml/min; Estimated Glomerular Filt Rate 11; Glucose 98 mg/dL (65-110); Potassium 3.9 mmol/L (3.4-5.0); Sodium 134 mmol/L (137-145)
[2024-03-26 09:00] VITALS: BP 171/75; PULSE 76; RESP 14; O2SAT 95
--- NOTE | 2024-03-26 09:11 | ED_ITS ---
HPI - Fall General Chief Complaint: Fall Stated Complaint: glf left hip shoulder elbow +deformities/shortenin Time Seen by Provider: 03/26/24 07:06 History of Present Illness HPI Narrative: Patient is an 88-year-old female with history of dementia who presents to the ER after a fall. Recently had a surgery on the left hip and had IM oliver placed. Patient cannot provide any history. She does have pain at the left elbow and cannot perform range of motion. It is wrapped in bloody gauze. Daughter at bedside Related Data Home Medications ?Medication ?Instructions ?Recorded ?Confirmed ?Last Taken ?Type magnesium hydroxide 400 mg/5 mL 30 ml PO DAILY PRN Constipation 01/03/24 02/11/24 Unknown History oral suspension (Milk of Magnesia) ondansetron 4 mg disintegrating 4 mg PO Q6H PRN Nausea And Vomiting 01/03/24 02/11/24 Unknown History tablet diclofenac sodium 1 % topical gel 4 g topical DAILY PRN arthritis 02/19/24 Unknown History Allergies Allergy/AdvReac Type Severity Reaction Status Date / Time clonidine Allergy Unknown Verified 02/11/24 11:23 zolpidem (From Ambien) Allergy RED Verified 02/11/24 11:23 FACE/RASH Review of Systems 2 Review of Systems: ROS unobtainable: Yes unobtainable due to mental status PMFSH Past Medical History Medical History Acute on chronic anemia Afib Basal cell carcinoma Belching Chronic diarrhea Dementia Dialysis patient ESRD (end stage renal disease) on dialysis Hyperlipidemia Hypertension Inguinal hernia Insomnia Right rotator cuff tear Spasticity Vitamin D deficiency Family History Family History Father Cancer Mother Diabetes mellitus Social History Social History Smoking status: Never smoker Second hand tobacco smoke exposure: No Alcohol intake: never Substance use: never Substance use type: does not use Do You Feel Safe in your Home?: Yes Lack of Transportation: No Lack of Food: Never True Current Housing: I Have Housing Concerned About Future Housing: No Difficulty Paying Gas/Electric Bills: No Difficulty Paying for Meds: No Currently Unemployed: No Education: High School Diploma/GED Difficulty w/ Childcare or Family Care: No Living arrangements: assisted living Additional living arrangements comments: [place] Occupation/Education: retired 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 HEAD: Normocephalic, atraumatic. ENT: Mucous membranes moist. CHEST: Clear to auscultation. No respiratory distress. HEART: Regular rate and rhythm. Normal peripheral pulses. ABDOMEN: Soft, nontender, nondistended. EXTREMITIES: Unable range of motion at the left elbow due to pain. Crepitus noted. No deformity at the shoulders bilaterally. Left hip with swelling but range of motion preserved. Mild swelling dorsum left foot. SKIN: Warm, dry, no rash. NEURO: Awake alert. Does not really follow commands. Course Course Emergency Course: 09: Daughter informed of results. Discussed options. They would like to speak with care coordination about hospice care. 1222: Hospice formally arranged. The the patient will go back to her facility. 1419: Unable to get an ambulance. Family feels comfortable transporting by private vehicle. Vital Signs Vital signs: Vital Signs Pulse Rate 71 03/26/24 06:40 Respiratory Rate 20 03/26/24 06:40 Pulse Oximetry 95 03/26/24 06:40 Oxygen Delivery Room Air 03/26/24 06:40 Pulse Rate 82 03/26/24 11:23 Respiratory Rate 18 03/26/24 11:23 Blood Pressure 164/79 H 03/26/24 11:23 Pulse Oximetry 98 03/26/24 11:23 Oxygen Delivery Room Air 03/26/24 06:40 MDM - Fall Lab Data 03/26/24 07:02 03/26/24 07:02 Labs: Lab Results 03/26/24 03/26/24 Range/Units 07:02 07:03 WBC 8.2 (4.5-10.0) K/mm3 RBC 3.11 L (4.2-5.4) M/mm3 Hgb 9.6 L (12.0-15.0) g/dL Hct 30.2 L (37.0-47.0) % MCV 97.1 (80-100) fl MCH 30.9 (26-34) pg MCHC 31.8 L (32-36) g/dl RDW 16.3 H (11.5-14.5) % Plt Count 258 (150-375) k/mm3 MPV 8.9 (7.4-10.4) fl Immature Gran % (Auto) 1.6 H (0-0.5) % Neut % (Auto) 70.9 (45.5-73.1) % Lymph % (Auto) 18.0 L (18.3-44.2) % [place] % (Auto) 7.7 (2.6-8.5) % Eos % (Auto) 1.3 (0-4.4) % Baso % (Auto) 0.5 (0.2-1.2) % Lymph # (Auto) 1.47 (0.9-3.2) K/mm3 [place] # (Auto) 0.6 (0.1-0.6) K/mm3 Eos # (Auto) 0.1 (0-0.3) K/mm3 Baso # (Auto) 0.0 (0.0-0.1) K/mm3 Abs Immat Gran (auto) 0.13 H (0.00-0.031) K/mm3 Absolute Neuts (auto) 5.8 (1.3-6.7) K/mm3 Absolute Nucleated RBC 0.000 (0.0-0.012) K/mm3 Nucleated RBC % 0.0 (0.0-0.2) % PT 13.2 (11.1-14.7) Seconds INR 1.0 APTT 30.4 (22.3-36.8) Seconds Sodium 134 L (137-145) mmol/L Potassium 3.9 (3.4-5.0) mmol/L Chloride 98 (98-107) mmol/L Carbon Dioxide 30 (22-30) mmol/L Anion Gap 6 (4-12) mmol/L BUN 29 H (7-17) mg/dL Creatinine 3.99 H (0.7-1.0) mg/dL Estim Creat Clear Calc 8 ml/min Estimated GFR 11 L (59 - ) Glucose 98 (65-110) mg/dL Calcium 8.1 L (8.4-10.2) mg/dL Total Bilirubin 0.7 (0.2-1.3) mg/dL AST 23 (14-36) U/L ALT 13 (6-35) U/L Alkaline Phosphatase 77 (38-126) U/L Total Protein 6.0 L (6.3-8.2) g/dL Albumin 3.1 L (3.5-5.1) g/dL Blood Type O Positive Antibody Screen Negative Imaging Data Radiologist's impression: ITS Impressions Head CT 03/26/24 07:55 IMPRESSION: 1. No acute intracranial abnormality. Chest X-Ray 03/26/24 08:10 Impression: 1: No acute cardiopulmonary disease. 2: Stable moderate cardiomegaly. Foot X-Ray 03/26/24 08:10 IMPRESSION: 1. Mild polyarticular osteoarthritis. 2. Bunionette. Elbow X-Ray 03/26/24 08:12 IMPRESSION: 1. Comminuted fracture of olecranon of proximal ulna. Hip/Pelvis X-Ray 03/26/24 08:12 Impression: 1: Intraoperative fixation of left femoral intertrochanteric fracture with mild varus angulation. Cannot exclude acute superimposed on chronic fracture. Shoulder X-Ray 03/26/24 08:13 IMPRESSION: 1. Mild polyarticular osteoarthritis. Discharge Plan Discharge Clinical Impression: Closed olecranon fracture Patient Disposition: Hospice - Home Condition: Stable Instructions: Elbow Fracture (ED) Additional Instructions: Return ER if you have additional concerns. Your meeting hospice packet facility who will help provide end of life care. Patient Language: Omani Prescriptions: No Action (DME) Left heel boot See Rx Instructions .Route .MEDSUPPLY Qty: 1 0RF Rx Instructions: Pt. to wear left heel boot at all times, except when up and walking. Pt. needs pressure off of heel. lidocaine [Lidoderm] 5 % Adhesive Patch,Medicated 2 patch transdermal DAILY Qty: 15 0RF magnesium hydroxide [Milk of Magnesia] 400 mg/5 mL Suspension 30 ml PO DAILY PRN (Reason: Constipation) ondansetron 4 mg Tablet,Disintegrating 4 mg PO Q6H PRN (Reason: Nausea And Vomiting) acetaminophen [Tylenol] 325 mg capsule 650 mg PO Q6H PRN (Reason: pain) Qty: 120 0RF trazodone 150 mg tablet 150 mg PO QHS Qty: 90 1RF (DME) wheel chair See Rx Instructions .Route .MEDSUPPLY Qty: 1 0RF Rx Instructions: As directed cholestyramine (with sugar) 4 gram powder in packet 1 ea PO .COMPLEX PRN (Reason: Diarrhea) Qty: 60 5RF Rx Instructions: 1 ea orally q prn and hs due to diarrhea. Hold for 4 days if constipation; PRN; diclofenac sodium 1 % gel 4 g TOPICAL DAILY PRN (Reason: arthritis) Rx Instructions: neck famotidine 40 mg tablet 40 mg PO QHS Qty: 90 3RF Tums 300 mg (750 mg) tablet,chewable 300 mg PO TID PRN (Reason: dyspepsia) Qty: 90 3RF escitalopram oxalate [Lexapro] 10 mg tablet 10 mg PO DAILY Qty: 90 1RF furosemide 20 mg tablet 20 mg PO QAM Qty: 90 2RF (DME) Tubigrip compression stockings See Rx Instructions .Route .MEDSUPPLY Qty: 1 0RF Rx Instructions: Apply q a.m. to both legs. Remove at bedtime Silver Wound 55 PPM gel 1 applic topical .COMPLEX Qty: 14.2 0RF Rx Instructions: 1 applic topically per facility protocol Pressure ulcer L heel, Skin tear Left lower lg diltiazem HCl 180 mg capsule,extended release 24hr 180 mg PO QAM Qty: 90 1RF menthol-zinc oxide [Calmoseptine] 0.44-20.6 % ointment 1 applic topical QID PRN (Reason: skin irritation) Qty: 113 0RF Rx Instructions: Apply to sacral area for skin irritation cholecalciferol (vitamin D3) 50 mcg (2,000 unit) capsule 50 mcg PO DAILY Qty: 90 1RF Follow-up/Referrals: Sade Garcia MD [Primary Care Provider] - 1 Week
[2024-03-26 11:23] VITALS: BP 164/79; PULSE 82; RESP 18; O2SAT 98
--- NOTE | 2024-03-26 13:14 | PCCCNOTE ---
Called to see pt and family regarding hospice referral. Daughter has previously contacted [facility] and Leni from [facility] contacted, arrangements for medical equipment made now awaiting transportation.
[2024-03-26 14:27] VITALS: BP 149/64; PULSE 87; RESP 23; TEMP 37.1; O2SAT 96
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
== END 2024-03-26 14:40 | disposition hospice, home (50) ==
PROVIDERS: Emergency Medicine; Emergency Provider Emergency Medicine; PCP Family Medicine
DX: F03.90 Unspecified dementia, unspecified severity, without behavioral disturbance, psychotic disturbance, mood disturbance, and anxiety (principal); I12.0 Hypertensive chronic kidney disease with stage 5 chronic kidney disease or end stage renal disease; N18.6 End stage renal disease; E55.9 Vitamin D deficiency, unspecified; E78.5 Hyperlipidemia, unspecified; D64.9 Anemia, unspecified; Z99.2 Dependence on renal dialysis; Z85.828 Personal history of other malignant neoplasm of skin; Z79.899 Other long term (current) drug therapy; I51.7 Cardiomegaly; M19.012 Primary osteoarthritis, left shoulder; M19.072 Primary osteoarthritis, left ankle and foot; M21.622 Bunionette of left foot; I48.91 Unspecified atrial fibrillation; I44.4 Left anterior fascicular block; R94.31 Abnormal electrocardiogram [ECG] [EKG]; W19.XXXA Unspecified fall, initial encounter
CPT/HCPCS: 36415; 70450; 71045; 73030; 73080; 73502; 73630; 80053; 85025; 85610; 85730; 86850; 86900; 86901; 93005; 99284; A4565